=== PATIENT | female | born 1960 | race Caucasian/White ===

== ENCOUNTER 2024-09-18 09:05 | Outpatient (OUT) | payer MEDICARE, SELFPAY ==
[2024-09-18 09:22] LABS: Hemoglobin 13.2 g/dL (12.0-16.0)
[2024-09-18 09:23] LABS: PCO2 VBG 41.9 mmHg (40.0-52.0); pH VBG 7.433 (7.330-7.430)
--- NOTE | 2024-09-18 10:13 | RT_ITS ---
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 Findings were considered accurate and reproducible. No bronchodilator was administered due to normal spirometric values. Spirometry: -FEV1/FVC: Normal @ 81% -FEV1: Normal @ 92% -FVC: Normal @ 87% Lung volumes by plethysmography: -RV: Normal @ 109% -TLC: Normal @ 102% Diffusion capacity: -DLCO: Mild-moderate reduction @ 67% when corrected for Hb 13.2g/dL Prior PFT 04/28/2022: -Weight 159#/BMI 27.3 -FEV1: 99% -FVC: 96% -T% -DLCO: 79% Impressions: -Essentially normal spirometry and lung volumes, with isolated mild-moderate diffusion impairment. When compared to prior testing, there is a mild reduction in spirometric values likely due to a 21# weight gain causing mild physiologic restriction. More significant is a decrease in DLCO from 79% to 67%. This pattern can be seen in, but not restricted to, cardiopulmonary vascular disorders, early interstitial lung disease, and early emphysema. Clinical correlation required. Electronically Signed On 09-24-2024 8:11:29 EST by Juan Levine
== END 2024-09-18 09:06 | disposition home or self-care (01) ==
LOC: CARD 09:06
PROVIDERS: PCP Nurse Practitioner; Visit Provider Internal Medicine
DX: J45.20 Mild intermittent asthma, uncomplicated (principal); M45.6 Ankylosing spondylitis lumbar region
CPT/HCPCS: 36415; 82800; 85018; 94010; 94726; 94729

== ENCOUNTER 2024-10-28 07:45 | Outpatient (OUT) | payer MEDICARE, SELFPAY ==
--- NOTE | 2024-10-28 | PCN_ITS ---
CARDIAC STRESS TEST Requesting Physician: Hugo Gross M.D. Procedure Date: 10/28/2024 PERFORMING PROVIDER: Hugo Gross M.D. INDICATION: Chest pain. STRESS TEST PROTOCOL: Lexiscan myocardial perfusion imaging. Resting heart rate: 67 beats per minute. Maximum heart rate: 89 beats per minute. Peak maximal heart rate: 56% Resting blood pressure: 138/78 Maximum blood pressure: 152/82 CONCLUSION: 1. Resting EKG demonstrates normal sinus rhythm. 2. There were no ST changes meeting the criteria for ischemia post Lexiscan infusion. 3. Please refer to separately interpreted and reported nuclear myocardial perfusion imaging. [facility]
--- OUTSIDE RECORDS SUMMARY | 2024-10-28 07:49 | XMS_ITS | CCD ---
Author Organization [facility] Care Team Providers Care Wrist Closer Name Role Phone CAIT, WILFRED N Attending Unavailable MISC, DR BELLO Primary Care Unavailable CAIT, WILFRED N Admitting Unavailable CAIT, WILFRED N Consulting Unavailable CAIT, WILFRED N Attending Unavailable MISC, DR BELLO Primary Care Unavailable ZIEBER, DR ALEJANDRA Pat Consulting Unavailable CAIT, WILFRED N Admitting Unavailable CAIT, WILFRED N Consulting Unavailable CAIT, WILFRED N Consulting Unavailable CAIT, WILFRED N Attending Unavailable REQUEST, DR CRUZ LISTED Primary Care Unavaila ble CAIT, WILFRED N Admitting Unavailable MISC, DR BELLO Primary Care Unavailable AICHHOLZ, DANCE PROFESSOR CORRINE Consulting Unavailable AICHHOLZ, DANCE PROFESSOR CORRINE Attending Unavailable AICHHOLZ, DANCE PROFESSOR CORRINE Admitting Unavailable MISC, DR BELLO Primary Care Unavailable AICHHOLZ, DANCE PROFESSOR CORRINE Attending Unavailable AICHHOLZ, DANCE PROFESSOR CORRINE Admitting Unavailable MISC, DR BELLO Primary Care Unavailable SAMSA ., STEFFI Admitting Unavailable SAMSA ., STEFFI Consulting Unavailable SAMSA ., STEFFI Attending Unavailable MISC, DR BELLO Primary Care Unavailable SAMSA ., STEFFI Attending Unavailable SAMSA ., STEFFI Admitting Unavailable SAMSA ., STEFFI Consulting Unavailable UNLU, KRZYSZTOF Consulting Unavailable AICHHOLZ, DANCE PROFESSOR CORRINE Consulting Unavailable AICHHOLZ, DANCE PROFESSOR CORRINE Attending Unavailable AICHHOLZ, DANCE PROFESSOR CORRINE Admitting Unavailable ZIEBER, DR ALEJANDRA Pat Consulting Unavailable AICHHOLZ, DANCE PROFESSOR CORRINE Consulting Unavailable AICHHOLZ, DANCE PROFESSOR CORRINE Attending Unavailable AICHHOLZ, DANCE PROFESSOR CORRINE Admitting Unavailable MISC, DR BELLO Primary Care Unavailable GABY KOCH Attending Unavailable GABY KOCH Admitting Unavailable GABY KOCH Consulting Unavailable RASTEGAR, DEREK Consulting Unavailable SATINDER ., DR TSANG Attending Unavailable HOY ., DR TSANG Admitting Unavailable GIORGIO MURRAY Primary Care Unavailable HOY ., DR TSANG Consulting Unavailable ZIEBER, DR ALEJANDRA Pat Consulting Unavailable MARKER ., DR HARDIN Consulting Unavailable SAMSA ., STEFFI Consulting Unavailable OTILIO CARRASQUILLO Consulting Unavailable YONIS ., JAY Consulting Unavailable DARAMOLAZE Consulting Unavailable NEWATIA, DARRELL Consulting Unavailable RASTEGAR, DEREK Consulting Unavailable HOY ., DR TSANG Attending Unavailable HOY ., DR TSANG Admitting Unavailable HOY ., DR TSANG Consulting Unavailable [facility] [place], DR BELLO Primary Care Unavailable PANTERAEBER, DR ALEJANDRA Pat Consulting Unavailable ZE ., APOLLO TIRADO Consulting Unavailpati ALLAN, TRISTAN Consulting Unavailable Aichholz RECORDS TECH, Corrine Unavailable Kiki MILLER, Agustin Primary Care Provider Aichholz RECORDS TECH, Corrine Unavailable Kiki MILLER, Agustin Primary Care Provider [phone] Aichholz RECORDS TECH, Corrine Unavailable Unallocatfermin MILLER, Nereyda Provider Primary Care [facility] AICHHOLZ, CORRINE J Referring Unavailable AICHHOLZ, CORRINE J Primary Care Unavailable AICHHOLZ, CORRINE J Referring Unavailable AICHHOLZ, CORRINE J Primary Care Unavailable SILCOX, ALEXANDRA L Referring Unavailable AICHHOLZ, CORRINE J Primary Care Unavailable SILCOX, ALEXANDRA L Referring Unavailable AICHHOLZ, CORRINE J Primary Care Unavailable SILCOX, ALEXANDRA L Referring Unavailable AICHHOLZ, CORRINE J Primary Care Unavailable AICHHOLZ, CORRINE J Referring Unavailable AICHHOLZ, CORRINE J Primary Care Unavailable SILCOX, ALEXANDRA L Referring Unavailable AICHHOLZ, CORRINE J Referring Unavailable AICHHOLZ, CORRINE J Primary Care Unavailable AICHHOLZ, CORRINE J Referring Unavailable AICHHOLZ, CORRINE J Primary Care Unavailable AICHHOLZ, CORRINE J Referring Unavailable AICHHOLZ, CORRINE J Primary Care Unavailable Kiki MILLER, Agustin Primary Care Provider [phone] AICHHOLZ, CORRINE Attending Unavailable AICHHOLZ, CORRINE Attending Unavailable AICHHOLZ, CORRINE Attending Unavailable AICHHOLZ, CORRINE Attending Unavailable AICHHOLZ, CORRINE Attending Unavailable AICHHOLZ, CORRINE Attending Unavailable NORTHEIM, KOJO Attending Unavailable AICHHOLZ, CORRINE Referring Unavailable AICHHOLZ, CORRINE Attending Unavailable AICHHOLZ, CORRINE Attending Unavailable AICHHOLZ, CORRINE Attending Unavailable MED CAL[place]TO Attending Unavailable Allergies Allergy Classification Reported Allergen(s) Allergy Type Date of Onset Reaction(s) Facility (1 source) carvedilol Drug Allergy 0 [facility] Repository (1 source) exenatide Drug Allergy 0 [facility] (1 source) Insulin Glargine Drug Allergy 0 [facility] (1 source) liraglutide Drug Allergy 0 [facility] (1 source) Losartan Drug Allergy 0 [facility] Rep[facility] (3 sources) metFORMIN; Translations: [METFORMIN] Drug Allergy 2 [facility] (1 source) Thyrotropin-Rel easing Hormone Drug Allergy 0 [facility] Rep[facility] (20 sources) carvedilol; Translations: [CARVEDILOL] Drug Allergy 2 Hives, Unknown [facility] (20 sources) exenatide; Translations: [EXENATIDE] Drug Allergy 4 Anaphylaxis, Unknown, Swelling [facility] (20 sources) glyBURIDE / metFORMIN; Translations: [GLYBURIDE-METF ORMIN] Drug Allergy 2 Hives, Unknown [facility] (20 sources) liraglutide; Translations: [LIRAGLUTIDE] Drug Allergy 4 [facility] (20 sources) Losartan; Translations: [LOSARTAN] Drug Allergy 2 Hives, Unknown [facility] (20 sources) metFORMIN Drug Allergy 2 Hives, Unknown [facility] (20 sources) metFORMIN; Translations: [METFORMIN HCL] Drug Allergy 2 Unknown [facility] (20 sources) Morphine; Translations: [MORPHINE] Drug Allergy 5 [facility] (20 sources) rosiglitazone; Translations: [ROSIGLITAZONE] Drug Allergy 4 Anaphylaxis [facility] (20 sources) Sulfasalazine; Translations: [SULFASALAZINE] Propensity to adverse reactions 7 Other [facility] (20 sources) Corylus Propensity to adverse reactions 2 Unknown [facility] (16 sources) Hazelnut Allergy to substance 0 Anaphylaxis [facility] (1 source) Hazelnut; Translations: [HAZELNUT] Propensity to adverse reactions to food (disorder) 2 [facility] Repository (1 source) Losartan; Translations: [LOSARTAN POTASSIUM] Drug Allergy 2 [facility] Repository Medications Current Medications Medication Drug Class(es) Dates Sig (Normalized) Sig (Original) albuterol 0.83 mg/ml inhalation solution (20 sources) beta2-Adrenergic Agonist Start: 05-08-2024 End: 06-07-2024 albuterol (2.5 MG/3ML) 0.083% nebulizer solution Indications: Asthma, unspecified asthma severity, unspecified whether complicated, unspecified whether persistent (CMS/HCC) Take 3 mL (2.5 mg) by nebulization every 6 (six) hours if needed for wheezing 225 mL 1 05/08/2024 Active Start: 05-08-2024 End: 06-07-2024 take 2 puff(s) by inhalation every six hours for wheezing albuterol HFA 90 mcg/act inhaler Indications: Asthma, unspecified asthma severity, unspecified whether complicated, unspecified whether persistent (CMS/HCC) Inhale 2 puffs every 6 (six) hours if needed for wheezing or shortness of breath 18 g 1 05/08/2024 Active End: 05-08-2024 take 2 puff(s) by inhalation every four hours for wheezing albuterol HFA 90 mcg/act inhaler Inhale 2 puffs every 4 (four) hours if needed for wheezing 05/08/2024 Discontinued amoxicillin 875 mg / clavulanate 125 mg oral tablet (2 sources) Penicillin-class Antibacterial Start: 05-14-2024 End: 05-24-2024 take 1 tablet by mouth in the morning amoxicillin-clavulanate (Augmentin) 875-125 MG tablet Indications: Dental infection , Sebaceous cyst of axilla , Upper respiratory tract infection, unspecified type Take 1 tablet (875 mg) by mouth in the morning and 1 tablet (875 mg) before bedtime. Do all this for 10 days. Take with food. 20 tablet 05/14/2024 05/24/2024 Active aspirin 81 mg delayed release oral tablet (3 sources) Platelet Aggregation Inhibitor, Nonsteroidal Anti-inflammatory Drug take 1 tablet by mouth once daily aspirin 81 MG EC tablet Take 81 mg by mouth Daily Active atorvastatin 80 mg oral tablet (20 sources) HMG-CoA Reductase Inhibitor Start: 01-24-2024 End: 11-11-2024 take 1 tablet by mouth at bedtime atorvastatin (Lipitor) 80 MG tablet Indications: Mixed hyperlipidemia (CMS/HCC) Take 1 tablet (80 mg) by mouth at bedtime 90 tablet 1 08/13/2024 11/11/2024 Active take 1 tablet by mouth in the mo rning atorvastatin (Lipitor) 80 MG tablet Take 80 mg by mouth in the morning. 0 Active 60 actuat budesonide 0.16 mg/actuat / formoterol fumarate 0.0045 mg/actuat metered dose inhaler (20 sources) Corticosteroid, beta2-Adrenergic Agonist take 2 puff(s) by inhalation in the morning budesonide-formoterol (Symbicort) 160-4.5 MCG/ACT inhaler Inhale 2 puffs in the morning and 2 puffs before bedtime. Rinse mouth with water after use to reduce aftertaste and incidence of candidiasis. Do not swallow.. Active busPIRone hydrochloride 7.5 mg oral tablet (4 sources) take 1 tablet by mouth in the morning busPIRone (Buspar) 7.5 MG tablet Take 7.5 mg by mouth in the morning and 7.5 mg before bedtime. 0 Active Continuous Glucose Spragger (Dexcom G7 Spragger) device (16 sources) Start : 01-23 End: 01-23 Continuous Glucose Spragger (Dexcom G7 Spragger) device Indications: Type 2 diabetes mellitus with hyperglycemia, with long-term current use of insulin (CMS/HCC) 1 each Daily 1 each 01/24/2024 01/23/2025 Active Continuous Glucose Sensor (Dexcom G7 Sensor) misc (8 sources) Start : 08-09 Continuous Glucose Sensor (Dexcom G7 Sensor) misc CHANGE EVERY 10 DAYS 08/09/2024 Active Start: 06-25-2024 End: 07-25-2024 Continuous Glucose Sensor (D excom G7 Sensor) misc Indications: Type 2 diabetes mellitus with hyperglycemia, with long-term current use of insulin (CMS/HCC) 1 each Daily 3 each 06/25/2024 07/25/2024 Active End: 06-25-2024 Continuous Glucose Sensor (D excom G7 Sensor) misc 1 each Daily 06/25/2024 Discontinued (Reorder) dulaglutide (Trulicity) 3 MG/0.5ML solution pen-injector (4 sources) inject 3 mg by subcutaneous injection every week dulaglutide (Trulicity) 3 MG/0.5ML solution pen-injector Inject 3 mg under the skin 1 (one) time per week 0 Active DULoxetine 60 mg delayed release oral capsule (20 sources) Serotonin and Norepinephrine Reuptake Inhibitor Start: End: 025 take 1 capsule by mouth once daily DULoxetine (Cymbalta) [address] capsule Indications: Anxiety and depression (CMS/HCC) Take 1 capsule (60 mg) by mouth Daily 90 capsule 1 08/13/2024 11/11/2024 Active take 1 capsule by mouth in the m orning DULoxetine (Cymbalta) [address] capsule Take 60 mg by mouth in the morning and 60 mg before bedtime. Do not crush or chew.. 0 Active fluconazole 150 mg oral tablet (3 sources) Azole Antifungal Start: 10-05-2023 fluconazole (Diflucan) 150 MG tablet Indications: Yeast infection involving the vagina and surrounding area Take 1 pill every 72 hours for 3 doses 1 tablet 0 10/05/2023 Active fluticasone propionate 0.05 mg/actuat metered dose nasal spray (20 sources) Corticosteroid Start: 10-26-2023 End: 09-12-2024 take 2 spray(s) nasal route in the morning fluticasone (Flonase) 50 MCG/ACT nasal spray Indications: Asthma, unspecified asthma severity, unspecified whether complicated, unspecified whether persistent (CMS/HCC) Administer 2 sprays into each nostril in the morning and 2 sprays before bedtime. Shake gently. Before first use, prime pump. After use, clean tip and replace cap.. 16 g 2 08/13/2024 Active take 2 spray(s) nasa l route in the morning fluticasone (Flonase) 50 MCG/ACT nasal spray Administer 2 sprays into each nostril in the morning and 2 sprays before bedtime. Shake gently. Before first use, prime pump. After use, clean tip and replace cap.. 0 Active furosemide 40 mg oral tablet (20 sources) Loop Diuretic Start: 01-24-2024 End: 11-11-2024 take 1 tablet by mouth once daily furosemide (Lasix) 40 MG tablet Indications: Benign essential hypertension (CMS/HCC) Take 1 tablet (40 mg) by mouth Daily 90 tablet 1 08/13/2024 11/11/2024 Active take 1 tablet by mouth in the mo rning furosemide (Lasix) 40 MG tablet Take 40 mg by mouth in the morning. 0 Active gabapentin 300 mg oral capsule (20 sources) Anti-epileptic Agent Start: 02-22-2024 End: 11-11-2024 take 1 capsule by mouth every six hours gabapentin (Neurontin) 300 MG capsule Indications: Diabetic polyneuropathy associated with type 2 diabetes mellitus (CMS/HCC) Take 1 capsule (300 mg) by mouth every 6 (six) hours 360 capsule 08/13/2024 11/11/2024 Active take 1 capsule by mouth every si x hours gabapentin (Neurontin) 300 MG capsule Take 300 mg by mouth every 6 (six) hours 0 Active glipiZIDE 5 mg oral tablet (4 sources) Sulfonylurea take 1 tablet by mouth in the morning glipiZIDE (Glucotrol) 5 MG tablet Take 5 mg by mouth in the morning and 5 mg in the evening. Take before meals. 0 Active insulin detemir 100 unt/ml injectable solution (4 sources) Insulin Analog inject 46 [IU] by subcutaneous injection at bedtime insulin detemir (Levemir) 100 UNIT/ML injection Inject 46 Units under the skin at bedtime 0 Active 3 ml insulin glargine 100 unt/ml pen injector (16 sources) Insulin Analog Start: 4 End: 4 inject 40 [IU] by subcutaneous injection in the morning insulin glargine (Lantus SoloStar) 100 UNIT/ML pen Indications: Type 2 diabetes mellitus with hyperglycemia, with long-term current use of insulin (CMS/HCC) Inject 40 Units under the skin in the morning and 40 Units before bedtime. 72 mL 1 05/08/2024 Active Start: 01-24-2024 inject 44 [IU] by cruz bcutaneous injection in the morning insulin glargine (Lantus SoloStar) 100 UNIT/ML pen Indications: Type 2 diabetes mellitus with hyperglycemia, with long-term current use of insulin (CMS/HCC) Inject 44 Units under the skin in the morning and 44 Units before bedtime. 9 each 3 01/24/2024 Active 3 ml insulin lispro 100 unt/ml pen injector (20 sources) Insulin Analog Start: 01-03-2024 End: 06-21-2024 insulin lispro (HumaLOG KWIKPEN) 100 UNIT/ML injection Indications: Type 2 diabetes mellitus with hyperglycemia, with long-term current use of insulin (CMS/HCC) Sliding scale insulin up to 5 times daily, max 150 units daily 45 mL 3 06/21/2024 Active insulin lispro ( HumaLOG José Miguel KwikPen) 100 UNIT/ML injection Inject under the skin 3 (three) times a day with meals sliding scale before meals less than 110 none, 151 to 200 3 units plus 10,201-250 5 units plus 10 251-300 7 units plus 10 301- 9 units plus 10 351-400 11units plus 10 >13 units plus 10 and call doctor 0 Active 3 ml insulin lispro 50 unt/ml / insulin lispro protamine, human 50 unt/ml pen injector (4 sources) Insulin Analog insulin lispro protamine-insulin lispro (HumaLOG MIX 50/50 KWIKPEN) (50-50) 100 UNIT/ML injection Inject under the skin 2 (two) times a day with meals (one) subcutaneous per sliding scale up to 5 times daily, (8 units plus sliding scale) 0 Active lisinopril 40 mg oral tablet (20 sources) Angiotensin Converting Enzyme Inhibitor Start: 12-31-19 24 End: 11-12-19 25 take 1 tablet by mouth once daily lisinopril 40 MG tablet Indications: Benign essential hypertension (CMS/HCC) Take 1 tablet (40 mg) by mouth Daily 90 tablet 1 08/13/2024 11/11/2024 Active take 1 tablet by mouth in the mo rning lisinopril 40 MG tablet Take 40 mg by mouth in the morning. 0 Active meloxicam 15 mg oral tablet (19 sources) Nonsteroidal Anti-inflammatory Drug Start: 05-08-2024 End: 11-11-2024 take 1 tablet by mouth once daily meloxicam (Mobic) 15 MG tablet Indications: Ankylosing spondylitis of lumbar region (CMS/HCC) Take 1 tablet (15 mg) by mouth Daily 90 tablet 1 08/13/2024 11/11/2024 Active take 1 tablet by mouth in the mo rning meloxicam (Mobic) 15 MG tablet Take 15 mg by mouth in the morning. 0 Active 24 hr metoprolol succinate 50 mg extended release oral tablet (20 sources) beta-Adrenergic Lara Start: 05-08-2024 End: 11-11-2024 take 1 tablet by mouth once daily metoprolol succinate XL (Toprol-XL) 50 MG 24 hr tablet Indications: Benign essential hypertension (CMS/HCC) Take 1 tablet (50 mg) by mouth Daily 90 tablet 1 08/13/2024 11/11/2024 Active Start: 02-29-2024 take 1.5 tablets by mouth once daily metoprolol succinate XL (Toprol-XL) 50 MG 24 hr tablet Indications: Benign essential hypertension (CMS/HCC) Take 1.5 tablets (75 mg) by mouth Daily Do not crush or chew. 45 tablet 1 02/29/2024 Active take 1 tablet by carlee th every twenty-four hours in the morning metoprolol succinate XL (Toprol-XL) 100 MG 24 hr tablet Take 100 mg by mouth in the morning. Do not crush or chew.. 0 Active montelukast 10 mg oral tablet (20 sources) Leukotriene Receptor Antagonist Start: 12-31-2023 End: 11-11-2024 take 1 tablet by mouth at bedtime montelukast (Singulair) 10 MG tablet Indications: Asthma, unspecified asthma severity, unspecified whether complicated, unspecified whether persistent (CMS/HCC) Take 1 tablet (10 mg) by mouth at bedtime 90 tablet 1 08/13/2024 11/11/2024 Active take 1 tablet by mouth once lata y montelukast (Singulair) 10 MG tablet Take 10 mg by mouth 1 (one) time each day 0 Active omeprazole 40 mg delayed release oral capsule (20 sources) Proton Pump Inhibitor Start: 03-26-2024 End: 11-21-2024 take 1 capsule by mouth before mealtime omeprazole (PriLOSEC) [address] capsule Indications: Gastroesophageal reflux disease without esophagitis Take 1 capsule (40 mg) by mouth in the morning. Take before meals. Do not crush or chew.. 90 capsule 1 08/13/2024 11/21/2024 Active take 1 capsule by mouth before m ealtime omeprazole (PriLOSEC) [address] capsule Take 40 mg by mouth in the morning. Take before meals. Do not crush or chew.. 0 Active semaglutide (Ozempic, 1 MG/DOSE,) 4 MG/3ML solution pen-injector (15 sources) Start: 08-13-2024 End: 11-05-2024 inject 1 mg by subcutaneous injection every week semaglutide (Ozempic, 1 MG/DOSE,) 4 MG/3ML solution pen-injector Indications: Type 2 diabetes mellitus with hyperglycemia, with long-term current use of insulin (CMS/HCC) Inject 1 mg under the skin 1 (one) time per week 9 mL 1 08/13/2024 11/05/2024 Active Start: 05-08-2024 End: 08-13-2024 inject 1 mg by subcutaneous injection every week semaglutide (Ozempic, 1 MG/DOSE,) 4 MG/3ML solution pen-injector Indications: Type 2 diabetes mellitus with hyperglycemia, with long-term current use of insulin (CMS/HCC) Inject 1 mg under the skin 1 (one) time per week 9 mL 1 05/08/2024 08/13/2024 Discontinued (Reorder) Start: 05-08-2024 End: 07-31-2024 inject 1 mg by subcutaneous injection every week semaglutide (Ozempic, 1 MG/DOSE,) 4 MG/3ML solution pen-injector Indications: Type 2 diabetes mellitus with hyperglycemia, with long-term current use of insulin (CMS/HCC) Inject 1 mg under the skin 1 (one) time per week 9 mL 1 05/08/2024 07/31/2024 Active 28 actuat tiotropium 0.40963 mg/actuat inhalation spray (20 sources) Anticholinergic take 1 capsule by inhalation in the morning tiotropium (Spiriva Respimat) 1.25 MCG/ACT inhaler Inhale 1 capsule in the morning. Active Completed/Discontinued Medications Medication Drug Class(es) Dates Sig (Normalized) Sig (Original) Semaglutide,0.25 or 0.5MG/DOS, (Ozempic, 0.25 or 0.5 MG/DOSE,) 2 MG/3ML solution pen-injector (11 sources) Start: 03-26-2024 End: 06-25-2024 Semaglutide,0.25 or 0.5MG/DOS, (Ozempic, 0.25 or 0.5 MG/DOSE,) 2 MG/3ML solution pen-injector Indications: Type 2 Diabetes Mellitus Inject 0.25 mg under the skin every 7 (seven) days for 28 days 3 mL 1 03/26/2024 06/25/2024 Discontinued (Therapy completed) Start: 03-26-2024 Semaglutide,0. 25 or 0.5MG/DOS, (Ozempic, 0.25 or 0.5 MG/DOSE,) 2 MG/3ML solution pen-injector Indications: Type 2 Diabetes Mellitus Inject 0.25 mg under the skin every 7 (seven) days for 28 days 3 mL 1 03/26/2024 Active Problems Active Problems Problem Classification Problem Date Documented Date Episodic/Chronic Abdominal pain (9 sources) Right lower quadrant pain; Translations: [Right lower quadrant pain] Onset: 06-25-2024 06-25-2024 Episodic Anxiety disorders (20 sources) Mixed anxiety and depressive disorder; Translations: [Anxiety disorder, unspecified] Onset: 10-05-2023 10-05-2023 Chronic Asthma (20 sources) Asthma; Translations: [Unspecified asthma, uncomplicated] Onset: 10-05-2023 10-05-2023 Chronic Chronic obstructive pulmonary disease and bronchiectasis (20 sources) Chronic obstructive pulmonary disease, unspecified; Translations: [Chronic obstructive lung disease] Onset: 03-01-2022 10-05-2023 Chronic Congestive heart failure; nonhypertensive (1 source) Heart failure, unspecified; Translations: [HEART FAILURE UNSPECIFIED] Onset: 12-13-2022 Chronic Diabetes mellitus with complications (20 sources) Type 2 diabetes mellitus with hyperglycemia; Translations: [Type 2 diabetes mellitus] Onset: 03-01-2022 Resolved: 07-25-2024 08-16-2023 Chronic Diabetes mellitus without complication (3 sources) Type 2 diabetes mellitus without complications; Translations: [Diabetes mellitus without complication] Onset: 04-26-2022 08-16-2023 Chronic Disorders of lipid metabolism (20 sources) Pure hypercholesterolemia, unspecified; Translations: [Hyperlipidemia] Onset: 04-26-2022 08-16-2023 Chronic Esophageal disorders (20 sources) Gastroesophageal reflux disease without esophagitis; Translations: [Gastro-esophageal reflux disease without esophagitis] Onset: 10-05-2023 10-05-2023 Chronic Essential hypertension (20 sources) Essential (primary) hypertension; Translations: [Benign essential hypertension] Onset: 06-30-2006 08-16-2023 Chronic Heart valve disorders (20 sources) Aortic valve disorder; Translations: [Nonrheumatic aortic valve disorder, unspecified] Onset: 03-21-2014 08-16-2023 Chronic Malaise and fatigue (20 sources) Fatigue; Translations: [Chronic fatigue, unspecified] Onset: 06-21-2016 08-16-2023 Chronic Melanomas of skin (16 sources) Malignant melanoma; Translations: [Malignant melanoma of skin, unspecified] Onset: 11-16-2023 11-16-2023 Chronic Nonspecific chest pain (20 sources) Chest pain, unspecified; Translations: [Chest pain] Onset: 09-05-2017 Episodic Other aftercare (1 source) Other long term care administrator (current) drug therapy; Translations: [OTH SENIOR CARE CURRENT DRUG THERAPY] Onset: 12-13-2022 Episodic Other aftercare (1 source) terminal manager (current) use of aspirin; Translations: [SENIOR CARE CURRENT USE OF ASPIRIN] Onset: 12-13-2022 Episodic Other aftercare (2 sources) Long-term current use of insulin; Translations: [terminal manager (current) use of insulin] 10-05-2023 Episodic Other eye disorders (5 sources) Pain of bilateral eyes; Translations: [Ocular pain, bilateral] Onset: 08-13-2024 08-13-2024 Episodic Other lower respiratory disease (4 sources) Chronic cough; Translations: [CHRONIC COUGH] Onset: 01-03-2023 Episodic Other lower respiratory disease (6 sources) Shortness of breath; Translations: [SHORTNESS OF BREATH] Onset: 04-06-2022 Episodic Other nervous system disorders (1 source) Other chronic pain; Translations: [Other chronic pain] Onset: 11-15-2023 Chronic Other non-traumatic joint disorders (20 sources) Polyarthropathy; Translations: [Polyarthritis, unspecified] Onset: 10-04-2016 08-16-2023 Chronic Rheumatoid arthritis and related disease (20 sources) Ankylosing spondylitis; Translations: [Ankylosing spondylitis lumbar region] Onset: 10-05-2023 10-05-2023 Chronic Syncope (6 sources) Syncope and collapse; Translations: [SYNCOPE AND COLLAPSE] Onset: 02-04-2022 Episodic Unclassified (2 sources) COUGH, UNSPECIFIED; Translations: [COUGH, UNSPECIFIED] Onset: 12-13-2022 Unclassified (4 sources) CONTACT W/AND (SUSP) EXPOS COVID-19; Translations: [CONTACT W/AND (SUSP) EXPOS COVID-19] Onset: 09-29-2022 Unclassified (1 source) PERSONAL HISTORY OF COVID-19; Translations: [PERSONAL HISTORY OF COVID-19] Onset: 04-13-2022 Past or Other Problems Problem Classification Problem Date Documented Date Episodic/Chronic Acute and unspecified renal failure (1 source) Acute kidney failure, unspecified; Translations: [ACUTE KIDNEY FAILURE UNSPECIFIED] Onset: 03-01-2022 Episodic Allergic reactions (20 sources) Allergic condition; Translations: [Allergy, unspecified, initial encounter] Onset: 10-05-2023 10-05-2023 Episodic Cardiac dysrhythmias (20 sources) Palpitations; Translations: [Palpitations] Onset: 09-05-2017 08-16-2023 Episodic Disorders of teeth and jaw (13 sources) Infection of tooth; Translations: [Periapical abscess without sinus] Onset: 05-14-2024 Resolved: 08-13-2024 05-14-2024 Episodic Fluid and electrolyte disorders (1 source) Hypo-osmolality and hyponatremia; Translations: [HYPO-OSMOLALITY AND HYPONATREMIA] Onset: 03-01-2022 Episodic Heart valve disorders (1 source) Cardiac murmur, unspecified; Translations: [CARDIAC MURMUR UNSPECIFIED] Onset: 02-10-2022 Episodic Melanomas of skin (3 sources) Personal history of malignant melanoma of skin; Translations: [History of malignant melanoma of the skin] Onset: 12-13-2022 05-07-2024 Episodic Mood disorders (16 sources) Mood disorders Onset: 02-29-2024 02-29-2024 Mycoses (20 sources) Candidal vulvovaginitis; Translations: [Yeast infection involving the vagina and surrounding area] Onset: 10-05-2023 10-05-2023 Episodic Noninfectious gastroenteritis (20 sources) Colitis; Translations: [Noninfective gastroenteritis and colitis, unspecified] Onset: 03-14-2017 08-16-2023 Episodic Other aftercare (2 sources) snf (current) use of insulin; Translations: [SENIOR CARE CURRENT USE OF INSULIN] Onset: 12-13-2022 Episodic Other and unspecified benign neoplasm (2 sources) Melanocytic nevus of right lower limb; Translations: [Melanocytic nevi of right lower limb, including hip] 05-07-2024 Episodic Other and unspecified benign neoplasm (2 sources) Melanocytic nevus of shoulder; Translations: [Melanocytic nevi of right upper limb, including shoulder] 05-07-2024 Episodic Other circulatory disease (16 sources) Orthostatic hypotension; Translations: [Orthostatic hypotension] Onset: 02-29-2024 02-29-2024 Episodic Other lower respiratory disease (4 sources) Other forms of dyspnea; Translations: [OTHER FORMS OF DYSPNEA] Onset: 04-28-2022 Episodic Other lower respiratory disease (20 sources) Dyspnea; Translations: [Dyspnea, unspecified] Onset: 04-26-2022 08-16-2023 Episodic Other non-traumatic joint disorders (20 sources) Hip pain; Translations: [Pain in left hip] Onset: 10-04-2016 08-16-2023 Episodic Other non-traumatic joint disorders (16 sources) Chronic ankle pain; Translations: [Pain in right ankle and joints of right foot] Onset: 10-26-2023 10-26-2023 Episodic Other non-traumatic joint disorders (1 source) Pain in right ankle and joints of right foot; Translations: [Pain in right ankle and joints of right foot] Onset: 11-15-2023 Episodic Other nutritional; endocrine; and metabolic disorders (20 sources) Body mass index 25-29 - overweight; Translations: [Overweight] Onset: 03-26-2024 03-26-2024 Episodic Other screening for suspected conditions (not mental disorders or infectious disease) (14 sources) Patient encounter status; Translations: [Encounter for screening mammogram for malignant neoplasm of breast] Onset: 05-08-2024 05-08-2024 Episodic Other skin disorders (13 sources) Sebaceous cyst of skin; Translations: [Sebaceous cyst] Onset: 05-14-2024 05-14-2024 Episodic Other skin disorders (2 sources) Epidermoid cyst; Translations: [Epidermal cyst] 05-07-2024 Episodic Other skin disorders (2 sources) Skin tag; Translations: [Other hypertrophic disorders of the skin] 05-07-2024 Episodic Other skin disorders (2 sources) Asteatosis cutis; Translations: [Xerosis cutis] 05-07-2024 Episodic Other upper respiratory infections (14 sources) Acute upper respiratory infection, unspecified; Translations: [Upper respiratory infection] Onset: 12-13-2022 Resolved: 08-13-2024 05-14-2024 Episodic Residual codes; unclassified (1 source) Acquired absence of uterus with remaining cervical stump; Translations: [ACQ ABSENCE UTRUS REM CERV STUMP] Onset: 03-01-2022 Episodic Residual codes; unclassified (20 sources) 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; Translations: [Genetic susceptibility to other disease] Onset: 10-04-2016 08-16-2023 Episodic Residual codes; unclassified (20 sources) Edema; Translations: [Edema, unspecified] Onset: 10-05-2023 10-05-2023 Episodic Residual codes; unclassified (1 source) Pain, unspecified; Translations: [Pain, unspecified] Onset: 11-15-2023 Episodic Residual codes; unclassified (2 sources) Pain; Translations: [Pain, unspecified] 05-07-2024 Episodic Unclassified (1 source) COUGH, UNSPECIFIED; Translations: [COUGH, UNSPECIFIED] Onset: 12-12-2022 Unclassified (1 source) CONTACT W/AND (SUSP) EXPOS COVID-19; Translations: [CONTACT W/AND (SUSP) EXPOS COVID-19] Onset: 09-27-2022 Viral infection (20 sources) Verruca plantaris; Translations: [Plantar wart] Onset: 08-16-2023 08-16-2023 Episodic Results Test Name Value Interpretation Reference Range Facility ALL BLOOD GAS (VENOUS)on Interpretation and review of laboratory results Abnormal [facility] PCO2 VBG 41.9 [facility] PH VBG 7.433 High 7.330 - 7.430 [facility] ALL HEMOGLOBINon 09-18-2024 Hemoglobin (Bld) [Mass/Vol] 13.2 g/dL 12.0 - 16.0 g/dL [facility] No Panel Informationon 09-18 [facility] MAMM SCREENING BILATERAL W C mammography technologist 07-04-2024 MAMM SCREENING BILATERAL W CAD MAMM SCREENING BILATERAL W CAD GIORGIO CARSON 1960 [id number] EXAM: MAMM SCREENING BILATERAL W CAD, 07/03/2024 2:21 PM CLINICAL INDICATIONS: Screening, Encounter for screening mammogram for malignant neoplasm of breast COMPARISON: 05/24/2023 TECHNIQUE: Bilateral digital tomosynthesis MLO and CC views of the breasts were obtained, with creation of synthetic 2D views. Computer aided detection was utilized. FINDINGS: There are scattered areas of fibroglandular density. There are no suspicious masses, calcifications, or areas of architectural distortion. IMPRESSION: No mammographic evidence of malignancy. BI-RADS: BI-RADS 1 - Negative RECOMMENDATION: Routine screening mammogram in 1 year. RISK ASSESSMENT: TC Lifetime risk: 5.68%. The patient's reported personal and family medical history was used calculate their Tyrer-Cuzick lifetime risk of malignancy. Scores less than 20% are not considered high risk per ACR guidelines and patient should continue with the above recommendation. Finalized by Enzo López MD on 07/04/2024 11:18 AM 1 b MAMM 1 YR Normal [facility] BASIC METABOLIC PANLon 06-27 Anion gap [Moles/Vol] 6 mmol/L Normal 5-15 [facility] Comment on above: Performed By: #### M OTONIEL #### [facility] ([id number]) [address], [address] [place] [address] Calcium [Mass/Vol] 9.2 mg/dL Normal 8.5-10.5 [facility] Comment on above: Performed By: #### M ALBU #### [facility] ([id number]) [address], [address] [place] [address] Chloride [Moles/Vol] 101 mmol/L Normal 98-109 [facility] Comment on above: Performed By: #### M ALBU #### [facility] ([id number]) [address], [address] [place] [address] CO2 [Moles/Vol] 29 mmol/L Normal 22-32 [facility] Comment on above: Performed By: #### M ALBU #### [facility] ([id number]) [address], [address] [place] [address] Creatinine [Mass/Vol] 0.77 mg/dL Normal 0.40-1.00 [facility] Comment on above: Result Comment: METH OD TRACEABLE TO IDMS STANDARD Performed By: #### M ALBU #### [facility] ([id number]) [address], [address] [place] [address] GFR/1.73 sq M.predicted among non-blacks MDRD (S/P/Bld) [Vol rate/Area] 87 mL/min/{1.73_m2} Normal >59 [facility] Comment on above: Result Comment: Reported eGFR is based on the CKD-EPI 2020 equation that does not use a race coefficient. Performed By: #### M ALBU #### [facility] ([id number]) [address], [address] [place] [address] Glucose [Mass/Vol] 257 mg/dL High 65-99 [facility] Comment on above: Performed By: #### M ALBU #### [facility] ([id number]) [address], [address] [place] [address] Potassium [Moles/Vol] 4.2 mmol/L Normal 3.5-5.0 [facility] Comment on above: Performed By: #### M ALBU #### [facility] ([id number]) [address], [address] [place] [address] Sodium [Moles/Vol] 136 mmol/L Normal 134-146 [facility] Comment on above: Performed By: #### M ALBU #### [facility] ([id number]) [address], [address] [place] [address] Urea nitrogen [Mass/Vol] 15 mg/dL Normal 5-27 [facility] Comment on above: Performed By: #### M ALBU #### [facility] ([id number]) [address], [address] [place] [address] CBC AND AUTO DIFFon 10-24-20 24 ABSOLUTE BASOPHIL 0.1 X10E9/L Normal 0.0-0.2 [facility] Comment on above: Performed By: #### M ALBU #### [facility] ([id number]) [address], [address] [place] [address] ABSOLUTE NEUTROPHIL 7.0 X10E9/L High 1.5-6.6 [facility] Comment on above: Performed By: #### M ALBU #### [facility] ([id number]) [address], [address] [place] [address] Basophils/100 WBC (Bld) 0.7 % Normal [facility] Comment on above: Performed By: #### M ALBU #### [facility] ([id number]) [address], [address] [place] [address] Eosinophils (Bld) [#/Vol] 0.2 10*3/uL Normal 0.0-0.4 [facility] Comment on above: Performed By: #### M ALBU #### [facility] ([id number]) [address], [address] [place] [address] Eosinophils/100 WBC (Bld) 1.7 % Normal [facility] Comment on above: Performed By: #### M ALBU #### [facility] ([id number]) [address], [address] [place] [address] Erythrocyte distribution width (RBC) [Ratio] 13.3 % Normal 11.5-15.0 [facility] Comment on above: Performed By: #### M ALBU #### [facility] ([id number]) [address], [address] [place] [address] Hematocrit (Bld) [Volume fraction] 41.9 % Normal 35-47 [facility] Comment on above: Performed By: #### M ALBU #### [facility] ([id number]) [address], [address] [place] [address] Hemoglobin (Bld) [Mass/Vol] 14.6 g/dL Normal 11.7-15.5 [facility] Comment on above: Performed By: #### M ALBU #### [facility] ([id number]) [address], [address] [place] [address] Lymphocytes (Bld) [#/Vol] 3.0 10*3/uL Normal 1.0-3.5 [facility] Comment on above: Performed By: #### M ALBU #### [facility] ([id number]) [address], [address] [place] [address] Lymphocytes/100 WBC (Bld) 28.0 % Normal [facility] Comment on above: Performed By: #### M ALBU #### [facility] ([id number]) [address] [address] [place] [address] MCH (RBC) [Entitic mass] 30.9 pg Normal 27-34 [facility] Comment on above: Performed By: #### M ALBU #### [facility] ([id number]) [address], [address] [place] [address] MCHC (RBC) [Mass/Vol] 34.9 g/dL Normal 32-36 [facility] Comment on above: Performed By: #### M ALBU #### [facility] ([id number]) [address], [address] [place] [address] MCV (RBC) [Entitic vol] 89 fL Normal 80-100 [facility] Comment on above: Performed By: #### M ALBU #### [facility] ([id number]) [address], [address] [place] [address] Monocytes (Bld) [#/Vol] 0.5 10*3/uL Normal 0-0.9 [facility] Comment on above: Performed By: #### M ALBU #### [facility] ([id number]) [address], [address] [place] [address] Monocytes/100 WBC (Bld) 4.9 % Normal [facility] Comment on above: Performed By: #### M ALBU #### [facility] ([id number]) [address], [address] [place] [address] Neutrophils/100 WBC (Bld) 64.7 % Normal [facility] Comment on above: Performed By: #### M ALBU #### [facility] ([id number]) [address], [address] [place] [address] Platelet mean volume (Bld) [Entitic vol] 9.3 fL Normal 7-12 [facility] Comment on above: Performed By: #### M ALBU #### [facility] ([id number]) [address], [address] [place] [address] Platelets (Bld) [#/Vol] 280 10*3/uL Normal 150-450 [facility] Comment on above: Performed By: #### M ALBU #### [facility] ([id number]) [address] [address] [place] [address] RBC COUNT 4.73 X10E12/L Normal 3.80-5.20 [facility] Comment on above: Performed By: #### M ALBU #### [facility] ([id number]) [address] [address] WBC (Bld) [#/Vol] 10.9 10*3/uL Normal 4.0-11.0 [facility] Comment on above: Performed By: #### M ALBU #### [facility] ([id number]) [address] [place] [address] HGB A1C (GLYCO-HGB)on 2023 Glucose [Mass/Vol] 189 mg/dL Normal [facility] Comment on above: Performed By: #### M ALBU #### [facility] ([id number]) [address] [place] [address] HbA1c (Bld) [Mass fraction] 8.2 % High 4.4-5.6 [facility] Comment on above: Result Comment: NOTE ADA Guidelines Result HgbA1c Normal : less than 5.7 % Prediabetes : 5.7 % to 6.4 % Diabetes : > 6.4 % Use with caution in patients with abnormal hemoglobin variants as the half-life of red blood cells and in vivo glycation rates are affected. Performed By: #### M ALBU #### [facility] ([id number]) [address] [place] [id number] URINE CULTUREon 06-27-2024 Bacteria identified Cx Nom (U) SPECIMEN NOTES URINE RECEIVED WITHOUT PRESERVATIVE CULTURE RESULTS 50-100,000 ORGANISMS/ML NORMAL UROGENITAL MARCUS URINE RECEIVED WITHOUT PRESERVATIVE-DELAYS IN TRANSPORT MAY AFFECT RESULTS.INTERPRET WITH CAUTION AND CLINICAL CORRELATION IS RECOMMENDED. Normal [facility] Comment on above: Performed By: #### M ALBU #### [facility] ([id number]) [address], [address] [place] [address] BASIC METABOLIC PANLon 02-28 Anion gap [Moles/Vol] 9 mmol/L Normal 5-15 [facility] Comment on above: Performed By: #### M ALBU #### [facility] ([id number]) [address] [place] [address] Calcium [Mass/Vol] 9.2 mg/dL Normal 8.5-10.5 [facility] Comment on above: Performed By: #### M ALBU #### [facility] ([id number]) [address], [address] [place] [address] Chloride [Moles/Vol] 102 mmol/L Normal 98-109 [facility] Comment on above: Performed By: #### M ALBU #### [facility] ([id number]) [address] [place] [address] CO2 [Moles/Vol] 29 mmol/L Normal 22-32 [facility] Comment on above: Performed By: #### M ALBU #### [facility] ([id number]) [address] [place] [address] Creatinine [Mass/Vol] 0.70 mg/dL Normal 0.40-1.00 [facility] Comment on above: Result Comment: METH OD TRACEABLE TO IDMS STANDARD Performed By: #### M ALBU #### [facility] ([id number]) [address] [place] [address] eGFR (CKD-EPI) NON-RACE DEPENDENT >90 Normal >59 [facility] Comment on above: Result Comment: Reported eGFR is based on the CKD-EPI 2020 equation that does not use a race coefficient. Performed By: #### M ALBU #### [facility] ([id number]) [address] [place] [address] Glucose [Mass/Vol] 240 mg/dL High 65-99 [facility] Comment on above: Performed By: #### M ALBU #### [facility] ([id number]) [address] [place] [address] Potassium [Moles/Vol] 3.8 mmol/L Normal 3.5-5.0 [facility] Comment on above: Performed By: #### M ALBU #### [facility] ([id number]) [address] [place] [address] Sodium [Moles/Vol] 140 mmol/L Normal 134-146 [facility] Comment on above: Performed By: #### M ALBU #### [facility] ([id number]) [address] [place] [address] Urea nitrogen [Mass/Vol] 10 mg/dL Normal -27 [facility] Comment on above: Performed By: #### M ALBU #### [facility] ([id number]) [address] [place] [address] HGB A1C (GLYCO-HGB)on 2023 Glucose [Mass/Vol] 329 mg/dL Normal [facility] Comment on above: Performed By: #### M ALBU #### [facility] ([id number]) [address] [place] [address] HbA1c (Bld) [Mass fraction] 13.1 % High 4.4-5.6 [facility] Comment on above: Result Comment: NOTE ADA Guidelines Result HgbA1c Normal : less than 5.7 % Prediabetes : 5.7 % to 6.4 % Diabetes : > 6.4 % Use with caution in patients with abnormal hemoglobin variants as the half-life of red blood cells and in vivo glycation rates are affected. Performed By: #### M OTONIEL #### [facility] ([id number]) [address] [facility] [place] [address] XR PELVIS 1 OR 2 VWSon 11-15 XR PELVIS 1 OR 2 VWS XR PELVIS 1 OR 2 VWS XR PELVIS 1 OR 2 VWS HISTORY: Hip pain COMPARISON: None TECHNIQUE: AP radiograph of the pelvis FINDINGS: No fracture or dislocation. There is no destructive osseous lesion. Joint space narrowing, sclerosis, and subchondral cyst formation of the bilateral hips. Osseous overgrowth of the right acetabular roof. Age-appropriate degenerative changes of the bilateral SI joints. The osseous structures are well mineralized. IMPRESSION: Degenerative changes of the bilateral hips, right greater than left. Approved by Resident Aramis Zelaya MD on 11/16/2023 2:39 PM I, Jeovany Edmonds MD have personally reviewed the image(s) and agree with and/or edited the report Finalized by Jeovany Edmonds MD on 11/16/2023 3:11 PM Normal [facility] XR SPINE CERVICAL 3 VWS OR L ESSon 11-16-2023 XR SPINE CERVICAL 3 VWS OR LESS XR SPINE CERVICAL 3 VWS OR LESS HISTORY: Neck pain TECHNIQUE: Frontal lateral and odontoid views of the cervical spine were obtained. . COMPARISON: None. FINDINGS: There is disc space narrowing and endplate osteophyte at C6-7 and to a lesser severity at C5-6. The vertebral body heights are well-maintained. The odontoid is intact. There is no evidence for an acute osseous abnormality. IMPRESSION: Disc space narrowing at C6-7 and to a lesser severity at C5-6 Finalized by Mark Alexis MD on 11/16/2023 6:47 AM Normal [facility] XR SPINE LUMBAR 2 OR 3 VWSon 11-16-2023 XR SPINE LUMBAR 2 OR 3 VWS XR SPINE LUMBAR 2 OR 3 VWS CLINICAL INFORMATION: Low back Pain TECHNIQUE/PROCEDURE: 3 views lumbar spine COMPARISON: No relevant prior studies available. FINDINGS: The vertebral body heights are maintained. Multilevel loss of intervertebral disc space height is mild to moderate most advanced at L4-5 and L5-S1. Facet arthrosis is seen throughout most advanced at L3-4, L4-5 and L5-S1. End plate spurring is noted. Degenerative changes in sacroiliac joints without sacroiliac widening. Calcifications projecting over the right upper quadrant suggest cholelithiasis. IMPRESSION: * Moderate degenerative changes as detailed above. Finalized by Tien Bocanegra MD on 11/16/2023 5:33 AM Normal [facility] CBC AND AUTO DIFFon 11-15-19 24 ABSOLUTE BASOPHIL 0.1 X10E9/L Normal 0.0-0.2 [facility] Comment on above: Performed By: #### C BCA, HA1C, CMP, 92024-0, TSHR #### [facility] ([id number]) [address], [address] [place] [address] ABSOLUTE NEUTROPHIL 4.9 X10E9/L Normal 1.5-6.6 [facility] Comment on above: Performed By: #### C BCA, HA1C, CMP, 96035-6, TSHR #### [facility] ([id number]) [address] [place] [address] Basophils/100 WBC (Bld) 0.7 % Normal [facility] Comment on above: Performed By: #### C BCA, HA1C, CMP, 97474-5, TSHR #### [facility] ([id number]) [address], [address] [place] [address] Eosinophils (Bld) [#/Vol] 0.1 10*3/uL Normal 0.0-0.4 [facility] Comment on above: Performed By: #### C BCA, HA1C, CMP, 31956-3, TSHR #### [facility] ([id number]) [address], [address] [place] [address] Eosinophils/100 WBC (Bld) 1.3 % Normal [facility] Comment on above: Performed By: #### C BCA, HA1C, CMP, 16154-3, TSHR #### [facility] ([id number]) [address] [address] [place] [address] Erythrocyte distribution width (RBC) [Ratio] 14.0 % Normal 11.5-15.0 [facility] Comment on above: Performed By: #### C BCA, HA1C, CMP, 74024-5, TSHR #### [facility] ([id number]) [address] [address] [place] [address] Hematocrit (Bld) [Volume fraction] 39.6 % Normal 35-47 [facility] Comment on above: Performed By: #### C BCA, HA1C, CMP, 66160-0, TSHR #### [facility] ([id number]) [address] [address] [place] [address] Hemoglobin (Bld) [Mass/Vol] 13.6 g/dL Normal 11.7-15.5 [facility] Comment on above: Performed By: #### C BCA, HA1C, CMP, 04962-5, TSHR #### [facility] ([id number]) [address] [address] [place] [address] Lymphocytes (Bld) [#/Vol] 3.3 10*3/uL Normal 1.0-3.5 [facility] Comment on above: Performed By: #### C BCA, HA1C, CMP, 42099-4, TSHR #### [facility] ([id number]) [address] [address] [place] [address] Lymphocytes/100 WBC (Bld) 37.4 % Normal [facility] Comment on above: Performed By: #### C BCA, HA1C, CMP, 90372-8, TSHR #### [facility] ([id number]) [address] [place] [address] MCH (RBC) [Entitic mass] 30.0 pg Normal 27-34 [facility] Comment on above: Performed By: #### C BCA, HA1C, CMP, 68822-9, TSHR #### [facility] ([id number]) [address] [place] [address] MCHC (RBC) [Mass/Vol] 34.4 g/dL Normal 32-36 [facility] Comment on above: Performed By: #### C BCA, HA1C, CMP, 55606-0, TSHR #### [facility] ([id number]) [address] [place] [address] MCV (RBC) [Entitic vol] 88 fL Normal 80-100 [facility] Comment on above: Performed By: #### C BCA, HA1C, CMP, 68216-0, TSHR #### [facility] ([id number]) [address] [place] [address] Monocytes (Bld) [#/Vol] 0.4 10*3/uL Normal 0-0.9 [facility] Comment on above: Performed By: #### C BCA, HA1C, CMP, 94731-9, TSHR #### [facility] ([id number]) [address] [place] [address] Monocytes/100 WBC (Bld) 4.7 % Normal [facility] Comment on above: Performed By: #### C BCA, HA1C, CMP, 78713-0, TSHR #### [facility] ([id number]) [address] [place] [address] Neutrophils/100 WBC (Bld) 55.9 % Normal [facility] Comment on above: Performed By: #### C BCA, HA1C, CMP, 47999-2, TSHR #### [facility] ([id number]) [address] [place] [address] Platelet mean volume (Bld) [Entitic vol] 9.1 fL Normal 7-12 [facility] Comment on above: Performed By: #### C BCA, HA1C, CMP, 70008-9, TSHR #### [facility] ([id number]) [address] [address] [place] [address] Platelets (Bld) [#/Vol] 266 10*3/uL Normal 150-450 [facility] Comment on above: Performed By: #### C BCA, HA1C, CMP, 45564-5, TSHR #### [facility] ([id number]) [address], [address] [place] [address] RBC COUNT 4.53 X10E12/L Normal 3.80-5.20 [facility] Comment on above: Performed By: #### C BCA, HA1C, CMP, 97971-8, TSHR #### [facility] ([id number]) [address], [address] [place] [address] WBC (Bld) [#/Vol] 8.7 10*3/uL Normal 4.0-11.0 [facility] Comment on above: Performed By: #### C BCA, HA1C, CMP, 86508-7, TSHR #### [facility] ([id number]) [address], [address] [place] [address] COMPREHENSIVE METABOLIC PANE Jeff 11-15-2023 Albumin [Mass/Vol] 4.1 g/dL Normal 3.2-5.3 [facility] Comment on above: Performed By: #### C BCA, HA1C, CMP, 39614-9, TSHR #### [facility] ([id number]) [address] [address] [place] [address] ALP [Catalytic activity/Vol] 81 U/L Normal 39-130 [facility] Comment on above: Performed By: #### C BCA, HA1C, CMP, 74480-4, TSHR #### [facility] ([id number]) [address], [address] [place] [address] ALT [Catalytic activity/Vol] 49 U/L High 0-31 [facility] Comment on above: Performed By: #### C BCA, HA1C, CMP, 05598-2, TSHR #### [facility] ([id number]) [address], [address] [place] [address] Anion gap [Moles/Vol] 6 mmol/L Normal 5-15 [facility] Comment on above: Performed By: #### C BCA, HA1C, CMP, 13393-3, TSHR #### [facility] ([id number]) [address], [address] [place] [address] AST [Catalytic activity/Vol] 29 U/L Normal 0-41 [facility] Comment on above: Performed By: #### C BCA, HA1C, CMP, 43450-9, TSHR #### [facility] ([id number]) [address], [address] [place] [address] Bilirubin [Mass/Vol] 0.5 mg/dL Normal 0.3-1.2 [facility] Comment on above: Performed By: #### C BCA, HA1C, CMP, 09597-1, TSHR #### [facility] ([id number]) [address], [address] [place] [address] Calcium [Mass/Vol] 9.4 mg/dL Normal 8.5-10.5 [facility] Comment on above: Performed By: #### C BCA, HA1C, CMP, 76643-4, TSHR #### [facility] ([id number]) [address], [address] [place] [address] Chloride [Moles/Vol] 104 mmol/L Normal 98-109 [facility] Comment on above: Performed By: #### C BCA, HA1C, CMP, 95526-7, TSHR #### [facility] ([id number]) [address] [address] [place] [address] CO2 [Moles/Vol] 33 mmol/L High 22-32 [facility] Comment on above: Performed By: #### C BCA, HA1C, CMP, 67110-4, TSHR #### [facility] ([id number]) [address], [facility] [address] [place] [address] Creatinine [Mass/Vol] 0.68 mg/dL Normal 0.40-1.00 [facility] Comment on above: Result Comment: METH OD TRACEABLE TO IDMS STANDARD Performed By: #### C BCA, HA1C, CMP, 25109-7, TSHR #### [facility] ([id number]) [address], [facility] [address] [place] [address] eGFR (CKD-EPI) NON-RACE DEPENDENT >90 Normal >59 [facility] Comment on above: Result Comment: Reported eGFR is based on the CKD-EPI 2020 equation that does not use a race coefficient. Performed By: #### C BCA, HA1C, CMP, 44231-3, TSHR #### [facility] ([id number]) [address] [address] [place] [address] Glucose [Mass/Vol] 183 mg/dL High 65-99 [facility] Comment on above: Performed By: #### C BCA, HA1C, CMP, 27745-6, TSHR #### [facility] ([id number]) [address], [address] [place] [address] Potassium [Moles/Vol] 4.1 mmol/L Normal 3.5-5.0 [facility] Comment on above: Performed By: #### C BCA, HA1C, CMP, 18748-0, TSHR #### [facility] ([id number]) [address] [address] [place] [address] Protein [Mass/Vol] 6.7 g/dL Normal 6.0-8.0 [facility] Comment on above: Performed By: #### C BCA, HA1C, CMP, 46440-5, TSHR #### [facility] ([id number]) [address], [address] [place] [address] Sodium [Moles/Vol] 143 mmol/L Normal 134-146 [facility] Comment on above: Performed By: #### C BCA, HA1C, CMP, 55982-4, TSHR #### [facility] ([id number]) [address], [address] [place] [address] Urea nitrogen [Mass/Vol] 13 mg/dL Normal 5-27 [facility] Comment on above: Performed By: #### C BCA, HA1C, CMP, 13293-4, TSHR #### [facility] ([id number]) [address], [facility] [address] [place] [address] HGB A1C (GLYCO-HGB)on 2023 Glucose [Mass/Vol] 280 mg/dL Normal [facility] Comment on above: Performed By: #### C BCA, HA1C, CMP, 88120-7, TSHR #### [facility] ([id number]) [address], [facility] [address] [place] [address] HbA1c (Bld) [Mass fraction] 11.4 % High 4.4-5.6 [facility] Comment on above: Result Comment: NOTE ADA Guidelines Result HgbA1c Normal : less than 5.7 % Prediabetes : 5.7 % to 6.4 % Diabetes : > 6.4 % Use with caution in patients with abnormal hemoglobin variants as the half-life of red blood cells and in vivo glycation rates are affected. Performed By: #### C BCA, HA1C, CMP, 90972-2, TSHR #### [facility] ([id number]) [address], [address] [place] [address] Lipid 1996 panelon 4 Cholesterol [Mass/Vol] 160 mg/dL Normal 150-200 [facility] Comment on above: Performed By: #### Joshua PAREDES, HAAndrew, CMP, 69304-2, TSHR #### [facility] ([id number]) [address], [address] [place] [address] Cholesterol in HDL [Mass/Vol] 52 mg/dL Normal >39 [facility] Comment on above: Result Comment: HDL <40 mg/dL - High Risk HDL > or = 40mg/dL- Desirable HDL >60 mg/dL - Negative Risk Performed By: #### C LENA, HA1C, CMP, 95356-0, TSHR #### [facility] ([id number]) [address], [address] [place] [address] Cholesterol in LDL [Mass/Vol] 80 mg/dL Normal <130 [facility] Comment on above: Result Comment: LDL <100 mg/dL - Desirable LDL >160 mg/dL - High Risk Performed By: #### C LENA, HA1C, CMP, 15856-3, TSHR #### [facility] ([id number]) [address], [address] [place] [address] Cholesterol in VLDL [Mass/Vol] 28 mg/dL Normal 0-30 [facility] Comment on above: Performed By: ###Ankita Lewis BCA, HA1C, CMP, 39379-4, TSHR #### [facility] ([id number]) [address], [address] [place] [address] CHOLESTEROL:HDL 3.1 Normal 1.0-5.0 [facility] Comment on above: Performed By: #### C BCA, HA1C, CMP, 55535-5, TSHR #### [facility] ([id number]) [address], [address] [address] Triglyceride [Mass/Vol] 141 mg/dL Normal 27-150 [facility] Comment on above: Performed By: #### C BCA, HA1C, CMP, 03779-7, TSHR #### [facility] ([id number]) [address], [address] [address] MICROALBUMIN - ALBUMIN:CREAT ININE URINE RATIOon 11-15-2023 ALB/CREAT RATIO 32.6 mg/g creat High 0.0-30.0 [facility] Comment on above: Performed By: #### M ALBU #### [facility] ([id number]) [address] [address] Albumin DL <= 20 mg/L (U) [Mass/Vol] 1.8 mg/dL Normal 0.0-1.9 [facility] Comment on above: Performed By: #### M ALBU #### [facility] ([id number]) [address] [facility], [address] [place] [address] URINE CREAT 55.19 mg/dL Normal [facility] Comment on above: Performed By: #### M ALBU #### [facility] ([id number]) [address] [facility], [address] [place] [address] TSH WITH REFLEXon 11-15-2023 TSH 1.90 uIU/mL Normal 0.49-4.67 [facility] Comment on above: Performed By: #### C BCA, HA1C, CMP, 83005-8, TSHR #### [facility] ([id number]) [address] [facility], [address] [place] [address] URINALYSISon 11-15-2023 Bilirubin Ql (U) Negative Normal NEG [facility] Comment on above: Performed By: #### M ALBU #### [facility] ([id number]) [address], [address] [place] [address] BLOOD/HGB Negative Normal NEG [facility] Comment on above: Performed By: #### M ALBU #### [facility] ([id number]) [address], [address] [place] [address] Color (U) YELLOW Normal YELLOW [facility] Comment on above: Performed By: #### M ALBU #### [facility] ([id number]) [address], [address] [place] [address] Glucose Ql (U) Negative Normal NEG [facility] Comment on above: Performed By: #### M ALBU #### [facility] ([id number]) [address], [address] [place] [address] Ketones Ql (U) Negative Normal NEG [facility] Comment on above: Performed By: #### M ALBU #### [facility] ([id number]) [address], [address] [place] [address] Leukocyte esterase Test strip Ql (U) Negative Normal NEG [facility] Comment on above: Performed By: #### M ALBU #### [facility] ([id number]) [address], [address] [place] [address] Nitrite Ql (U) Negative Normal NEG [facility] Comment on above: Performed By: #### M ALBU #### [facility] ([id number]) [address], [address] [place] [address] pH (U) 6.0 [pH] Normal 5.0-8.5 [facility] Comment on above: Performed By: #### M ALBU #### [facility] ([id number]) [address], [address] [place] [address] Protein Ql (U) Negative Normal NEG [facility] Comment on above: Performed By: #### M ALBU #### [facility] ([id number]) [address], [address] [place] [address] Specific gravity (U) [Rel density] 1.015 Normal 1.003-1.035 [facility] Comment on above: Performed By: #### M ALBU #### [facility] ([id number]) [address], [address] [place] [address] TURBIDITY CLEAR Normal CLEAR [facility] Comment on above: Performed By: #### M ALBU #### [facility] ([id number]) [address], [address] [place] [address] Urobilinogen (U) [Mass/Vol] mg/dL Normal <1.1 [facility] Comment on above: Performed By: #### M ALBU #### [facility] ([id number]) [address], [address] [place] [address] XR ANKLE RT MIN 3 VWSon 11-02 XR ANKLE RT MIN 3 VWS XR ANKLE RT MIN 3 VWS XR ANKLE RT MIN 3 VWS 11/15/2023 12:16 PM INDICATION: Chronic pain of right ankle COMPARISON: None. TECHNIQUE: AP, lateral, oblique views obtained. FINDINGS: Bones: No acute fracture. Small plantar calcaneal enthesophyte. Joints: No malalignment or dislocation. Ankle degenerative changes. Soft tissues: No soft tissue swelling or mass. IMPRESSION: * No acute fracture. Approved by Resident: Ender Kern MD on 11/15/2023 1:13 PM Frank Malloy MD have personally reviewed the image(s) and agree with and/or edited the report Finalized by Frank Myers MD on 11/15/2023 1:51 PM Normal [facility] XR FOOT RT MIN 3 VWSon 11-14 XR FOOT RT MIN 3 VWS XR FOOT RT MIN 3 VWS HISTORY: Chronic pain of right ankle COMPARISON: None. TECHNIQUE: AP, oblique and lateral views of the right foot were obtained. FINDINGS: No evidence of acute fracture or traumatic malalignment. Degenerative changes first metatarsophalangeal and interphalangeal joints. Plantar calcaneal enthesophytes. 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 Approved by Resident Josias Osborn MD on 11/15/2023 1:41 PM I, Jeovany Edmonds MD have personally reviewed the image(s) and agree with and/or edited the report Finalized by Jeovany Edmonds MD on 11/15/2023 3:25 PM Normal [facility] XR SPINE THORACIC 3 VWSon XR SPINE THORACIC 3 VWS XR SPINE THORACIC 3 VWS XR SPINE THORACIC 3 VWS History: Pain Impression: * No acute findings. * No fracture or destructive lesion. * Diffuse disc disease and facet arthritis. . * Consider MRI if you suspect occult process Finalized by Rufino Ordaz MD on 11/15/2023 4:46 PM Normal [facility] B. PERTUSSIS AB IGA/IGG/IGMo n 01-17-2023 B pertussis IgA Ab 1.7 index Invalid Interpretation Code 0.0-0.9 [facility] Comment on above: Result Comment: Nicol austin Requested Flag Negative <1.0 Borderline 1.0 - 1.1 Positive >1.1 Performed By: #### C MREP #### [facility] [address] [place] [address] Dr. Stephany Nails pertussis IgG Ab 1.33 index Invalid Interpretation Code 0.00-0.94 [facility] Comment on above: Result Comment: Nicol austin Requested Flag Negative <0.95 Equivocal 0.95 - 1.04 Positive >1.04 Performed By: #### C MREP #### [facility] [address] [place] [address] Dr. Stephany Nails pertussis IgM Ab <1.0 Normal 0.0-0.9 [facility] Comment on above: Result Comment: Nega tive <1.0 Borderline 1.0 - 1.1 Positive >1.1 Performed By: #### C MREP #### [facility] [address] [address] [address] Stephany Williamson LEGIONELLA UR AGon 3 L. pnueimophila Serogp 1 Ur Ag Negative Normal Negative [facility] Comment on above: Result Comment: Pres umptive negative for L. pneumophila serogroup 1 antigen in urine, suggesting no recent or current infection. Legionnaires' disease cannot be ruled out since other serogroups and species may also cause disease. Performed By: #### C MREP #### [facility] [address] [place] [address] Dr. Stephany Williamson CBC AUTO DIFFon 01-13-2023 BASO # 0.0 103/ul Normal 0.0-0.1 [facility] Comment on above: Performed By: #### C MREP #### [facility] [address] [place] [address] Dr. Stephany Williamson Basophils/100 WBC (Bld) 0.1 % Critically low 0.2-2.0 [facility] Comment on above: Performed By: #### C MREP #### [facility] [address] [place] [address] Dr. Stephany Williamson EO # 0.0 103/ul Normal 0.0-0.7 [facility] Comment on above: Performed By: #### C MREP #### [facility] [address] [place] [address] Dr. Stephany Williamson Eosinophils/100 WBC (Bld) 0.0 % Critically low 0.9-7.0 [facility] Comment on above: Performed By: #### C MREP #### [facility] [address] [place] [address] Dr. Stephany Williamson Erythrocyte distribution width (RBC) [Ratio] 13.4 % Normal 11.0-15.0 [facility] Comment on above: Performed By: #### C MREP #### [facility] [address] [place] [address] Dr. Stephany Williamson Hematocrit (Bld) [Volume fraction] 39.8 % Normal 36.0-48.0 [facility] Comment on above: Performed By: #### C MREP #### [facility] [address] [place] [address] Dr. Stephany Williamson Hemoglobin (Bld) [Mass/Vol] 13.4 g/dL Normal 12.0-16.0 [facility] Comment on above: Performed By: #### C MREP #### [facility] [address] [place] [address] Dr. Stephany Williamson IG # 0.33 10e3/ul Critically high 0.00-0.03 [facility] Comment on above: Performed By: #### C MREP #### [facility] [address] [place] [address] Dr. Stephany Williamson IG % 2.6 % Critically high 0.0-0.5 [facility] Comment on above: Performed By: #### C MREP #### [facility] [address] [place] [address] Dr. Stephany Williamson LYMPH # 1.3 103/ul Normal 1.2-3.8 [facility] Comment on above: Performed By: #### C MREP #### [facility] [address] [place] [address] Dr. Stephany Williamson Lymphocytes/100 WBC (Bld) 10.2 % Critically low 20.5-60.0 [facility] Comment on above: Performed By: #### C MREP #### [facility] [address] [place] [address] Dr. Stephany Williamson MANUAL DIFF REQ NO Normal [facility] Comment on above: Performed By: #### C MREP #### [facility] [address] [place] [address] Dr. Stephany Williamson MCH (RBC) [Entitic mass] 29.8 pg Normal 26.7-34.0 [facility] Comment on above: Performed By: #### C MREP #### [facility] [address] [place] [address] Dr. Stephany Williamson MCHC (RBC) [Mass/Vol] 33.7 g/dL Normal 29.9-35.2 [facility] Comment on above: Performed By: #### C MREP #### [facility] [address] [address] [address] Stephany Williamson MCV (RBC) [Entitic vol] 88.6 fL Normal 81.0-99.0 [facility] Comment on above: Performed By: #### C MREP #### [facility] [address] [address] [address] Stephany Williamson MONO # 0.1 103/ul Critically low 0.3-0.8 [facility] Comment on above: Performed By: #### C MREP #### [facility] [address] [place] [address] Dr. Stephany Williamson Monocytes/100 WBC (Bld) 1.1 % Critically low 1.7-12.0 [facility] Comment on above: Performed By: #### C MREP #### [facility] [address] [place] [address] Dr. Stephany Williamson NEUT # 11.0 103/ul Critically high 1.4-6.5 [facility] Comment on above: Performed By: #### C MREP #### [facility] [address] [place] [address] Dr. Stephany Williamson Neutrophils/100 WBC (Bld) 86.0 % Critically high 43.0-75.0 [facility] Comment on above: Performed By: #### C MREP #### [facility] [address] [place] [address] Dr. Stephany Williamson Platelet mean volume (Bld) [Entitic vol] 11.2 fL Normal 9.5-13.5 [facility] Comment on above: Performed By: #### C MREP #### [facility] [address] [place] [address] Dr. Stephany Williamson PLT 268 103/ul Normal 150-450 [facility] Comment on above: Performed By: #### C MREP #### [facility] [address] [place] [address] Dr. Stephany Williamson RBC 4.49 106/ul Normal 4.20-5.40 [facility] Comment on above: Performed By: #### C MREP #### [facility] [address] [place], [place] [address] Dr. Stephany Williamson WBC 12.8 103/ul Critically high 4.0-11.0 [facility] Comment on above: Performed By: #### C MREP #### [facility] [address] [place], [place] [address] Dr. Stephany Williamson ECHOCARDIO M/2D COMPLETEon 0 01-13-2023 ECHOCARDIO M/2D COMPLETE Patient: GIORGIO CARSON Exam Date: 01/13/2023 : 1960 Gender:F Ordering : ZE MOLINA Admission #: [id number] Family : DR SHARAN RAJAN . Order #: [id number] CLICK HERE TO VIEW EXAM ECHOCARDIOGRAM REPORT PROCEDURE: CARDIO PULMONARY ECHOCARDIO M/2D COMP INDICATIONS: Shortness of breath, paalpitations COMPARISON: None. DESCRIPTION: COMPLETE ECHOCARDIOGRAM Real-time transthoracic echocardiography with 2D, M-mode, spectral and color flow Doppler performed. QUALITY: Technical quality was good. LEFT VENTRICLE: Normal chamber size. Proximal septal hypertrophy (sigmoid septum). Normal systolic function. LV EF: Normal left ventricular ejection fraction, (>55%). DIASTOLIC: Normal diastolic function. ATRIAL SEPTUM: LEFT ATRIUM: Normal chamber size. RIGHT ATRIUM: Normal chamber size. RIGHT VENTRICLE: Normal chamber size. Normal right ventricular systolic function. TRICUSPID VALVE: Normal mobility and thickness. No stenosis with trivial regurgitation. No evidence of pulmonary hypertension. RVSP 27 mmHg MITRAL VALVE: Normal mobility and thickness. No evidence of mitral valve stenosis. There is no mitral annular calcification. Trivial mitral regurgitation. AORTIC VALVE: Normal trileaflet appearance. No visible sclerosis. Normal leaflet mobility. No evidence of aortic valve stenosis. Mild aortic regurgitation. AORTIC ROOT: Normal diameter and appearance. PULMONIC VALVE: Normal thickness and mobility. No stenosis. Trivial regurgitation. PERICARDIUM: No evidence of pericardial effusion. IVC: Collapses with inspirations. PLEURA: CONCLUSION: 1. Normal ventricular systolic function. LVEF is 55 to 60%. 2. Normal diastolic function. 3. Mild aortic regurgitation. 4. Normal right-sided pressures. 5. No pericardial effusion. Adult Echocardiography Procedure Report Left Ventricle LVEDD (3.7 - 5.6 cm): 4.29 cm LVESD (2.2 - 4.0 cm): 3.04 cm LVIVS thickness (0.6 - 1.2 cm): 1.15 cm LVPW thickness (0.5 - 1.0 cm): 0.85 cm e': 0.10 m/s E - e': 8.41 LVOT Max Gradient: 5.14 mm[Hg] Peak Velocity (LVOT): 1.13 m/s LVOT Diameter 2.08 cm Left Ventricular Ejection Fraction: 55-60 % Left Atrium LA Volume Index (2D A2C): 51.02 ml, 51.02 ml Left Atrium Systolic Dimension: 3.35 cm Mitral Valve MV E to A Ratio: 0.71 Mitral Valve A-Wave Peak Velocity: 1.14 m/s Mitral Valve E-Wave Peak Velocity: 0.82 m/s Right Ventricle Aorta AO Root Diam: 3.36 cm Ascending Ao Diam: 2.55 cm Aortic Valve AoV Area (Peak Alexx): 2.87 cm2, 2.87 cm2 Peak Velocity(Antegrade Flow): 1.34 m/s Peak Gradient(Antegrade Flow): 7.17 mm[Hg] Mean Velocity(Antegrade Flow): 0.89 m/s Mean Gradient(Antegrade Flow): 3.69 mm[Hg] Velocity Time Integral: 24.88 cm Tricuspid Valve Peak Velocity (Regurgitant Flow): 2.44 m/s Peak Velocity: 0.53 m/s Pulmonic Valve Mean Gradient: 3.09 mm[Hg], 3.01 mm[Hg], 3.33 mm[Hg], 2.19 mm[Hg] Mean Velocity: 0.82 m/s, 0.81 m/s, 0.84 m/s, 0.69 m/s Peak Velocity: 1.21 m/s, 1.16 m/s, 1.33 m/s, 0.98 m/s, 1.21 m/s Peak Gradient: 5.85 mm[Hg], 5.42 mm[Hg], 7.03 mm[Hg], 3.81 mm[Hg], 5.85 mm[Hg] Right Atrium Dictated by: Sharath Beck M.D. on 01/13/2023 at 19:09 Approved by: Sharath Beck M.D. on 01/13/2023 at 19:12 Normal [facility] GLYCOHEMOGLOBIN A1Con 2022 ADA RECOMMENDATION SEE BELOW Normal [facility] Comment on above: Result Comment: ADA RECOMMENDED LIMIT 4.0 - 6.0 ADA THERAPEUTIC TARGET < 7.0 ACTION SUGGESTED > 7.0 Performed By: #### A 1C #### [facility] [address] [address] [address] Stephany Williamson Glucose [Mass/Vol] 289 mg/dL Normal [facility] Comment on above: Performed By: #### A 1C #### [facility] [address] [address] [address] Stephany Williamson HbA1c (Bld) [Mass fraction] 11.7 % Critically high 4.5-6.2 [facility] Comment on above: Performed By: #### A 1C #### [facility] [address] [place] [address] Dr. Stephany Williamson LACTATE/LACTIC ACIDon 2022 Lactate [Moles/Vol] 0.8 mmol/L Normal 0.4-2.0 [facility] Comment on above: Performed By: #### C MREP #### [facility] [address] [address] [address] Stephany Williamson POINT OF CARE GLUCOSEon 01-02 Glucose [Mass/Vol] 342 mg/dL Critically high -106 [facility] Comment on above: Performed By: #### C MP, HSTROPN, BNP #### [facility] [address] [address] [address] Stephany Williamson Glucose [Mass/Vol] 375 mg/dL Critically high 74-106 [facility] Comment on above: Performed By: #### P OCGLUC #### [facility] [address] [place] [address] Dr. Stephany Williamson Glucose [Mass/Vol] 407 mg/dL Critically high -106 [facility] Comment on above: Performed By: #### C BC #### [facility] [address] [address] [address] Stephany Williamson Glucose [Mass/Vol] 463 mg/dL Critically high 74-106 [facility] Comment on above: Performed By: #### C MP, HSTROPN, BNP #### [facility] [address] [place] [address] Dr. Stephany Williamson PROF CHEM 8 (BAS METB)on Anion gap [Moles/Vol] 17.9 mmol/L Normal [facility] Comment on above: Performed By: #### C MREP #### [facility] [address] [place] [address] Dr. Stephany Williamson Calcium [Mass/Vol] 8.0 mg/dL Critically low 8.5-10.1 [facility] Comment on above: Performed By: #### C MREP #### [facility] [address] [place] [address] Dr. Stephany Williamson Chloride [Moles/Vol] 101 mmol/L Normal 98-107 [facility] Comment on above: Performed By: #### C MREP #### [facility] [address] [place] [address] Dr. Stephany Williamson CO2 [Moles/Vol] 19.1 mmol/L Critically low 21.0-32.0 [facility] Comment on above: Performed By: #### C MREP #### [facility] [address] [place] [address] Dr. Stephany Williamson Creatinine [Mass/Vol] 1.12 mg/dL Critically high 0.55-1.02 [facility] Comment on above: Performed By: #### C MREP #### [facility] [address] [place] [address] Dr. Stephany Williamson EGFR-AF PORTUGUESE 60 mL/min/1.73m2 Normal >=60 [facility] Comment on above: Performed By: #### C MREP #### [facility] [address] [place] [address] Dr. Stephany Williamson EGFR-NON AF PORTUGUESE 50 mL/min/1.73m2 Critically low >=60 [facility] Comment on above: Performed By: #### C MREP #### [facility] [address] [address] [address] Stephany Williamson Glucose [Mass/Vol] 484 mg/dL Critically high 74-106 [facility] Comment on above: Performed By: #### C MREP #### [facility] [address] [address] [address] Stephany Williamson Potassium [Moles/Vol] 4.0 mmol/L Normal 3.5-5.1 [facility] Comment on above: Performed By: #### C MREP #### [facility] [address] [place] [address] Dr. Stephany Williamson Sodium [Moles/Vol] 134 mmol/L Critically low 136-145 Th [facility] Comment on above: Performed By: #### C MREP #### [facility] [address] [place] [address] Dr. Stephany Williamson Urea nitrogen [Mass/Vol] 21.0 mg/dL Critically high 7.0-18.0 [facility] Comment on above: Performed By: #### C MREP #### [facility] [address] [place] [address] Dr. Stephany Williamson Urea nitrogen/Creatinine [Mass ratio] 18.8 mg/mg Normal [facility] Comment on above: Performed By: #### C MREP #### [facility] [address] [place] [address] Dr. Stephany Williamson TROPONIN, HIGH SENSITIVITYon 01-13-2023 HSTROP 14.7 pg/mL Normal 4.0-51.3 [facility] Comment on above: Result Comment: CUT- OFF POINTS HAVE BEEN ESTABLISHED BASED ON THE FOURTH UNIVERSAL DEFINITIONS OF MYOCARDIAL INFARCTION. THE UPPER REFERENCE LIMIT (URL) OF TROPONIN, DEFINED THE 99TH PERCENTILE OF cTnI DISTRIBUTION IN A REFERENCE POPULATION, HAS BEEN CONFIRMED THE DECISION THRESHOLD FOR [place] DIAGNOSIS. Performed By: #### P OCGLUC #### [facility] [address] [place] [address] Dr. Stephany Williamson AMYLASEon 01-12-2023 Amylase [Catalytic activity/Vol] 24 U/L Critically low 25-115 [facility] Comment on above: Performed By: #### L IPA, SRAVAN #### [facility] [address] [place] [address] Dr. Stephany Williamson BNPon 01-12-2023 Natriuretic peptide B (Bld) [Mass/Vol] 148.0 pg/mL Normal <=900.0 [facility] Comment on above: Performed By: #### I MMUNGF #### [facility] [address] [place] [address] Dr. Stephany Williamson CARDIAC ANDREY ADMITon 023 CK [Catalytic activity/Vol] 50 U/L Normal 26-192 [facility] Comment on above: Performed By: #### I MMUNGF #### [facility] [address] [place] [address] Dr. Stephany Williamson CK.MB [Mass/Vol] 1.60 ng/mL Normal <=3.60 [facility] Comment on above: Performed By: #### I MMUNGF #### [facility] [address] [place] [address] Dr. Stephany Williamson HSTROP 16.8 pg/mL Normal 4.0-51.3 [facility] Comment on above: Result Comment: CUT- OFF POINTS HAVE BEEN ESTABLISHED BASED ON THE FOURTH UNIVERSAL DEFINITIONS OF MYOCARDIAL INFARCTION. THE UPPER REFERENCE LIMIT (URL) OF TROPONIN, DEFINED THE 99TH PERCENTILE OF cTnI DISTRIBUTION IN A REFERENCE POPULATION, HAS BEEN CONFIRMED THE DECISION THRESHOLD FOR [place] DIAGNOSIS. Performed By: #### I MMUNGF #### [facility] [address] [place] [address] Dr. Stephany Williamson KIANNA 43 ng/mL Normal 9-82 [facility] Comment on above: Performed By: #### I MMUNGF #### [facility] [address] [place] [address] Dr. Stephany Williamson CBC AUTO DIFFon 01-12-2023 BASO # 0.1 103/ul Normal 0.0-0.1 [facility] Comment on above: Performed By: #### C BC #### [facility] [address] [place] [address] Dr. Stephany Williamson Basophils/100 WBC (Bld) 0.5 % Normal 0.2-2.0 [facility] Comment on above: Performed By: #### C BC #### [facility] [address] [address] [address] Stephany Williamson EO # 0.0 103/ul Normal 0.0-0.7 [facility] Comment on above: Performed By: #### C BC #### [facility] [address] [address] [address] Stephany Williamson Eosinophils/100 WBC (Bld) 0.3 % Critically low 0.9-7.0 [facility] Comment on above: Performed By: #### C BC #### [facility] [address] [place] [address] Dr. Stephany Williamson Erythrocyte distribution width (RBC) [Ratio] 13.3 % Normal 11.0-15.0 [facility] Comment on above: Performed By: #### C BC #### [facility] [address] [place] [address] Dr. Stephany Williamson Hematocrit (Bld) [Volume fraction] 47.9 % Normal 36.0-48.0 [facility] Comment on above: Performed By: #### C BC #### [facility] [address] [place] [address] Dr. Stephany Williamson Hemoglobin (Bld) [Mass/Vol] 16.4 g/dL Critically high 12.0-16.0 [facility] Comment on above: Performed By: #### C BC #### [facility] [address] [place] [address] Dr. Stephany Williamson IG # 0.07 10e3/ul Critically high 0.00-0.03 [facility] Comment on above: Performed By: #### C BC #### [facility] [address] [address] [address] Stephany Williamson IG % 0.5 % Normal 0.0-0.5 [facility] Comment on above: Performed By: #### C BC #### [facility] [address] [place] [address] Dr. Stephany Williamson LYMPH # 4.7 103/ul Critically high 1.2-3.8 [facility] Comment on above: Performed By: #### C BC #### [facility] [address] [place] [address] Dr. Stephany Williamson Lymphocytes/100 WBC (Bld) 31.0 % Normal 20.5-60.0 [facility] Comment on above: Performed By: #### C BC #### [facility] [address] [place] [address] Dr. Stephany Williamson MANUAL DIFF REQ NO Normal [facility] Comment on above: Performed By: #### C BC #### [facility] [address] [place] [address] Dr. Stephany Williamson MCH (RBC) [Entitic mass] 29.4 pg Normal 26.7-34.0 [facility] Comment on above: Performed By: #### C BC #### [facility] [address] [place] [address] Dr. Stephany Williamson MCHC (RBC) [Mass/Vol] 34.2 g/dL Normal 29.9-35.2 [facility] Comment on above: Performed By: #### C BC #### [facility] [address] [place] [address] Dr. Stephany Williamson MCV (RBC) [Entitic vol] 86.0 fL Normal 81.0-99.0 [facility] Comment on above: Performed By: #### C BC #### [facility] [address] [place] [address] Dr. Stephany Williamson MONO # 0.7 103/ul Normal 0.3-0.8 [facility] Comment on above: Performed By: #### C BC #### [facility] [address] [place] [address] Dr. Stephany Williamson Monocytes/100 WBC (Bld) 4.6 % Normal 1.7-12.0 [facility] Comment on above: Performed By: #### C BC #### [facility] [address] [place] [address] Dr. Stephany Williamson NEUT # 9.6 103/ul Critically high 1.4-6.5 [facility] Comment on above: Performed By: #### C BC #### [facility] [address] [address] [address] Stephany Williamson Neutrophils/100 WBC (Bld) 63.1 % Normal 43.0-75.0 [facility] Comment on above: Performed By: #### C BC #### [facility] [address] [address] [address] Stephany Williamson Platelet mean volume (Bld) [Entitic vol] 11.0 fL Normal 9.5-13.5 [facility] Comment on above: Performed By: #### C BC #### [facility] [address] [place] [address] Dr. Stephany Williamson PLT 404 103/ul Normal 150-450 [facility] Comment on above: Performed By: #### C BC #### [facility] [address] [place] [address] Dr. Stephany Williamson RBC 5.57 106/ul Critically high 4.20-5.40 [facility] Comment on above: Performed By: #### C BC #### [facility] [address] [place] [address] Dr. Stephany Williamson WBC 15.2 103/ul Critically high 4.0-11.0 [facility] Comment on above: Performed By: #### C BC #### [facility] [address] [place] [address] ABD/PELVIS WO CONon 01-12 CT ABD/PELVIS WO CON EXAMINATION: CT ABD/PELVIS WO CON, 01/12/2023 6:35 PM EDT HISTORY: SHORTNESS OF BREATH COMPARISON: None. TECHNIQUE: CT scan of the abdomen and pelvis was performed without IV contrast. CT dose reduction technique was used, including Automated Exposure Control. FINDINGS: LOWER CHEST: The visualized lungs are clear. There is a small hiatal hernia. LIVER: Unremarkable. GALLBLADDER AND BILIARY SYSTEM: There is a large partially calcified gallstone within the gallbladder measuring 3.2 x 1.9 cm. No gallbladder wall thickening. No intra or extrahepatic biliary ductal dilatation. SPLEEN: Unremarkable. PANCREAS: Mild diffuse atrophy of the pancreas. No pancreatic ductal dilatation. ADRENAL GLANDS: Unremarkable. KIDNEYS AND URETERS: Contrast is noted in the renal collecting systems which limits evaluation for renal calculi. There is no hydronephrosis. No perinephric stranding. BLADDER: Unremarkable. GASTROINTESTINAL TRACT: No evidence of bowel obstruction or colitis. Moderate amount of stool in the colon. There is sigmoid diverticulosis without evidence of diverticulitis. The appendix is not clearly identified. VASCULATURE: The abdominal aorta is normal in caliber. RETROPERITONEUM: No lymphadenopathy. PERITONEUM/MESENTERY: No abdominal ascites. No free air. PELVIS: Status post hysterectomy. No pelvic ascites or lymphadenopathy. BODY WALL: Unremarkable. BONES: Severe loss of disc height at L5-S1. IMPRESSION: 1. Cholelithiasis. No biliary ductal dilatation. 2. Small hiatal hernia. 3. Constipation. Sigmoid diverticulosis without evidence of diverticulitis. Electronically authenticated by: DARRELL MYERS Date: 2023-01-12 19:54 Normal [facility] CTA CHEST WO W CONon 023 CTA CHEST WO W CON EXAMINATION: CTA MARIA ESTHER ST WO W CON HISTORY: SHORTNESS OF BREATH COMPARISON: None. TECHNIQUE: CT angiography of the pulmonary arteries following the administration of intravenous contrast. Coronal and sagittal MIP (maximum intensity projection) images were performed. Dose reduction techniques were achieved by using automated exposure control and/or adjustment of mA and/or kV according to patient size and/or use of iterative reconstruction technique. FINDINGS: Lungs: No consolidation, mass, or effusion. Airways: Normal. Mediastinum: No adenopathy. Aorta: No aneurysm. Cardiac: Normal size. No pericardial effusion. Pulmonary vasculature: Diagnostic opacification of pulmonary arteries without evidence of pulmonary embolus. Normal morphology. Bones: No acute bony abnormality. Axilla: No adenopathy. Thyroid gland: No abnormality demonstrated on provided imaging. Soft tissues: Unremarkable. Upper abdomen: Partially visualized large gallbladder stone adjacent to the gallbladder neck. Additional findings: None. IMPRESSION: No evidence of pulmonary embolus or acute intrathoracic abnormality. Partially visualized large gallbladder stone adjacent to the gallbladder neck. Electronically authenticated by: DEREK HOUSER Date: 2023-01-12 16:02 Normal [facility] CULTURE BLOODon 01-12-2023 Microscopic examination of blood, culture Culture Observations: NO GROWTH AT 5 DAYS. Normal [facility] Comment on above: Performed By: #### C BC #### [facility] [address] [place] [address] Dr. Stephany Williamson Microscopic examination of blood, culture Culture Observations: NO GROWTH AT 5 DAYS. Normal [facility] Comment on above: Performed By: #### C BC #### [facility] [address] [place] [address] Dr. Stephany Williamson ER URINE PROFILEon 3 Bilirubin Ql (U) Negative Normal NEGATIVE [facility] Comment on above: Performed By: #### C MP, HSTROPN, BNP #### [facility] [address] [place] [address] Dr. Stephany Williamson Clarity (U) CLEAR Normal CLEAR [facility] Comment on above: Performed By: #### C MP, HSTROPN, BNP #### [facility] [address] [place] [address] Dr. Stephany Williamson Color (U) LT. YELLOW Normal YELLOW [facility] Comment on above: Performed By: #### C MP, HSTROPN, BNP #### [facility] [address] [place] [address] Dr. Stephany HOANG A micrscopic examination will be performed if indicated. Normal [facility] Comment on above: Performed By: #### C MP, HSTROPN, BNP #### [facility] [address] [place] [address] Dr. Stephany Williamson Glucose Ql (U) >1000 Abnormal NEGATIVE [facility] Comment on above: Performed By: #### C MP, HSTROPN, BNP #### [facility] [address] [place] [address] Dr. Stephany Williamson Hemoglobin Ql (U) Negative Normal NEGATIVE [facility] Comment on above: Performed By: #### C MP, HSTROPN, BNP #### [facility] [address] [place] [address] Dr. Stephany Williamson Ketones Ql (U) 15 mg/dl Abnormal NEGATIVE [facility] Comment on above: Performed By: #### C MP, HSTROPN, BNP #### [facility] [address] [place] [address] Dr. Stephany Williamson LEUKOCYTES Negative Normal NEGATIVE [facility] Comment on above: Performed By: #### C MP, HSTROPN, BNP #### [facility] [address] [place] [address] Dr. Stephany Williamson Nitrite Ql (U) Negative Normal NEGATIVE [facility] Comment on above: Performed By: #### C MP, HSTROPN, BNP #### [facility] [address] [place] [address] Dr. Stephany Willaimson pH (U) 5.0 [pH] Normal 5-9 [facility] Comment on above: Performed By: #### C MP, HSTROPN, BNP #### [facility] [address] [place] [address] Dr. Stephany Williamson SPEC GRAVITY 1.010 Normal 1.005-<=1.02 5 [facility] Comment on above: Performed By: #### C MP, HSTROPN, BNP #### [facility] [address] [place] [address] Dr. Stephany Williamson UA PROTEIN Negative Normal NEGATIVE/ TRACE [facility] Comment on above: Performed By: #### C MP, HSTROPN, BNP #### [facility] [address] [place] [address] Dr. Stephany Williamson UR MICRO IND NOT INDICATED Normal [facility] Comment on above: Performed By: #### C MP, HSTROPN, BNP #### [facility] [address] [place] [address] Dr. Stephany Williamson Urobilinogen Qn (U) 0.2 {Rachel'U}/dL Normal 0.2 - 1. 0 [facility] Comment on above: Performed By: #### C MP, HSTROPN, BNP #### [facility] [address] [place] [address] Dr. Stephany Williamson LACTATE/LACTIC ACIDon 2022 Lactate [Moles/Vol] 4.8 mmol/L Critically high 0.4-2.0 [facility] Comment on above: Performed By: #### P OCGLUC #### [facility] [address] [address] [address] Stephany Williamson Lactate [Moles/Vol] 4.9 mmol/L Critically high 0.4-2.0 [facility] Comment on above: Performed By: #### P OCGLUC #### [facility] [address] [place] [address] Dr. Stephany Williamson Lactate [Moles/Vol] 2.0 mmol/L Normal 0.4-2.0 [facility] Comment on above: Performed By: #### C MP, HSTROPN, BNP #### [facility] [address] [place] [address] Dr. Stephany Williamson LIPASEon 01-12-2023 Lipase [Catalytic activity/Vol] 152.0 U/L Normal 73.0-393.0 [facility] Comment on above: Performed By: #### C BC #### [facility] [address] [place] [address] Dr. Stephany Williamson POINT OF CARE GLUCOSEon 01-02 Glucose [Mass/Vol] 420 mg/dL Critically high [address] [place] [address] Comment on above: Performed By: #### C MREP #### [facility] [address] [place] [address] Dr. Stephany Williamson Glucose [Mass/Vol] 439 mg/dL Critically high [address] [place] [address] Comment on above: Performed By: #### C BC #### [facility] [address] [place] [address] Dr. Stephany Williamson Glucose [Mass/Vol] 481 mg/dL Critically high [facility]106 [facility] Comment on above: Performed By: #### P OCGLUC #### [facility] [address] [place] [address] Dr. Stephany Williamson Glucose [Mass/Vol] 462 mg/dL Critically high [address] [place] [address] Comment on above: Performed By: #### C MREP #### [facility] [address] [place] [address] Dr. Stephany Williamson Glucose [Mass/Vol] 457 mg/dL Critically high [facility]106 [facility] Comment on above: Performed By: #### P OCGLUC #### [facility] [address] [place] [address] Dr. Stephany Williamson PROF 14(COMP METB)on 023 Albumin [Mass/Vol] 4.3 g/dL Normal 3.4-5.0 [facility] Comment on above: Performed By: #### I MMUNGF #### [facility] [address] [place] [address] Dr. Stephany Williamson Albumin/Globulin [Mass ratio] 1.2 {ratio} Normal [facility] Comment on above: Performed By: #### I MMUNGF #### [facility] [address] [place] [address] Dr. Stephany Williamson ALP [Catalytic activity/Vol] 104 U/L Normal 46-116 [facility] Comment on above: Performed By: #### I MMUNGF #### [facility] [address] [place] [address] Dr. Stephany Williamson ALT [Catalytic activity/Vol] 40 U/L Normal 14-59 [facility] Comment on above: Performed By: #### I MMUNGF #### [facility] [address] [place] [address] Dr. Stephany Williamson Anion gap [Moles/Vol] 17.9 mmol/L Normal [facility] Comment on above: Performed By: #### I MMUNGF #### [facility] [address] [place] [address] Dr. Stephany Williamson AST [Catalytic activity/Vol] 17 U/L Normal 15-37 [facility] Comment on above: Performed By: #### I MMUNGF #### [facility] [address] [place] [address] Dr. Stephany Williamson Bilirubin [Mass/Vol] 1.0 mg/dL Normal 0.2-1.0 [facility] Comment on above: Performed By: #### I MMUNGF #### [facility] [address] [place] [address] Dr. Stephany Williamson Calcium [Mass/Vol] 8.8 mg/dL Normal 8.5-10.1 [facility] Comment on above: Performed By: #### I MMUNGF #### [facility] [address] [address] [address] Stephany Williamson Chloride [Moles/Vol] 93 mmol/L Critically low 98-107 [facility] Comment on above: Performed By: #### I MMUNGF #### [facility] [address] [place] [address] Dr. Stephany Williamson CO2 [Moles/Vol] 23.6 mmol/L Normal 21.0-32.0 [facility] Comment on above: Performed By: #### I MMUNGF #### [facility] [address] [place] [address] Dr. Stephany Williamson Creatinine [Mass/Vol] 1.18 mg/dL Critically high 0.55-1.02 [facility] Comment on above: Performed By: #### I MMUNGF #### [facility] [address] [place] [address] Dr. Stephany Williamson EGFR-AF PORTUGUESE 57 mL/min/1.73m2 Critically low >=60 [facility] Comment on above: Performed By: #### I MMUNGF #### [facility] [address] [place] [address] Dr. Stephany Williamson EGFR-NON AF [place] 47 mL/min/1.73m2 Critically low >=60 [facility] Comment on above: Performed By: #### I MMUNGF #### [facility] [address] [place] [address] Dr. Stephany Williamson Globulin (S) [Mass/Vol] 3.7 g/dL Normal [facility] Comment on above: Performed By: #### I MMUNGF #### [facility] [address] [place] [address] Dr. Stephany Williamson Glucose [Mass/Vol] 494 mg/dL Critically high 74-106 [facility] Comment on above: Performed By: #### I MMUNGF #### [facility] [address] [place] [address] Dr. Stephany Williamson Potassium [Moles/Vol] 3.5 mmol/L Normal 3.5-5.1 [facility] Comment on above: Performed By: #### I MMUNGF #### [facility] [address] [place] [address] Dr. Stephany Williamson Protein [Mass/Vol] 8.0 g/dL Normal 6.4-8.2 [facility] Comment on above: Performed By: #### I MMUNGF #### [facility] [address] [place] [address] Dr. Stephany Williamson Sodium [Moles/Vol] 131 mmol/L Critically low 136-145 Th [facility] Comment on above: Performed By: #### I MMUNGF #### [facility] [address] [place] [address] Dr. Stephany Williamson Urea nitrogen [Mass/Vol] 18.0 mg/dL Normal 7.0-18.0 [facility] Comment on above: Performed By: #### I MMUNGF #### [facility] [address] [place] [address] Dr. Stephany Williamson Urea nitrogen/Creatinine [Mass ratio] 15.3 mg/mg Normal [facility] Comment on above: Performed By: #### I MMUNGF #### [facility] [address] [place] [address] Dr. Stephany Williamson PROTIMEon 01-12-2023 INR Coag (PPP) [Relative time] 0.96 {INR} Normal [facility] Comment on above: Performed By: #### P OCGLUC #### [facility] [address] [place] [address] Dr. Stephany Williamson INR GUIDELINES SEE BELOW Normal [facility] Comment on above: Result Comment: YAN RED INR: 2.0 - 3.0 CONDITIONS NOT LISTED BELOW 2.5 - 3.5 FOR PROSTHETIC HEART VALVE REPLACEMENT 2.5 - 3.5 RECURRENT THROMBOSIS Performed By: #### P OCGLUC #### [facility] [address] [place] [address] Dr. Stephany Williamson PT Coag (PPP) [Time] 10.2 s Normal 9.0-11.6 [facility] Comment on above: Performed By: #### P OCGLUC #### [facility] [address] [place] [address] Dr. Stephany Williamson RESPIRATORY PANEL PLUSon Adenovirus Not detected Normal NOT DETECTED [facility] Comment on above: Performed By: #### I MMUNGF #### [facility] [address] [place] [address] Dr. Stephany Nails. Parapertusis Not detected Normal NOT DETECTED [facility] Comment on above: Performed By: #### I MMUNGF #### [facility] [address] [place] [address] Dr. Stephany Nails. Pertussis Not detected Normal NOT DETECTED [facility] Comment on above: Performed By: #### I MMUNGF #### [facility] [address] [place] [address] Dr. Stephany Williamson Chlamydia Pneumoniae Not detected Normal NOT DETECTED [facility] Comment on above: Performed By: #### I MMUNGF #### [facility] [address] [place] [address] Dr. Stephany Williamson Coronavirus 229E Not detected Normal NOT DETECTED [facility] Comment on above: Performed By: #### I MMUNGF #### [facility] [address] [place] [address] Dr. Stephany Williamson Coronavirus HKU1 Not detected Normal NOT DETECTED [facility] Comment on above: Performed By: #### I MMUNGF #### [facility] [address] [place] [address] Dr. Stephany Williamson Coronavirus NL63 Not detected Normal NOT DETECTED [facility] Comment on above: Performed By: #### I MMUNGF #### [facility] [address] [place] [address] Dr. Stephany Williamson Coronavirus OC43 Not detected Normal NOT DETECTED [facility] Comment on above: Performed By: #### I MMUNGF #### [facility] [address] [place] [address] Dr. Stephany Williamson Influenza A H1 Not detected Normal NOT DETECTED [facility] Comment on above: Performed By: #### I MMUNGF #### [facility] [address] [address] [address] Stephany Williamson Influenza A H1 2009 Not detected Normal NOT DETECTED [facility] Comment on above: Performed By: #### I MMUNGF #### [facility] [address] [address] [address] Stephany Williamson Influenza A H3 Not detected Normal NOT DETECTED [facility] Comment on above: Performed By: #### I MMUNGF #### [facility] [address] [place] [address] Dr. Stephany Williamson Influenza B Not detected Normal NOT DETECTED [facility] Comment on above: Performed By: #### I MMUNGF #### [facility] [address] [place] [address] Dr. Stephany Williamson Metapneumovirus Not detected Normal NOT DETECTED [facility] Comment on above: Performed By: #### I MMUNGF #### [facility] [address] [place] [address] Dr. Stephany Williamson Mycoplas. Pneumoniae Not detected Normal NOT DETECTED [facility] Comment on above: Performed By: #### I MMUNGF #### [facility] [address] [place] [address] Dr. Stephany Williamson Parainfluenza 1 Not detected Normal NOT DETECTED [facility] Comment on above: Performed By: #### I MMUNGF #### [facility] [address] [place] [address] Dr. Stephany Williamson Parainfluenza 2 Not detected Normal NOT DETECTED [facility] Comment on above: Performed By: #### I MMUNGF #### [facility] [address] [place] [address] Dr. Stephany Williamson Parainfluenza 3 Not detected Normal NOT DETECTED [facility] Comment on above: Performed By: #### I MMUNGF #### [facility] [address] [place] [address] Dr. Stephany Williamson Parainfluenza 4 Not detected Normal NOT DETECTED [facility] Comment on above: Performed By: #### I MMUNGF #### [facility] [address] [place] [address] Dr. Stephany Williamson Rhino/Enterovirus Not detected Normal NOT DETECTED [facility] Comment on above: Performed By: #### I MMUNGF #### [facility] [address] [place] [address] Dr. Stephany Williamson RP2 Header 1 RESPIRATORY PANEL: VIRUSES Normal [facility] Comment on above: Performed By: #### I MMUNGF #### [facility] [address] [place] [address] Dr. Stephany Williamson RP2 Header 2 RESPIRATORY PANEL: BACTERIA Normal [facility] Comment on above: Performed By: #### I MMUNGF #### [facility] [address] [place] [address] Dr. Stephany Williamson RSV Not detected Normal NOT DETECTED [facility] Comment on above: Performed By: #### I MMUNGF #### [facility] [address] [place] [address] Dr. Stephany Williamson SARS-CoV-2 (COVID-19) RNA REGINA+probe Ql (Unsp spec) Not detected Normal NOT DETECTED [facility] Comment on above: Performed By: #### I MMUNGF #### [facility] [address] [place] [address] Dr. Stephany Williamson SYMPTOMATIC COVID-19 ANTIGEN on 01-12-2023 EUA Statement SEE BELOW Normal [facility] Comment on above: Result Comment: This test has not been FDA cleared or approved, but has been authorized by the FDA under an Emergency Use Authorization (EUA) for use by authorized laboratories certified under CLIA that meet the requirements to perform moderate or high complexity testing. This test has been authorized only for the detection of proteins from SARS-CoV-2, not for any other viruses or pathogens. The emergency use of this test is authorized for the duration of the declaration that circumstances exist justifying the authorization of emergency use of in vitro diagnostic tests for detection and/or diagnosis of Covid-19 under section 564(b)(1) of the Act, 21 U.S.C. 360bbb-3(b)(1), unless the declaration is terminated or authorization is revoked sooner. Performed By: #### C MP, HSTROPN, BNP #### [facility] [address] [place] [address] Dr. Stephany Williamson SARS-CoV-2 (COVID-19) RNA REGINA+probe Ql (Unsp spec) Negative Normal NEGATIVE [facility] Comment on above: Performed By: #### C MP, HSTROPN, BNP #### [facility] [address] [place] [address] Dr. Stephany Williamson XR CHEST 1 Von 01-12-2023 XR CHEST 1 V EXAMINATION: XR CHES T 1 V HISTORY: SHORTNESS OF BREATH , chest pain COMPARISON: XR chest 12/12/2022 FINDINGS: LUNGS: No significant pulmonary parenchymal abnormalities. VASCULATURE: No increased pulmonary vasculature. PLEURA: No pneumothorax, effusion, or pleural thickening. CARDIAC: No cardiomegaly or cardiac silhouette abnormality. MEDIASTINUM: No visible mass or adenopathy. BONES: No fracture or visible bone lesion. OTHER: Negative. IMPRESSION: 1. No acute cardiopulmonary process. Stable chest. Electronically authenticated by: ALEJANDRA COBOS Date: 2023-01-12 15:21 Normal [facility] IMMUNOGLOBULINS IGA/IGM/IGG/ IGE QUANTITAon 01-06-2023 Immunoglobulin A, Qn, Serum 296 mg/dL Normal 87-352 [facility] Comment on above: Result Comment: Perf ormed at: CB Performed By: #### I MMUNGF #### [facility] [address] [place] [address] Dr. Stephany Williamson Immunoglobulin E, Total <2 Critically low 6-495 [facility] Comment on above: Result Comment: Perf ormed at: BN Performed By: #### I MMUNGF #### [facility] [address] [place] [address] Dr. Stephany Williamson Immunoglobulin G, Qn, Serum 804 mg/dL Normal 586-1602 [facility] Comment on above: Result Comment: Perf ormed at: CB Performed By: #### I MMUNGF #### [facility] [address] [place] [address] Dr. Stephany Williamson Immunoglobulin M, Qn, Serum 96 mg/dL Normal 26-217 [facility] Comment on above: Result Comment: Perf ormed at: CB Performed By: #### I MMUNGF #### [facility] [address] [place] [address] Dr. Stephany Nails. PERTUSSIS AB IGA/IGG/IGMo n 01-03-2023 B pertussis IgA Ab 1.0 index Critically high 0.0-0.9 [facility] Comment on above: Result Comment: Nega tive <1.0 Borderline 1.0 - 1.1 Positive >1.1 Performed By: #### C MP, HSTROPN, BNP #### [facility] [address] [place] [address] Dr. Stephany Nails pertussis IgG Ab 1.69 index Invalid Interpretation Code 0.00-0.94 [facility] Comment on above: Result Comment: Clie nt Requested Flag Negative <0.95 Equivocal 0.95 - 1.04 Positive >1.04 Performed By: #### C MP, HSTROPN, BNP #### [facility] [address] [address] [address] Stephany Nails pertussis IgM Ab <1.0 Normal 0.0-0.9 [facility] Comment on above: Result Comment: Nega tive <1.0 Borderline 1.0 - 1.1 Positive >1.1 Performed By: #### C MP, HSTROPN, BNP #### [facility] [address] [place] [address] CHEST WO CONon 01-03-2023 CT CHEST WO CON EXAMINATION: CT CHES T WO CON HISTORY: Chronic cough COMPARISON: XR chest 12/12/2022 TECHNIQUE: Helical axial CT images of the chest were obtained without the administration of IV contrast. Dose reduction techniques were achieved by using automated exposure control and/or adjustment of mA and/or kV according to patient size and/or use of iterative reconstruction technique. FINDINGS: VASCULATURE: No aneurysm. Mild calcific plaques are seen at the thoracic aorta HEART/PERICARDIUM: The heart is normal in size. No pericardial effusion. MEDIASTINAL/HILAR LYMPH NODES: Within the limitations of lack of IV contrast, no lymphadenopathy are identified. ESOPHAGUS: Normal as visualized. PLEURAL CAVITY: No pleural effusion or pneumothorax. LUNGS/AIRWAYS: No areas of consolidation, nodule or mass is seen. There are mild scarring in bilateral apices, right middle lobe and left lung base. The central airways are patent. CHEST WALL/AXILLA/LOWER NECK: Normal. VISUALIZED UPPER ABDOMEN: Images through the upper abdomen demonstrates no acute abnormality. There are partially visualized gallstones. Small hiatal hernia is noted BONES: No acute process.. There are degenerative changes of thoracic spine, most prominent at T6-7 level with severe narrowing of disc space and endplate sclerosis. IMPRESSION: No acute cardiopulmonary abnormality. Partially visualized cholelithiasis. Small hiatal hernia. Electronically authenticated by: KRZYSZTOF UNLU Date: 2023-01-03 14:07 Normal [facility] ASPERGILLUS AB, QUANTITATIVE DIDon 01-01-2023 Aspergillus flavus Negative Normal Neg:<1:1 [facility] Comment on above: Performed By: #### P OCGLUC #### [facility] [address] [address] [address] Stephany Williamson Aspergillus fumigatus Negative Normal Neg:<1:1 [facility] Comment on above: Performed By: #### P OCGLUC #### [facility] [address] [address] [address] Stephany Williamson Aspergillus niger Negative Normal Neg:<1:1 [facility] Comment on above: Performed By: #### P OCGLUC #### [facility] [address] [address] [address] Stephany Williamson QUANTIFERON TB GOLD PLUSon 0 12-31-2022 QuantiFERON Criteria Comment Normal [facility] Comment on above: Result Comment: Fabricio tiFERON-TB Gold Plus is a qualitative indirect test for M tuberculosis infection (including disease) and is intended for use in conjunction with risk assessment, radiography, and other medical and diagnostic evaluations. The QuantiFERON-TB Gold Plus result is determined by subtracting the Nil value from either TB antigen (Ag) value. The Mitogen tube serves as a control for the test. Performed By: #### P OCGLUC #### [facility] [address] [address] [address] Stephany Williamson QuantiFERON Mitogen Value >10.00 Normal [facility] Comment on above: Performed By: #### P OCGLUC #### [facility] [address] [place] [address] Dr. Stephany Williamson QuantiFERON Nil Value 0.00 IU/mL Normal [facility] Comment on above: Performed By: #### P OCGLUC #### [facility] [address] [place] [address] Dr. Stephany Williamson QuantiFERON TB1 Ag Value 0.08 IU/mL Normal [facility] Comment on above: Performed By: #### P OCGLUC #### [facility] [address] [place] [address] Dr. Stephany Williamson QuantiFERON TB2 Ag Value 0.04 IU/mL Normal [facility] Comment on above: Performed By: #### P OCGLUC #### [facility] [address] [place] [address] Dr. Stephany Williamson QuantiFERON Incubation Incubation performed. Normal [facility] Comment on above: Performed By: #### P OCGLUC #### [facility] [address] [place] [address] Dr. Stephany Williamson QuantiFERON-TB Gold Plus Negative Normal Negative [facility] Comment on above: Result Comment: No r esponse to M tuberculosis antigens detected. Infection with M tuberculosis is unlikely, but high risk individuals should be considered for additional testing (ATS/IDSA/CDC Clinical Practice Guidelines, 2017). The reference range is an Antigen minus Nil result of <0.35 IU/mL. Chemiluminescence immunoassay methodology Performed By: #### P OCGLUC #### [facility] [address] [place] [address] Dr. Stephany Williamson IGG SUBCLASSES (1-4) AND TOT Bee 12-30-2022 IgG, Subclass 1 540 mg/dL Normal 248-810 [facility] Comment on above: Performed By: #### C MP, HSTROPN, BNP #### [facility] [address] [place] [address] Dr. Stephany Williamson IgG, Subclass 2 174 mg/dL Normal 130-555 [facility] Comment on above: Performed By: #### C MP, HSTROPN, BNP #### [facility] [address] [place] [address] Dr. Stephany Williamson IgG, Subclass 3 42 mg/dL Normal 15-102 [facility] Comment on above: Performed By: #### C MP, HSTROPN, BNP #### [facility] [address] [place] [address] Dr. Stephany Williamson IgG, Subclass 4 8 mg/dL Normal 2-96 [facility] Comment on above: Performed By: #### C MP, HSTROPN, BNP #### [facility] [address] [place] [address] Dr. Stephany Williamson Immunoglobulin G, Qn, Serum 841 mg/dL Normal 586-1602 [facility] Comment on above: Performed By: #### C MP, HSTROPN, BNP #### [facility] [address] [place] [address] Dr. Stephany Williamson BNPon 12-29-2022 Natriuretic peptide B (Bld) [Mass/Vol] 267.0 pg/mL Normal <=900.0 [facility] Comment on above: Performed By: #### P OCGLUC #### [facility] [address] [place] [address] Dr. Stephany Williamson CBC AUTO DIFFon 12-29-2022 BASO # 0.1 103/ul Normal 0.0-0.1 [facility] Comment on above: Performed By: #### C BC #### [facility] [address] [place] [address] Dr. Stephany Williamson Basophils/100 WBC (Bld) 0.7 % Normal 0.2-2.0 [facility] Comment on above: Performed By: #### C BC #### [facility] [address] [place] [address] Dr. Stephany Williamson EO # 0.2 103/ul Normal 0.0-0.7 [facility] Comment on above: Performed By: #### C BC #### [facility] [address] [place] [address] Dr. Stephany Williamson Eosinophils/100 WBC (Bld) 1.6 % Normal 0.9-7.0 [facility] Comment on above: Performed By: #### C BC #### [facility] [address] [place] [address] Dr. Stephany Williamson Erythrocyte distribution width (RBC) [Ratio] 13.4 % Normal 11.0-15.0 [facility] Comment on above: Performed By: #### C BC #### [facility] [address] [place] [address] Dr. Stephany Williamson Hematocrit (Bld) [Volume fraction] 39.4 % Normal 36.0-48.0 [facility] Comment on above: Performed By: #### C BC #### [facility] [address] [place] [address] Dr. Stephany Williamson Hemoglobin (Bld) [Mass/Vol] 13.6 g/dL Normal 12.0-16.0 [facility] Comment on above: Performed By: #### C BC #### [facility] [address] [place] [address] Dr. Stephany Williamson IG # 0.03 10e3/ul Normal 0.00-0.03 [facility] Comment on above: Performed By: #### C BC #### [facility] [address] [place] [address] Dr. Stephany Williamson IG % 0.3 % Normal 0.0-0.5 [facility] Comment on above: Performed By: #### C BC #### [facility] [address] [place] [address] Dr. Stephany Williamson LYMPH # 2.8 103/ul Normal 1.2-3.8 [facility] Comment on above: Performed By: #### C BC #### [facility] [address] [place] [address] Dr. Stephany Williamson Lymphocytes/100 WBC (Bld) 30.3 % Normal 20.5-60.0 [facility] Comment on above: Performed By: #### C BC #### [facility] [address] [place] [address] Dr. Stephany Williamson MANUAL DIFF REQ NO Normal [facility] Comment on above: Performed By: #### C BC #### [facility] [address] [place] [address] Dr. Stephany Williamson MCH (RBC) [Entitic mass] 29.6 pg Normal 26.7-34.0 [facility] Comment on above: Performed By: #### C BC #### [facility] [address] [place] [address] Dr. Stephany Williamson MCHC (RBC) [Mass/Vol] 34.5 g/dL Normal 29.9-35.2 [facility] Comment on above: Performed By: #### C BC #### [facility] [address] [place] [address] Dr. Stephany Williamson MCV (RBC) [Entitic vol] 85.8 fL Normal 81.0-99.0 [facility] Comment on above: Performed By: #### C BC #### [facility] [address] [place] [address] Dr. Stephany Williamson MONO # 0.4 103/ul Normal 0.3-0.8 [facility] Comment on above: Performed By: #### C BC #### [facility] [address] [place] [address] Dr. Stephany Williamson Monocytes/100 WBC (Bld) 4.4 % Normal 1.7-12.0 [facility] Comment on above: Performed By: #### C BC #### [facility] [address] [place] [address] Dr. Stephany Williamson NEUT # 5.7 103/ul Normal 1.4-6.5 [facility] Comment on above: Performed By: #### C BC #### [facility] [address] [place] [address] Dr. Stephany Williamson Neutrophils/100 WBC (Bld) 62.7 % Normal 43.0-75.0 [facility] Comment on above: Performed By: #### C BC #### [facility] [address] [place] [address] Dr. Stephany Williamson Platelet mean volume (Bld) [Entitic vol] 10.5 fL Normal 9.5-13.5 [facility] Comment on above: Performed By: #### C BC #### [facility] [address] [place] [address] Dr. Stephany Williamson PLT 284 103/ul Normal 150-450 [facility] Comment on above: Performed By: #### C BC #### [facility] [address] [place] [address] Dr. Stephany Williamson RBC 4.59 106/ul Normal 4.20-5.40 [facility] Comment on above: Performed By: #### C BC #### [facility] [address] [place] [address] Dr. Stephany Williamson WBC 9.1 103/ul Normal 4.0-11.0 [facility] Comment on above: Performed By: #### C BC #### [facility] [address] [place] [address] Dr. Stephany Williamson Covid-19 PCR ([facility])on 12-03 SARS-CoV-2 (COVID-19) RNA REGINA+probe Ql (Unsp spec) Not detected Normal NOT DETECTED [facility] Comment on above: Result Comment: When diagnostic testing is negative, the possibility of a false negative should be considered in the context of a patient's recent exposures and the presence of clinical signs and symptoms consistent with SARS-CoV-2. This test is not yet approved or cleared by the [place] FDA. When there are no FDA-approved or cleared tests available, and other criteria are met, FDA can make tests available under an emergency access mechanism called an Emergency Use Authorization (EUA). The EUA for this test is supported by the [place] of Health and Human Service's declaration that circumstances exist to justify the emergency use of in vitro diagnostics for the detection and/or diagnosis of the virus that causes COVID-19. This EUA will remain in effect for the duration of the COVID-19 declaration justifying emergency of IVDs, unless it is terminated or revoked by the FDA (after which the test may no longer be used). Performed By: #### C MP, HSTROPN, BNP #### [facility] [address] [place] [address] Dr. Stephany Williamson XR CHEST 1 Von 12-12-2022 XR CHEST 1 V EXAM: XR CHEST 1 V HISTORY: COUGH COMPARISON: None. TECHNIQUE: Chest X-ray AP, 1 view FINDINGS: Support devices: None. Lungs/pleura: No consolidation, effusion, or pneumothorax. Heart and mediastinum: Normal contours. Bones: No acute abnormality identified. Impression: No radiographic evidence of acute cardiopulmonary process. Electronically authenticated by: DEREK HOUSER Date: 2022-12-12 12:41 Normal [facility] Covid-19 PCR ([facility])on 09-05 SARS-CoV-2 (COVID-19) RNA REGINA+probe Ql (Unsp spec) Not detected Normal NOT DETECTED [facility] Comment on above: Result Comment: This test is not yet approved or cleared by the [place] FDA. When there are no FDA-approved or cleared tests available, and other criteria are met, FDA can make tests available under an emergency access mechanism called an Emergency Use Authorization (EUA). The EUA for this test is supported by the [place] of Health and Human Service's (HHS's) declaration that circumstances exist to justify the emergency use of in vitro diagnostics for the detection and/or diagnosis of the virus that causes COVID-19. This EUA will remain in effect (meaning this test can be used) for the duration of the COVID-19 declaration justifying emergency of IVDs, unless it is terminated or revoked by FDA (after which the test may no longer be used). When diagnostic testing is negative, the possibility of a false negative should be considered in the context of a patient's recent exposures and the presence of clinical signs and symptoms consistent with SARS-CoV-2. Performed By: #### P OCGLUC #### [facility] [address] [address] [address] Stephany Williamson NM STRESS/REST MULTIon 04-27 NM STRESS/REST MULTI Patient: GIORGIO CARSON Exam Date: 04/27/2022 : 1960 Gender:F Ordering : WILFRED CHAVIRA Admission #: [id number] Family : Order #: [id number] CLICK HERE TO VIEW EXAM RADIOLOGY REPORT PROCEDURE: RADIONUCLIDE IMAGING STRESS/REST MULTI COMPARISON: None. INDICATIONS: Chest pain TECHNIQUE: Exam Description: Stress/Rest one day protocol gated SPECT Rest Imagin.8 mCi Tc-99m Cardiolite IV on 04/27/2022 Stress Imaging 30.8 mCi Tc-99m Cardiolite IV on 04/27/2022 Exercise Protocol: 0.4 mg Lexiscan given IV Heart Rate (bpm): Rest: 73 Max: 112 PMHR: 70 Blood Pressure: Rest: 116/78 Max: 126/78 Symptoms: chest pain Rest and peak stress ECG findings were abnormal and the exercise portion of the study was abnormal per attending physician Dr. Levine due to EKG changes. For more details please see separate cardiac stress test report. FINDINGS: QUALITY OF STUDY: Excellent. PERFUSION DEFECT: None. LOCATION: N/A SIZE: N/A. SEVERITY: N/A. TYPE: N/A. WALL MOTION: Normal. LV SIZE: Normal. 53 mL. TID / TCD: None; 0.8 LVEF: Normal. Calculated EF 79%. SUMMARY: Myocardial perfusion imaging study is NORMAL. CONCLUSION: 1. Normal nuclear medicine myocardial perfusion scan. 2. Abnormal exercise portion of study due to EKG changes. Please see Dr. Levine's report. Dictated by: Alejandra Cobos M.D. on 04/27/2022 at 13:48 Approved by: Alejandra Cobos M.D. on 04/27/2022 at 13:51 Normal [facility] SARS-CoV2 IgGon 04-07-2022 SARS-CoV-2 (COVID-19) IgG IA.rapid Ql (S/P/Bld) >800.0 Normal Neg <13.0 [facility] Comment on above: Performed By: #### C BC #### [facility] [address] [place] [address] Dr. Stephany Williamson SARS-CoV-2 (COVID-19) RNA REGINA+probe Ql (Unsp spec) Positive Normal [facility] Comment on above: Result Comment: Anti bodies against the SARS-CoV-2 spike protein, including the receptor binding domain (RBD) were detected. It is not yet known what level of antibody to SARS-CoV-2 spike protein correlates to immunity against developing symptomatic SARS-CoV-2 disease. This assay was performed using [employer](R) SARS-CoV-2 Trimeric S IgG assay. Performed By: #### C BC #### [facility] [address] [place] [address] Dr. Stephany Williamson BNPon 04-06-2022 Natriuretic peptide B (Bld) [Mass/Vol] 313.0 pg/mL Normal <=900.0 [facility] Comment on above: Performed By: #### C MP, HSTROPN, BNP #### [facility] [address] [place] [address] Dr. Stephany Williamson CBC AUTO DIFFon 04-06-2022 BASO # 0.1 103/ul Normal 0.0-0.1 [facility] Comment on above: Performed By: #### C MREP #### [facility] [address] [place] [address] Dr. Stephany Williamson Basophils/100 WBC (Bld) 0.5 % Normal 0.2-2.0 [facility] Comment on above: Performed By: #### C MREP #### [facility] [address] [place] [address] Dr. Stephany Williamson EO # 0.1 103/ul Normal 0.0-0.7 [facility] Comment on above: Performed By: #### C MREP #### [facility] [address] [place] [address] Dr. Stephany Williamson Eosinophils/100 WBC (Bld) 1.1 % Normal 0.9-7.0 [facility] Comment on above: Performed By: #### C MREP #### [facility] [address] [place] [address] Dr. Stephany Williamson Erythrocyte distribution width (RBC) [Ratio] 12.7 % Normal 11.0-15.0 [facility] Comment on above: Performed By: #### C MREP #### [facility] [address] [place] [address] Dr. Stephany Williamson Hematocrit (Bld) [Volume fraction] 37.0 % Normal 36.0-48.0 [facility] Comment on above: Performed By: #### C MREP #### [facility] [address] [address] [address] Stephany Williamson Hemoglobin (Bld) [Mass/Vol] 13.0 g/dL Normal 12.0-16.0 [facility] Comment on above: Performed By: #### C MREP #### [facility] [address] [address] [address] Stephany Williamson IG # 0.04 10e3/ul Critically high 0.00-0.03 [facility] Comment on above: Performed By: #### C MREP #### [facility] [address] [place] [address] Dr. Stephany Williamson IG % 0.4 % Normal 0.0-0.5 [facility] Comment on above: Performed By: #### C MREP #### [facility] [address] [place] [address] Dr. Stephany Williamson LYMPH # 3.1 103/ul Normal 1.2-3.8 [facility] Comment on above: Performed By: #### C MREP #### [facility] [address] [place] [address] Dr. Stephany Williamson Lymphocytes/100 WBC (Bld) 33.1 % Normal 20.5-60.0 [facility] Comment on above: Performed By: #### C MREP #### [facility] [address] [place] [address] Dr. Stephany Williamson MANUAL DIFF REQ NO Normal [facility] Comment on above: Performed By: #### C MREP #### [facility] [address] [place] [address] Dr. Stephany Williamson MCH (RBC) [Entitic mass] 29.9 pg Normal 26.7-34.0 [facility] Comment on above: Performed By: #### C MREP #### [facility] [address] [place] [address] Dr. Stephany Williamson MCHC (RBC) [Mass/Vol] 35.1 g/dL Normal 29.9-35.2 [facility] Comment on above: Performed By: #### C MREP #### [facility] [address] [address] [address] Stephany Williamson MCV (RBC) [Entitic vol] 85.1 fL Normal 81.0-99.0 [facility] Comment on above: Performed By: #### C MREP #### [facility] [address] [address] [address] Stephany Williamson MONO # 0.4 103/ul Normal 0.3-0.8 [facility] Comment on above: Performed By: #### C MREP #### [facility] [address] [place] [address] Dr. Stephany Williamson Monocytes/100 WBC (Bld) 4.6 % Normal 1.7-12.0 [facility] Comment on above: Performed By: #### C MREP #### [facility] [address] [place] [address] Dr. Stephany Williamson NEUT # 5.7 103/ul Normal 1.4-6.5 [facility] Comment on above: Performed By: #### C MREP #### [facility] [address] [place] [address] Dr. Stephany Williamson Neutrophils/100 WBC (Bld) 60.3 % Normal 43.0-75.0 [facility] Comment on above: Performed By: #### C MREP #### [facility] [address] [place] [address] Dr. Stephany Williamson Platelet mean volume (Bld) [Entitic vol] 10.5 fL Normal 9.5-13.5 [facility] Comment on above: Performed By: #### C MREP #### [facility] [address] [place] [address] Dr. Stephany Williamson PLT 268 103/ul Normal 150-450 [facility] Comment on above: Performed By: #### C MREP #### [facility] [address] [place] [address] Dr. Stephany Williamson RBC 4.35 106/ul Normal 4.20-5.40 [facility] Comment on above: Performed By: #### C MREP #### [facility] [address] [place] [address] Dr. Stephany Williamson WBC 9.4 103/ul Normal 4.0-11.0 [facility] Comment on above: Performed By: #### C MREP #### [facility] [address] [place] [address] Dr. Stephany Williamson CRPon 04-06-2022 CRP [Mass/Vol] mg/L Normal <=1.0 [facility] Comment on above: Performed By: #### C MP, HSTROPN, BNP #### [facility] [address] [place] [address] Dr. Stephany Williamson SED RATE WESTERGRENon 2021 SED RATE 9 mm/hr Normal <=30 [facility] Comment on above: Performed By: #### I MMUNGF #### [facility] [address] [place] [address] Dr. Stephany Williamson BNPon 02-25-2022 Natriuretic peptide B (Bld) [Mass/Vol] 126.0 pg/mL Normal <=900.0 [facility] Comment on above: Performed By: #### C MREP #### [facility] [address] [place] [address] Dr. Stephany Williamson CBC AUTO DIFFon 02-25-2022 BASO # 0.1 103/ul Normal 0.0-0.1 [facility] Comment on above: Performed By: #### P OCGLUC #### [facility] [address] [place] [address] Dr. Stephany Williamson Basophils/100 WBC (Bld) 0.5 % Normal 0.2-2.0 [facility] Comment on above: Performed By: #### P OCGLUC #### [facility] [address] [place] [address] Dr. Stephany Williamson EO # 0.1 103/ul Normal 0.0-0.7 [facility] Comment on above: Performed By: #### P OCGLUC #### [facility] [address] [place] [address] Dr. Stephany Williamson Eosinophils/100 WBC (Bld) 0.9 % Normal 0.9-7.0 [facility] Comment on above: Performed By: #### P OCGLUC #### [facility] [address] [address] [address] Stephany Williamson Erythrocyte distribution width (RBC) [Ratio] 12.5 % Normal 11.0-15.0 [facility] Comment on above: Performed By: #### P OCGLUC #### [facility] [address] [place] [address] Dr. Stephany Williamson Hematocrit (Bld) [Volume fraction] 38.5 % Normal 36.0-48.0 [facility] Comment on above: Performed By: #### P OCGLUC #### [facility] [address] [place] [address] Dr. Stephany Williamson Hemoglobin (Bld) [Mass/Vol] 13.4 g/dL Normal 12.0-16.0 [facility] Comment on above: Performed By: #### P OCGLUC #### [facility] [address] [place] [address] Dr. Stephany Williamson IG # 0.03 10e3/ul Normal 0.00-0.03 [facility] Comment on above: Performed By: #### P OCGLUC #### [facility] [address] [place] [address] Dr. Stephany Williamson IG % 0.3 % Normal 0.0-0.5 [facility] Comment on above: Performed By: #### P OCGLUC #### [facility] [address] [place] [address] Dr. Stephany Williamson LYMPH # 3.6 103/ul Normal 1.2-3.8 [facility] Comment on above: Performed By: #### P OCGLUC #### [facility] [address] [place] [address] Dr. Stephany Williamson Lymphocytes/100 WBC (Bld) 37.5 % Normal 20.5-60.0 [facility] Comment on above: Performed By: #### P OCGLUC #### [facility] [address] [place] [address] Dr. Stephany Williamson MANUAL DIFF REQ NO Normal [facility] Comment on above: Performed By: #### P OCGLUC #### [facility] [address] [address] [address] Stephany Williamson MCH (RBC) [Entitic mass] 29.8 pg Normal 26.7-34.0 [facility] Comment on above: Performed By: #### P OCGLUC #### [facility] [address] [place] [address] Dr. Stephany Williamson MCHC (RBC) [Mass/Vol] 34.8 g/dL Normal 29.9-35.2 [facility] Comment on above: Performed By: #### P OCGLUC #### [facility] [address] [place] [address] Dr. Stephany Williamson MCV (RBC) [Entitic vol] 85.7 fL Normal 81.0-99.0 [facility] Comment on above: Performed By: #### P OCGLUC #### [facility] [address] [place] [address] Dr. Stephany Williamson MONO # 0.4 103/ul Normal 0.3-0.8 [facility] Comment on above: Performed By: #### P OCGLUC #### [facility] [address] [place] [address] Dr. Stephany Williamson Monocytes/100 WBC (Bld) 4.5 % Normal 1.7-12.0 [facility] Comment on above: Performed By: #### P OCGLUC #### [facility] [address] [place] [address] Dr. Stephany Williamson NEUT # 5.4 103/ul Normal 1.4-6.5 [facility] Comment on above: Performed By: #### P OCGLUC #### [facility] [address] [place] [address] Dr. Stephany Williamson Neutrophils/100 WBC (Bld) 56.3 % Normal 43.0-75.0 [facility] Comment on above: Performed By: #### P OCGLUC #### [facility] [address] [place] [address] Dr. Stephany Williamson Platelet mean volume (Bld) [Entitic vol] 10.8 fL Normal 9.5-13.5 [facility] Comment on above: Performed By: #### P OCGLUC #### [facility] [address] [place], [place] [address] Dr. Stephany Williamson PLT 253 103/ul Normal 150-450 [facility] Comment on above: Performed By: #### P OCGLUC #### [facility] [address] [place], [place] [address] Dr. Stephany Williamson RBC 4.49 106/ul Normal 4.20-5.40 [facility] Comment on above: Performed By: #### P OCGLUC #### [facility] [address] [place], [place] [address] Dr. Stephany Williamson WBC 9.6 103/ul Normal 4.0-11.0 [facility] Comment on above: Performed By: #### P OCGLUC #### [facility] [address] [place], [place] [address] Dr. Stephany Williamson ECHO LIMITED STUDYon 022 ECHO LIMITED STUDY Patient: LATRELL CARSON Exam Date: 02/25/2022 : 1960 Gender:F Ordering : DR SHARAN RAJAN . Admission #: [id number] Family : Order #: [id number] CLICK HERE TO VIEW EXAM ECHOCARDIOGRAM REPORT PROCEDURE: CARDIO PULMONARY ECHO LIMITED STUDY INDICATIONS: Chest pain, R/O ACS COMPARISON: None. DESCRIPTION: Limited ECHOCARDIOGRAM Real-time transthoracic echocardiography with 2D and M-mode performed. QUALITY: Technical quality was good. LEFT VENTRICLE: Normal chamber size. Mild concentric left ventricular hypertrophy. Global left ventricular systolic function is normal. LV EF: Calculated left ventricular ejection fraction is 61%. DIASTOLIC: ATRIAL SEPTUM: LEFT ATRIUM: Normal chamber size. RIGHT ATRIUM: Normal chamber size. RIGHT VENTRICLE: Normal chamber size. Normal right ventricular systolic function. TRICUSPID VALVE: Normal mobility and thickness. MITRAL VALVE: Normal mobility and thickness. There is no mitral annular calcification. AORTIC VALVE: Normal trileaflet appearance. Normal leaflet mobility. AORTIC ROOT: Normal diameter and appearance. PULMONIC VALVE: Normal thickness and mobility. PERICARDIUM: No evidence of pericardial effusion. IVC: Collapses with inspirations. PLEURA: CONCLUSION: 1. Normal ventricular systolic function. LVEF is 60 to 65%. No segmental wall motion abnormalities. 2. No pericardial effusion. 3. Limited study performed with no Doppler interrogation. Adult Echocardiography Procedure Report Left Ventricle LVEDD (3.7 - 5.6 cm): 4.09 cm LVESD (2.2 - 4.0 cm): 2.60 cm LVIVS thickness (0.6 - 1.2 cm): 1.07 cm LVPW thickness (0.5 - 1.0 cm): 1.07 cm LVOT Area (cm2): 2.54 cm2 LVOT Diameter 1.80 cm Left Ventricular Ejection Fraction: 60-65 % Left Atrium LA Volume Index (2D A2C): 13.10 ml/m2 Left Atrium Systolic Dimension: 3.60 cm Left Atrium Systolic Area(A2C): 10.90 cm2 Left Atrium Systolic Area(A4C): 15.50 cm2 Left Atrium Systolic Volume(A2C): 26878 mm3 Left Atrium Systolic Volume(A4C): 22269 mm3 Mitral Valve Right Ventricle RV Internal Diastolic Dimension: 3.20 cm Aorta AO Root Diam: 2.80 cm Aortic Valve Tricuspid Valve Pulmonic Valve Right Atrium Dictated by: Sharath Beck M.D. on 02/28/2022 at 09:06 Approved by: Sharath Beck M.D. on 02/28/2022 at 09:09 Normal [facility] PROF 14(COMP METB)on 022 Albumin [Mass/Vol] 3.1 g/dL Critically low 3.4-5.0 [facility] Comment on above: Performed By: #### C MREP #### [facility] [address] [place] [address] Dr. Stephany Williamson Albumin/Globulin [Mass ratio] 0.9 {ratio} Normal [facility] Comment on above: Performed By: #### C MREP #### [facility] [address] [address] [address] Stephany Williamson ALP [Catalytic activity/Vol] 97 U/L Normal 46-116 [facility] Comment on above: Performed By: #### C MREP #### [facility] [address] [address] [address] Stephany Williamson ALT [Catalytic activity/Vol] 25 U/L Normal 14-59 [facility] Comment on above: Performed By: #### C MREP #### [facility] [address] [address] [address] Stephany Williamson Anion gap [Moles/Vol] 10.9 mmol/L Normal [facility] Comment on above: Performed By: #### C MREP #### [facility] [address] [address] [address] Stephany Williamson AST [Catalytic activity/Vol] 14 U/L Critically low 15-37 [facility] Comment on above: Performed By: #### C MREP #### [facility] [address] [address] [address] Stephany Williamson Bilirubin [Mass/Vol] 0.4 mg/dL Normal 0.2-1.0 [facility] Comment on above: Performed By: #### C MREP #### [facility] [address] [address] [address] Stephany Williamson Calcium [Mass/Vol] 8.6 mg/dL Normal 8.5-10.1 [facility] Comment on above: Performed By: #### C MREP #### [facility] [address] [address] [address] Stephany Williamson Chloride [Moles/Vol] 101 mmol/L Normal 98-107 [facility] Comment on above: Performed By: #### C MREP #### [facility] [address] [address] [address] Stephany Williamson CO2 [Moles/Vol] 29.1 mmol/L Normal 21.0-32.0 [facility] Comment on above: Performed By: #### C MREP #### [facility] [address] [address] [address] Stephany Williamson Creatinine [Mass/Vol] 0.94 mg/dL Normal 0.55-1.02 [facility] Comment on above: Performed By: #### C MREP #### [facility] [address] [address] [address] Stephany Williamson EGFR-AF PORTUGUESE >60 Normal >=60 [facility] Comment on above: Performed By: #### C MREP #### [facility] [address] [address] [address] Stephany Williamson EGFR-NON AF [place]E >60 Normal >=60 [facility] Comment on above: Performed By: #### C MREP #### [facility] [address] [address] [address] Stephany Williamson Globulin (S) [Mass/Vol] 3.3 g/dL Normal [facility] Comment on above: Performed By: #### C MREP #### [facility] [address] [address] [address] Stephany Williamson Glucose [Mass/Vol] 373 mg/dL Critically high 74-106 [facility] Comment on above: Performed By: #### C MREP #### [facility] [address] [address] [address] Stephany Williamson Potassium [Moles/Vol] 4.0 mmol/L Normal 3.5-5.1 [facility] Comment on above: Performed By: #### C MREP #### [facility] [address] [address] [address] Stephany Williamson Protein [Mass/Vol] 6.4 g/dL Normal 6.4-8.2 [facility] Comment on above: Performed By: #### C MREP #### [facility] [address] [place] [address] Dr. Stephany Williamson Sodium [Moles/Vol] 137 mmol/L Normal 136-145 [facility] Comment on above: Performed By: #### C MREP #### [facility] [address] [address] [address] Stephany Williamson Urea nitrogen [Mass/Vol] 11.0 mg/dL Normal 7.0-18.0 [facility] Comment on above: Performed By: #### C MREP #### [facility] [address] [address] [address] Stephany Williamson Urea nitrogen/Creatinine [Mass ratio] 11.7 mg/mg Normal [facility] Comment on above: Performed By: #### C MREP #### [facility] [address] [place] [address] Dr. Stephany Williamson BNPon 02-24-2022 Natriuretic peptide B (Bld) [Mass/Vol] 197.0 pg/mL Normal <=900.0 [facility] Comment on above: Performed By: #### C MP, HSTROPN, BNP #### [facility] [address] [place] [address] Dr. Stephany Williamson CARDIAC ANDREY 3-6on 2 CK [Catalytic activity/Vol] 155 U/L Normal 26-192 [facility] Comment on above: Performed By: #### C MREP #### [facility] [address] [place] [address] Dr. Stephany Williamson CK.MB [Mass/Vol] 0.96 ng/mL Normal <=3.60 [facility] Comment on above: Performed By: #### C MREP #### [facility] [address] [place] [address] Dr. Stephany Williamson HSTROP 4.9 pg/mL Normal 4.0-51.3 [facility] Comment on above: Result Comment: CUT- OFF POINTS HAVE BEEN ESTABLISHED BASED ON THE FOURTH UNIVERSAL DEFINITIONS OF MYOCARDIAL INFARCTION. THE UPPER REFERENCE LIMIT (URL) OF TROPONIN, DEFINED THE 99TH PERCENTILE OF cTnI DISTRIBUTION IN A REFERENCE POPULATION, HAS BEEN CONFIRMED THE DECISION THRESHOLD FOR [place] DIAGNOSIS. Performed By: #### C MREP #### [facility] [address] [place] [address] Dr. Stephany Williamson CK [Catalytic activity/Vol] 155 U/L Normal 26-192 [facility] Comment on above: Performed By: #### C BC #### [facility] [address] [place] [address] Dr. Stephany Williamson CK.MB [Mass/Vol] 0.50 ng/mL Normal <=3.60 [facility] Comment on above: Performed By: #### C BC #### [facility] [address] [place] [address] Dr. Stephany Williamson HSTROP 5.0 pg/mL Normal 4.0-51.3 [facility] Comment on above: Result Comment: CUT- OFF POINTS HAVE BEEN ESTABLISHED BASED ON THE FOURTH UNIVERSAL DEFINITIONS OF MYOCARDIAL INFARCTION. THE UPPER REFERENCE LIMIT (URL) OF TROPONIN, DEFINED THE 99TH PERCENTILE OF cTnI DISTRIBUTION IN A REFERENCE POPULATION, HAS BEEN CONFIRMED THE DECISION THRESHOLD FOR [place] DIAGNOSIS. Performed By: #### C BC #### [facility] [address] [place] [address] Dr. Stephany Williamson CBC AUTO DIFFon 02-24-2022 BASO # 0.1 103/ul Normal 0.0-0.1 [facility] Comment on above: Performed By: #### C MP, HSTROPN, BNP #### [facility] [address] [place] [address] Dr. Stephany Williamson Basophils/100 WBC (Bld) 0.5 % Normal 0.2-2.0 [facility] Comment on above: Performed By: #### C MP, HSTROPN, BNP #### [facility] [address] [place] [address] Dr. Stephany Williamson EO # 0.1 103/ul Normal 0.0-0.7 [facility] Comment on above: Performed By: #### C MP, HSTROPN, BNP #### [facility] [address] [place] [address] Dr. Stephany Williamson Eosinophils/100 WBC (Bld) 0.9 % Normal 0.9-7.0 [facility] Comment on above: Performed By: #### C MP, HSTROPN, BNP #### [facility] [address] [place] [address] Dr. Stephany Williamson Erythrocyte distribution width (RBC) [Ratio] 12.4 % Normal 11.0-15.0 [facility] Comment on above: Performed By: #### C MP, HSTROPN, BNP #### [facility] [address] [place] [address] Dr. Stephany Williamson Hematocrit (Bld) [Volume fraction] 38.3 % Normal 36.0-48.0 [facility] Comment on above: Performed By: #### C MP, HSTROPN, BNP #### [facility] [address] [place] [address] Dr. Stephany Williamson Hemoglobin (Bld) [Mass/Vol] 13.2 g/dL Normal 12.0-16.0 [facility] Comment on above: Performed By: #### C MP, HSTROPN, BNP #### [facility] [address] [place] [address] Dr. Stephany Williamson IG # 0.02 10e3/ul Normal 0.00-0.03 [facility] Comment on above: Performed By: #### C MP, HSTROPN, BNP #### [facility] [address] [place] [address] Dr. Stephany Williamson IG % 0.2 % Normal 0.0-0.5 [facility] Comment on above: Performed By: #### C MP, HSTROPN, BNP #### [facility] [address] [place] [address] Dr. Stephany Williamson LYMPH # 3.7 103/ul Normal 1.2-3.8 [facility] Comment on above: Performed By: #### C MP, HSTROPN, BNP #### [facility] [address] [place] [address] Dr. Stephany Williamson Lymphocytes/100 WBC (Bld) 36.0 % Normal 20.5-60.0 [facility] Comment on above: Performed By: #### C MP, HSTROPN, BNP #### [facility] [address] [place] [address] Dr. Stephany Williamson MANUAL DIFF REQ NO Normal [facility] Comment on above: Performed By: #### C MP, HSTROPN, BNP #### [facility] [address] [place] [address] Dr. Stephany Williamson MCH (RBC) [Entitic mass] 29.5 pg Normal 26.7-34.0 [facility] Comment on above: Performed By: #### C MP, HSTROPN, BNP #### [facility] [address] [place] [address] Dr. Stephany Williamson MCHC (RBC) [Mass/Vol] 34.5 g/dL Normal 29.9-35.2 [facility] Comment on above: Performed By: #### C MP, HSTROPN, BNP #### [facility] [address] [place] [address] Dr. Stephany Williamson MCV (RBC) [Entitic vol] 85.7 fL Normal 81.0-99.0 [facility] Comment on above: Performed By: #### C MP, HSTROPN, BNP #### [facility] [address] [place] [address] Dr. Stephany Williamson MONO # 0.5 103/ul Normal 0.3-0.8 [facility] Comment on above: Performed By: #### C MP, HSTROPN, BNP #### [facility] [address] [place] [address] Dr. Stephany Williamson Monocytes/100 WBC (Bld) 4.9 % Normal 1.7-12.0 [facility] Comment on above: Performed By: #### C MP, HSTROPN, BNP #### [facility] [address] [place] [address] Dr. Stephany Williamson NEUT # 5.8 103/ul Normal 1.4-6.5 [facility] Comment on above: Performed By: #### C MP, HSTROPN, BNP #### [facility] [address] [place] [address] Dr. Stephany Williamson Neutrophils/100 WBC (Bld) 57.5 % Normal 43.0-75.0 [facility] Comment on above: Performed By: #### C MP, HSTROPN, BNP #### [facility] [address] [place] [address] Dr. Stephany Williamson Platelet mean volume (Bld) [Entitic vol] 11.0 fL Normal 9.5-13.5 [facility] Comment on above: Performed By: #### C MP, HSTROPN, BNP #### [facility] [address] [place] [address] Dr. Stephany Williamson PLT 308 103/ul Normal 150-450 [facility] Comment on above: Performed By: #### C MP, HSTROPN, BNP #### [facility] [address] [address] [address] Stephnay Williamson RBC 4.47 106/ul Normal 4.20-5.40 [facility] Comment on above: Performed By: #### C MP, HSTROPN, BNP #### [facility] [address] [address] [address] Stephany Williamson WBC 10.1 103/ul Normal 4.0-11.0 [facility] Comment on above: Performed By: #### C MP, HSTROPN, BNP #### [facility] [address] [address] [address] Stephany Williamson [facility] SARS-CoV-2 (COVID-19) RNA REGINA+probe Ql (Unsp spec) Not detected Normal NOT DETECTED [facility] Comment on above: Result Comment: When diagnostic testing is negative, the possibility of a false negative should be considered in the context of a patient's recent exposures and the presence of clinical signs and symptoms consistent with SARS-CoV-2. This test is not yet approved or cleared by the [place] FDA. When there are no FDA-approved or cleared tests available, and other criteria are met, FDA can make tests available under an emergency access mechanism called an Emergency Use Authorization (EUA). The EUA for this test is supported by the Hospital Account Liaison of Health and Human Service's declaration that circumstances exist to justify the emergency use of in vitro diagnostics for the detection and/or diagnosis of the virus that causes COVID-19. This EUA will remain in effect for the duration of the COVID-19 declaration justifying emergency of IVDs, unless it is terminated or revoked by the FDA (after which the test may no longer be used). Performed By: #### C MP, HSTROPN, BNP #### [facility] [address] [address] [address] Stephany Williamson D-DIMERon 02-24-2022 D-DIMER 0.37 mg/L FEU Normal <=0.59 [facility] Comment on above: Performed By: #### I MMUNGF #### [facility] [address] [place] [address] Dr. Stephany Williamson D-DIMER COMMENTS SEE BELOW Normal [facility] Comment on above: Result Comment: Incr eases in D-Dimer concentration observed with thromboembolic events can be variable due to localization, size, and age of the thrombus. Therefore, a thromboembolic event cannot be diagnosed with certainty on the basis of the reference range. D-Dimers may also be elevated for a variety of disorders including: advanced age, , coronary disease, cancer, liver disease, infection, inflammation, hematoma, DIC, trauma, post-surgery, diabetes, thrombolytic or anticoagulant therapy, stress, and generalized hospitalization. Performed By: #### I MMUNGF #### [facility] [address] [place] [address] Dr. Stephany Williamson POINT OF CARE GLUCOSEon 02-03 Glucose [Mass/Vol] 248 mg/dL Critically high 74-106 [facility] Comment on above: Performed By: #### C BAUDILIO HSTROPN, BNP #### [facility] [address] [place] [address] Dr. Stephany Williamson Glucose [Mass/Vol] 370 mg/dL Critically high 74-106 [facility] Comment on above: Performed By: #### C BC #### [facility] [address] [place] [address] Dr. Stephany Williamson PROF 14(COMP METB)on 022 Albumin [Mass/Vol] 3.6 g/dL Normal 3.4-5.0 [facility] Comment on above: Performed By: #### C MP, HSTROPN, BNP #### [facility] [address] [place] [address] Dr. Stephany Williamson Albumin/Globulin [Mass ratio] 1.0 {ratio} Normal [facility] Comment on above: Performed By: #### C MP, HSTROPN, BNP #### [facility] [address] [place] [address] Dr. Stephany Williamson ALP [Catalytic activity/Vol] 93 U/L Normal 46-116 [facility] Comment on above: Performed By: #### C MP, HSTROPN, BNP #### [facility] [address] [place] [address] Dr. Stephany Williamson ALT [Catalytic activity/Vol] 25 U/L Normal 14-59 [facility] Comment on above: Performed By: #### C MP, HSTROPN, BNP #### [facility] [address] [place] [address] Dr. Stephany Williamson Anion gap [Moles/Vol] 11.0 mmol/L Normal [facility] Comment on above: Performed By: #### C MP, HSTROPN, BNP #### [facility] [address] [place] [address] Dr. Stephany Williamson AST [Catalytic activity/Vol] 16 U/L Normal 15-37 [facility] Comment on above: Performed By: #### C MP, HSTROPN, BNP #### [facility] [address] [place] [address] Dr. Stephany Williamson Bilirubin [Mass/Vol] 0.5 mg/dL Normal 0.2-1.0 [facility] Comment on above: Performed By: #### C MP, HSTROPN, BNP #### [facility] [address] [place] [address] Dr. Stephany Williamson Calcium [Mass/Vol] 9.2 mg/dL Normal 8.5-10.1 [facility] Comment on above: Performed By: #### C MP, HSTROPN, BNP #### [facility] [address] [place] [address] Dr. Stephany Williamson Chloride [Moles/Vol] 97 mmol/L Critically low 98-107 [facility] Comment on above: Performed By: #### C MP, HSTROPN, BNP #### [facility] [address] [place] [address] Dr. Stephany Williamson CO2 [Moles/Vol] 30.0 mmol/L Normal 21.0-32.0 [facility] Comment on above: Performed By: #### C MP, HSTROPN, BNP #### [facility] [address] [address] [address] Stephany Williamson Creatinine [Mass/Vol] 1.05 mg/dL Critically high 0.55-1.02 [facility] Comment on above: Performed By: #### C MP, HSTROPN, BNP #### [facility] [address] [address] [address] Stephany Williamson EGFR-AF PORTUGUESE >60 Normal >=60 [facility] Comment on above: Performed By: #### C MP, HSTROPN, BNP #### [facility] [address] [place] [address] Dr. Stephany Williamson EGFR-NON AF PORTUGUESE 53 mL/min/1.73m2 Critically low >=60 [facility] Comment on above: Performed By: #### C MP, HSTROPN, BNP #### [facility] [address] [place] [address] Dr. Stephany Williamson Globulin (S) [Mass/Vol] 3.6 g/dL Normal [facility] Comment on above: Performed By: #### C MP, HSTROPN, BNP #### [facility] [address] [place] [address] Dr. Stephany Williamson Glucose [Mass/Vol] 397 mg/dL Critically high 74-106 [facility] Comment on above: Performed By: #### C MP, HSTROPN, BNP #### [facility] [address] [place] [address] Dr. Stephany Williamson Potassium [Moles/Vol] 4.0 mmol/L Normal 3.5-5.1 [facility] Comment on above: Performed By: #### C MP, HSTROPN, BNP #### [facility] [address] [address] [address] Stephany Williamson Protein [Mass/Vol] 7.2 g/dL Normal 6.4-8.2 [facility] Comment on above: Performed By: #### C MP, HSTROPN, BNP #### [facility] [address] [address] [address] Stephany Williamson Sodium [Moles/Vol] 134 mmol/L Critically low 136-145 [facility] Comment on above: Performed By: #### C MP, HSTROPN, BNP #### [facility] [address] [place] [address] Dr. Stephany Williamson Urea nitrogen [Mass/Vol] 11.0 mg/dL Normal 7.0-18.0 [facility] Comment on above: Performed By: #### C MP, HSTROPN, BNP #### [facility] [address] [place] [address] Dr. Stephany Williamson Urea nitrogen/Creatinine [Mass ratio] 10.5 mg/mg Normal [facility] Comment on above: Performed By: #### C MP HSTROPN, BNP #### [facility] [address] [place] [address] Dr. Stephany Williamson PROTIMEon 02-24-2022 INR Coag (PPP) [Relative time] 1.01 {INR} Normal [facility] Comment on above: Performed By: #### I MMUNGF #### [facility] [address] [place] [address] Dr. Stephany Williamson INR GUIDELINES SEE BELOW Normal [facility] Comment on above: Result Comment: YAN RED INR: 2.0 - 3.0 CONDITIONS NOT LISTED BELOW 2.5 - 3.5 FOR PROSTHETIC HEART VALVE REPLACEMENT 2.5 - 3.5 RECURRENT THROMBOSIS Performed By: #### I MMUNGF #### [facility] [address] [place] [address] Dr. Stephany Williamson PT Coag (PPP) [Time] 10.9 s Normal 9.0-11.6 [facility] Comment on above: Performed By: #### I MMUNGF #### [facility] [address] [place] [address] Dr. Stephany Williamson PTTon 02-24-2022 aPTT Coag (Bld) [Time] 24.8 s Normal 22.3-36.2 [facility] Comment on above: Performed By: #### I MMUNGF #### [facility] [address] [place] [address] Dr. Stephany Williamson TROPONIN, HIGH SENSITIVITYon 02-24-2022 HSTROP 4.8 pg/mL Normal 4.0-51.3 [facility] Comment on above: Result Comment: CUT- OFF POINTS HAVE BEEN ESTABLISHED BASED ON THE FOURTH UNIVERSAL DEFINITIONS OF MYOCARDIAL INFARCTION. THE UPPER REFERENCE LIMIT (URL) OF TROPONIN, DEFINED THE 99TH PERCENTILE OF cTnI DISTRIBUTION IN A REFERENCE POPULATION, HAS BEEN CONFIRMED THE DECISION THRESHOLD FOR [place] DIAGNOSIS. Performed By: #### C MP, HSTROPN, BNP #### [facility] [address] [address] [address] Stephany Williamson XR CHEST 1 Von 02-24-2022 XR CHEST 1 V EXAMINATION: XR CHES T 1 V HISTORY: CHEST PAIN, UNSPECIFIED COMPARISON: XR chest 06/11/2018 FINDINGS: LUNGS: No significant pulmonary parenchymal abnormalities. VASCULATURE: No increased pulmonary vasculature. PLEURA: No pneumothorax, effusion, or pleural thickening. CARDIAC: No cardiomegaly or cardiac silhouette abnormality. MEDIASTINUM: No visible mass or adenopathy. BONES: No fracture or visible bone lesion. OTHER: Negative. IMPRESSION: 1. No acute cardiopulmonary process. Electronically authenticated by: ALEJANDRA COBOS Date: 2022-02-24 16:18 Normal [facility] ECHOCARDIO M/2D COMPLETEon 0 02-04-2022 ECHOCARDIO M/2D COMPLETE Patient: GIORGIO CARSON Exam Date: 02/04/2022 : 1960 Gender:F Ordering : [facility] Admission #: [id number] Family : Order #: [id number] CLICK HERE TO VIEW EXAM ECHOCARDIOGRAM REPORT PROCEDURE: CARDIO PULMONARY ECHOCARDIO M/2D COMP INDICATIONS: Murmur, syncope, hypertension COMPARISON: None. DESCRIPTION: COMPLETE ECHOCARDIOGRAM Real-time transthoracic echocardiography with 2D, M-mode, spectral and color flow Doppler performed. QUALITY: Technical quality was good. LEFT VENTRICLE: Normal chamber size. Thickened septal wall. No regional wall motion abnormalities. Systolic function is normal. LV EF: Normal left ventricular ejection fraction, (>55%). DIASTOLIC: Normal diastolic function. ATRIAL SEPTUM: Visually appears intact. LEFT ATRIUM: Normal chamber size. RIGHT ATRIUM: Normal chamber size. RIGHT VENTRICLE: Normal chamber size. Normal right ventricular systolic function. TRICUSPID VALVE: Normal mobility and thickness. No stenosis with trivial regurgitation. MITRAL VALVE: Normal mobility and thickness. No evidence of mitral valve stenosis. There is no mitral annular calcification. Mild mitral regurgitation. AORTIC VALVE: Normal trileaflet appearance. Normal leaflet mobility. No evidence of aortic valve stenosis. Multifocal calcifications. Mild aortic regurgitation. AORTIC ROOT: Normal diameter and appearance. Ascending aorta is normal in size. PULMONIC VALVE: Normal thickness and mobility. No stenosis. No regurgitation. PERICARDIUM: No evidence of pericardial effusion. IVC: Collapses with inspirations. IVC is normal in size. PLEURA: CONCLUSION: 1. Normal ventricular function. LVEF is 60%. 2. Mild mitral regurgitation. 3. Mild aortic regurgitation. 4. No pericardial effusion. Adult Echocardiography Procedure Report Left Ventricle LVEDD (3.7 - 5.6 cm): 4.31 cm LVESD (2.2 - 4.0 cm): 2.87 cm LVIVS thickness (0.6 - 1.2 cm): 1.22 cm LVPW thickness (0.5 - 1.0 cm): 8.38 mm e': 10.30 cm/s E - e': 8.40 LVOT Area (cm2): 4.15 cm2 LVOT Diameter 2.30 cm Left Ventricular Ejection Fraction: 60 % Left Atrium LA Volume Index (2D A2C): 19.60 ml/m2 Left Atrium Systolic Dimension: 3.80 cm Left Atrium Systolic Area(A2C): 15.40 cm2 Left Atrium Systolic Area(A4C): 16.20 cm2 Left Atrium Systolic Volume(A2C): 38448 mm3 Left Atrium Systolic Volume(A4C): 97241 mm3 Mitral Valve MV E to A Ratio: 0.90 Mitral Valve A-Wave Peak Velocity: 94.80 cm/s Mitral Valve E-Wave Peak Velocity: 86.90 cm/s Deceleration Time: 230 ms Right Ventricle Aorta AO Root Diam: 3.40 cm Aortic Valve AoV Area (Peak Alexx): 3.28 cm2 AoV Area (VTI): 3.73 cm2 Peak Velocity(Antegrade Flow): 152.00 cm/s Peak Gradient(Antegrade Flow): 9 mm[Hg] Mean Velocity(Antegrade Flow): 97.50 cm/s Mean Gradient(Antegrade Flow): 4 mm[Hg] Velocity Time Integral: 31.40 cm Tricuspid Valve Pulmonic Valve Peak Velocity: 113.00 cm/s Peak Gradient: 5 mm[Hg] Right Atrium Dictated by: Sharath Beck M.D. on 02/04/2022 at 17:47 Approved by: Sharath Beck M.D. on 02/04/2022 at 17:50 Normal [facility] US CAROTID ART BILon 05-20-2 022 US CAROTID ART EMELIA EXAMINATION: US MCKENZIE TID ART EMELIA HISTORY: Syncope and collapse COMPARISON: No relevant comparison available. TECHNIQUE: Duplex Doppler ultrasound analysis of carotid and vertebral arteries. . Bilateral carotid arterial duplex examination was performed using B-mode, color flow and spectral analysis. Carotid stenosis is reported according to validated velocity parameters, similar to NASCET criteria. FINDINGS: RIGHT CAROTID ARTERY: No visible stenosis or significant plaque. RIGHT VERTEBRAL: Antegrade flow. Subclavian: PSV: 90.5 cm/s EDV: 0.0 cm/s CCA: Prox: PSV: 87.9 cm/s EDV: 14.1 cm/s Mid: PSV: 81.4 cm/s EDV: 16.7 cm/s Distal: PSV: 59.4 cm/s EDV: 16.7 cm/s BULB: PSV: 39.2 cm/s EDV: 11.3 cm/s ICA: Prox: PSV: 47.0 cm/s EDV: 13.0 cm/s Mid: PSV: 104.3 cm/s EDV: 33.3 cm/s Distal: PSV: 101.1 cm/s EDV: 39.7 cm/s ECA: PSV: 81.7 cm/s EDV: 9.0 cm/s VERTEBRAL: PSV: 45.9 cm/s EDV: 15.4 cm/s ICA/CCA ratio: PSV: 1.2 EDV: 2.4 LEFT CAROTID ARTERY: No visible stenosis or significant plaque. LEFT VERTEBRAL: Antegrade flow. Subclavian: PSV: 114.5 cm/s EDV: 0.0 cm/s CCA: Prox: PSV: 93.5 cm/s EDV: 19.2 cm/s Mid: PSV: 75.7 cm/s EDV: 20.8 cm/s Distal: PSV: 51.4 cm/s EDV: 16.5 cm/s BULB: PSV: 46.1 cm/s EDV: 9.5 cm/s ICA: Prox: PSV: 51.1 cm/s EDV: 19.7 cm/s Mid: PSV: 94.0 cm/s EDV: 37.0 cm/s Distal: PSV: 104.3 cm/s EDV: 39.7 cm/s ECA: PSV: 89.8 cm/s EDV: 9.0 cm/s VERTEBRAL: PSV: 49.4 cm/s EDV: 17.1 cm/s ICA/CCA ratio: PSV: 1.1 EDV: 2.1 IMPRESSION: 0-49% flow stenosis within the right left carotid arteries. No significant plaque or narrowing. 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 However, the narrative phrase printed from the coding software may appear abbreviated, or result in slightly different terminology. Coded By: Yessy De La Paz Date Saved: 03/26/2019 02:14 pm [facility] Provider Orderson 03-26-2019 Provider Orders [id number] GTIFF [facility] .Auto Diff 1on 03-25-2019 Auto Benzie % 6 % Normal 12 [facility] Comment on above: Performed By: #### 2 219526, [id number], 3046875, 4018449, 68678605, 2896367, 1020923610, 5961474, 1756328138, 4000927, [id number] #### [facility] (DEFAULT) [address] [place] [address] Baso Abs# 0.1 x10 Normal 0.0-0.2 [facility] Comment on above: Performed By: #### 2 529521, [id number], 2086157, 2892516, 22597148, 6712483, 2005390476, 9827128, 4337354558, 0776095, [id number] #### [facility] (DEFAULT) [address] [place] [address]1649 Basophils/100 WBC (Bld) 0.6 % Normal 0.2-2.0 [facility] Comment on above: Performed By: #### 2 897874, [id number], 0181502, 4613573, 75186511, 1621558, 7957644517, 4080198, 9322895719, 5438636, [id number] #### [facility] (DEFAULT) [address] [place] [address] Eos Abs# 0.1 x10 Normal 0.0-0.4 [facility] Comment on above: Performed By: #### 2 175653, [id number], 7609700, 4699989, 79868638, 7871773, 6997324062, 8198760, 2587896234, 8647428, [id number] #### [facility] (DEFAULT) [address] [place] [address]493 Eosinophils/100 WBC (Bld) 1.2 % Normal 0.9-4.0 [facility] Comment on above: Performed By: #### 2 943637, [id number], 1492433, 7247836, 18789381, 3463666, 4442252510, 2127013, 6678618353, 2752148, 1458517204 #### [facility] (DEFAULT) [address] [place] [address] 89454 Lymphocytes (Bld) [#/Vol] 2.7 x10 Normal 1.3-2.9 [facility] Comment on above: Performed By: #### 2 242993, [id number], 8169450, 5852309, 03053325, 1255531, 1000392028, 2303356, 2087341770, 7894488, [id number] #### [facility] (DEFAULT) [address] [place] [address]327 Lymphocytes/100 WBC (Bld) 25 % Normal 14-48 [facility] Comment on above: Performed By: #### 2 989896, [id number], 0811866, 0967236, 22820495, 7343524, 1601468707, 8683518, 5797314621, 9175773, 3704017043 #### [facility] (DEFAULT) [address] [place] [address] Benzie Abs# 0.7 x10 Normal 0.0-0.8 [facility] Comment on above: Performed By: #### 2 192774, [id number], 6152884, 7466548, 41320878, 4176864, 3959832389, 8383258, 6491299807, 1865322, [id number] #### [facility] (DEFAULT) [address] [place] [address] Neut Abs# 7.3 x10 Normal 1.5-9.2 [facility] Comment on above: Performed By: #### 2 790991, [id number], 9321766, 0017141, 60443853, 0490115, 6348131236, 5936048, 3763770054, 9680097, 1705886866 #### [facility] (DEFAULT) [address] [place] [address] Neutrophils/100 WBC (Bld) 67 % Normal 44-88 [facility] Comment on above: Performed By: #### 2 696535, 1505514616, 3271009, 4506231, 08730930, 4359228, 2686735114, 2357105, 7217387294, 0502336, 5554816325 #### [facility] (DEFAULT) [address] [place], [place] [address] BMP Standardon 03-25-2019 eGFR Non AA 50 mL/min/1.73m2 [facility] Comment on above: Performed By: #### 2 386274, [id number], 1506986, 9489321, 66058914, 4280660, 9703872093, 7220312, 8198609868, 3489897, 8809818750 #### [facility] (DEFAULT) [address] [place] [address] 83687 eGFR AA 60 mL/min/1.73m2 [facility] Comment on above: Result Comment: [employer] Manager cynthia Kidney disease could be indicated at eGFRs of less than 60 ml/min/1.73m2. Kidney Failure is indicated at less than 15 ml/min/1.73m2 Performed By: #### 2 025955, 7009431657, 9494835, 0184121, 47217515, 1510048, 3689139235, 8141229, 9554502969, 4761453, 0532702146 #### [facility] (DEFAULT) [address] [place] [address] Anion gap [Moles/Vol] 14.0 mmol/L Normal 5.0-19.0 [facility] Comment on above: Performed By: #### 2 336676, [id number], 1161908, 6675949, 74519113, 4897612, 8876059729, 8435164, 7065684845, 5815765, 9853866026 #### [facility] (DEFAULT) [address] [place] [address] 07843 Calcium [Mass/Vol] 9.1 mg/dL Normal 8.9-10.3 [facility] Comment on above: Performed By: #### 2 395398, 9793450845, 0098396, 3711998, 54632988, 2297742, 0986352388, 4403631, 9376132097, 4778176, 3985653741 #### [facility] (DEFAULT) [address] [place] [address] 74217 Chloride [Moles/Vol] 106 mmol/L Normal 101-111 [facility] Comment on above: Performed By: #### 2 999091, 7121378739, 3617265, 0439556, 94277085, 8544869, 9541539402, 1000543, 5483900409, 0693793, 1850365027 #### [facility] (DEFAULT) [address] [place] [address] 04896 CO2 [Moles/Vol] 28 mmol/L Normal 21-32 [facility] Comment on above: Performed By: #### 2 882129, [id number], 6199279, 7174910, 05863714, 4254153, 2271664760, 5186239, 8611628032, 7848485, 0350437496 #### [facility] (DEFAULT) [address] [place] [address] 74721 Creatinine [Mass/Vol] 1.13 mg/dL Normal 0.60-1.30 [facility] Comment on above: Performed By: #### 2 097387, 1212470349, 9770368, 9446311, 29610857, 1856484, 1207970291, 8954509, 0065637399, 4686904, 2779917857 #### [facility] (DEFAULT) [address] [place] [address] 68937 Glucose [Mass/Vol] 118.0 mg/dL Normal 74.0-118.0 [facility] Comment on above: Performed By: #### 2 664997, [id number], 4281284, 5831975, 23474096, 9743845, 5720179509, 3005362, 4417605902, 4776046, [id number] #### [facility] (DEFAULT) [address] [place] [address] 06310 Osmolality [Osmolality] 289 mOsm/L [facility] Comment on above: Performed By: #### 2 109128, 3084136840, 3346179, 7497491, 02322466, 4421803, 7163567126, 9651520, 2970212131, 5024566, [id number] #### [facility] (DEFAULT) [address] [place] [address] 95794 Potassium [Moles/Vol] 4.0 mmol/L Normal 3.6-5.1 [facility] Comment on above: Performed By: #### 2 087313, 7099429823, 6340508, 5333601, 58822486, 1803899, 3210318273, 4209938, 4106491567, 2828457, 8416361411 #### [facility] (DEFAULT) [address] [place] [address] Sodium [Moles/Vol] 144.0 mmol/L Normal 136.0-144.0 [facility] Comment on above: Performed By: #### 2 890766, 6851934697, 8408821, 5451240, 79187573, 5454393, 1375823851, 4735489, 1752145775, 6482630, 2864088959 #### [facility] (DEFAULT) [address] [place] [address] Urea nitrogen [Mass/Vol] 15 mg/dL Normal 8-26 [facility] Comment on above: Performed By: #### 2 425131, 9793219761, 8306629, 4469040, 03513151, 9103460, 2728848286, 8087159, 8613336511, 2974335, 9622103212 #### [facility] (DEFAULT) [address] [place] [address] Urea nitrogen/Creatinine [Mass ratio] 13.0 mg/mg Normal 4.6-16.2 [facility] Comment on above: Performed By: #### 2 412294, 9627291707, 7722391, 6374723, 62995504, 7784950, 4982288581, 3258488, 4101747621, 6708492, 2577363784 #### [facility] (DEFAULT) [address] [place] [address] 37817 CBC w/ Auto Diffon 9 Erythrocyte distribution width (RBC) [Ratio] 14.3 % Normal 11.5-15.0 [facility] Comment on above: Performed By: #### 2 187250, 6062630054, 1348148, 4544031, 83302881, 7355682, 3180067851, 1279884, 4157121858, 2364935, 9500414370 #### [facility] (DEFAULT) [address] [place] [address] Hematocrit (Bld) [Volume fraction] 39.9 % Normal 33.7-40.4 [facility] Comment on above: Performed By: #### 2 024173, 4554258123, 1985689, 0991868, 44534141, 4316918, 6519127040, 9148264, 2844074236, 2072855, 2037638692 #### [facility] (DEFAULT) [address] [place] [address] Hemoglobin (Bld) [Mass/Vol] 13.1 g/dL Normal 11.3-15.9 [facility] Comment on above: Performed By: #### 2 169251, 0496405389, 1095466, 7982082, 22851864, 3804984, 9315011811, 7239830, 9065458775, 9706353, 0574296744 #### [facility] (DEFAULT) [address] [place] [address] Man Diff? Auto Normal [facility] Comment on above: Performed By: #### 2 618489, 1716491218, 6063753, 8297888, 41505982, 4009309, 3713824375, 0291688, 3172321299, 1569340, 0980393181 #### [facility] (DEFAULT) [address] [place] [address] MCH (RBC) [Entitic mass] 29 pg Normal 24-34 [facility] Comment on above: Performed By: #### 2 125385, 1643393701, 3022894, 7263654, 23898254, 3041869, 7154891973, 9302994, 3983938386, 3603375, 9550052689 #### [facility] (DEFAULT) [address] [place] [address] MCHC (RBC) [Mass/Vol] 33 g/dL Normal 26-37 [facility] Comment on above: Performed By: #### 2 877871, 3110680557, 0808780, 2698380, 31907363, 1470389, 1175643893, 7155309, 1237490116, 5820120, 4290844564 #### [facility] (DEFAULT) [address] [place] [address] 12749 MCV (RBC) [Entitic vol] 89 fL Normal 81-100 [facility] Comment on above: Performed By: #### 2 553976, 6064608856, 3091001, 0083150, 72744840, 0340302, 0460545571, 0254692, 7106230513, 5685018, 6948773076 #### [facility] (DEFAULT) [address] [place] [address] 78909 Platelet mean volume (Bld) [Entitic vol] 10.6 fL High 6.3-10.2 [facility] Comment on above: Performed By: #### 2 787888, 1068103487, 4277594, 1934329, 50384995, 5618079, 5945480268, 0823689, 9706504743, 6401753, 1917067262 #### [facility] (DEFAULT) [address] [place] [address] 97770 Platelets (Bld) [#/Vol] 300 x10 Normal 138-427 [facility] Comment on above: Performed By: #### 2 538906, 1588911181, 5871237, 5059074, 84630156, 9431135, 6049231676, 1132754, 3580373638, 3049572, 5027114050 #### [facility] (DEFAULT) [address] [place] [address] 28069 RBC (Bld) [#/Vol] 4.49 x10 Normal 3.70-5.30 [facility] Comment on above: Performed By: #### 2 090925, 1044908531, 9864054, 6869367, 87329555, 6208233, 3017067661, 8177044, 4422712381, 4053848, 1945621826 #### [facility] (DEFAULT) [address] [place] [address] 20235 WBC (Bld) [#/Vol] 10.8 x10 High 3.5-10.5 [facility] Comment on above: Performed By: #### 2 769475, 6597192052, 3846047, 1521168, 04557096, 6866013, 4347234232, 4169889, 8123628217, 4343946, 9676187686 #### [facility] (DEFAULT) [address] [place] [address] Hepatic Function Panel Stand jill 03-25-2019 Albumin [Mass/Vol] 3.4 g/dL Low 3.5-5.0 [facility] Comment on above: Performed By: #### 2 367388, 9347933628, 4915597, 8661541, 04127661, 8918936, 7645729569, 5295667, 8569878025, 4993433, 3749079954 #### [facility] (DEFAULT) [address] [place] [address] Albumin/Globulin [Mass ratio] 1.0 {ratio} Low 1.4-2.6 [facility] Comment on above: Performed By: #### 2 666017, 8797198590, 2625329, 7435376, 98314206, 2855260, 9548879946, 1706015, 0302578610, 3876397, 9385774777 #### [facility] (DEFAULT) [address] [place] [address] 17577 Alk Phos 91 IU/L Normal 32-91 [facility] Comment on above: Performed By: #### 2 144721, 3758947548, 3390663, 9537819, 32786566, 9933657, 7633543236, 3077078, 5448211641, 3889570, 7637097620 #### [facility] (DEFAULT) [address] [place] [address] ALT/SGPT 18.0 IU/L Normal 14.0-54.0 [facility] Comment on above: Performed By: #### 2 389795, 6833105196, 9488055, 5274414, 52699210, 7768008, 7187647827, 4055419, 2328230159, 3661781, 0070488923 #### [facility] (DEFAULT) [address] [place] [address] AST/SGOT 16 IU/L Normal 15-41 [facility] Comment on above: Performed By: #### 2 793629, 5290904726, 5875209, 1673886, 54271237, 2966508, 1899222103, 7779048, 3383915574, 5156247, 6224188310 #### [facility] (DEFAULT) [address] [place] [address] Bili Direct 0.10 mg/dL Normal 0.10-0.50 [facility] Comment on above: Performed By: #### 2 545759, 9382788479, 9425304, 3681976, 23473559, 7544256, 5189165776, 1383385, 9700939999, 0337680, 2939148787 #### [facility] (DEFAULT) [address] [place] [address] Bili Indirect 0.4 mg/dL Normal 0.2-0.8 [facility] Comment on above: Performed By: #### 2 725616, 3095989429, 6635678, 3420770, 50012847, 7332190, 6532944364, 8861887, 6118593232, 6215993, 3001545693 #### [facility] (DEFAULT) [address] [place] [address] Bili Total 0.5 mg/dL Normal 0.3-1.2 [facility] Comment on above: Performed By: #### 2 287878, 6950701324, 5802959, 5950102, 57996566, 3001794, 1453552955, 5012240, 2658987047, 1332089, 3683205126 #### [facility] (DEFAULT) [address] [place] [address] Globulin (S) [Mass/Vol] 3.3 g/dL Normal 1.5-4.3 [facility] Comment on above: Performed By: #### 2 595894, 2196853824, 2050841, 5454853, 45159157, 8428365, 3606517132, 3198069, 3877093463, 3869341, 7906508531 #### [facility] (DEFAULT) [address] [place] [address] 77317 Protein [Mass/Vol] 6.7 g/dL Normal 6.5-8.1 [facility] Comment on above: Performed By: #### 2 405617, 9706433183, 9764333, 2471626, 66002242, 3857524, 7111183967, 2387354, 3446914950, 8655557, 4719610216 #### [facility] (DEFAULT) [address] [place] [address] 64407 Thyroid Panel 4on 03-25-2019 T3 Uptake. 45 % Normal 32-48 [facility] Comment on above: Performed By: #### 2 686641, 1842659950, 7102122, 0434628, 57443607, 0027561, 8123442642, 4864706, 7133469609, 8773053, 6840333472 #### [facility] (DEFAULT) [address] [place] [address] 26756 T4 [Mass/Vol] 6.69 ug/dL Normal 6.09-12.23 [facility] Comment on above: Performed By: #### 2 528281, 0957367791, 2467695, 1039020, 94704740, 6337733, 2813849298, 4143256, 3130402222, 1938190, 7814489223 #### [facility] (DEFAULT) [address] [place] [address] 68202 T7 3.01 Normal 1.94-5.91 [facility] Comment on above: Performed By: #### 2 005284, 3186751324, 9406915, 5195346, 96120956, 3701595, 3766980452, 3942686, 8366677108, 3441044, 3669207347 #### [facility] (DEFAULT) [address] [place] [address] 35750 TSH Qn 1.22 mcIU/mL Normal 0.45-5.33 [facility] Comment on above: Result Comment: Gene ral Population (males and non- females, aged 21-88) 0.45 - 5.33 Females, 1st Trimester 0.05 - 3.70 Females, 2nd Trimester 0.31 - 4.35 Females, 3rd Trimester 0.41 - 5.18 Performed By: #### 2 310863, 4508190423, 2587991, 1460216, 16837714, 2133499, 1398999173, 8848218, 6013059051, 7127335, 5605958046 #### [facility] (DEFAULT) [address] [place] [address] UA w Culture if Ind Standard on 03-25-2019 Breakpoint UA Normal [facility] Comment on above: Performed By: #### 2 508092, 1525306442, 1589688, 8034208, 12325763, 0229338, 4831399612, 3014894, 0675485158, 8166629, 8047468582 #### [facility] (DEFAULT) [address] [place] [address] 25937 Color (U) YELLOW [facility] Comment on above: Performed By: #### 2 581812, 0291148368, 1521611, 3112037, 04542478, 3591401, 0020320102, 0845010, 3174173460, 1353105, 6685237633 #### [facility] (DEFAULT) [address] [place] [address] 61705 Culture? Not Indicated [facility] Comment on above: Performed By: #### 2 312488, 5035804727, 9631813, 2863241, 41087105, 7249321, 2158250862, 6719157, 4329680341, 3320608, 0117271484 #### [facility] (DEFAULT) [address] [place] [address] 00075 Glucose (U) [Mass/Vol] Negative [facility] Comment on above: Performed By: #### 2 987898, 9980975785, 3466382, 4604902, 09434056, 8541041, 4409838452, 7911255, 9498129039, 9374564, 9094184118 #### [facility] (DEFAULT) [address] [place] [address] Ketones Ql (U) Negative [facility] Comment on above: Performed By: #### 2 702707, 5053717262, 3796239, 5431993, 15669959, 5890131, 7973461725, 5002477, 9990924412, 6768280, 1013995953 #### [facility] (DEFAULT) [address] [place] [address] Micro? Not Indicated [facility] Comment on above: Performed By: #### 2 053200, 5051093165, 9817901, 6348405, 87229361, 3235480, 6789619240, 1093317, 0108939207, 2978233, 8383200524 #### [facility] (DEFAULT) [address] [place] [address] UA Bilirubin Negative Normal [facility] Comment on above: Performed By: #### 2 793890, 8069789114, 0237532, 7015557, 10251901, 5538952, 8154756648, 6813056, 4864889851, 7020061, 6009863968 #### [facility] (DEFAULT) [address] [place] [address] UA Blood Negative Normal NEGATIVE [facility] Comment on above: Performed By: #### 2 213017, 9269607121, 0248300, 3760562, 26998837, 9257872, 3843805780, 9059971, 5402017707, 7183721, 0481573597 #### [facility] (DEFAULT) [address] [place] [address] UA Clarity CLEAR Normal CLEAR [facility] Comment on above: Performed By: #### 2 377797, 4369159516, 7099558, 8881423, 29090901, 1204566, 7155876535, 0754873, 4959731207, 6939604, 0873684310 #### [facility] (DEFAULT) [address] [place] [address] UA Leuk Est Negative Normal NEGATIVE [facility] Comment on above: Performed By: #### 2 786532, 2899168511, 6095108, 5035858, 12548467, 7382613, 6487707633, 1530544, 9566419822, 9797455, 0685435566 #### [facility] (DEFAULT) [address] [place] [address] UA Nitrite Negative Normal NEGATIVE [facility] Comment on above: Performed By: #### 2 097448, 0861685718, 1822928, 1716192, 27605820, 1779429, 5314644014, 3305966, 1917609894, 6917854, 0833506772 #### [facility] (DEFAULT) [address] [place] [address] UA pH 5.5 5-8 [facility] Comment on above: Performed By: #### 2 772689, 8894488676, 2793138, 1783443, 28136512, 6356327, 4249531375, 6080725, 6481436660, 1840078, 3190955313 #### [facility] (DEFAULT) [address] [place] [address] UA Protein Negative Normal NEGATIVE [facility] Comment on above: Performed By: #### 2 183393, 2083602805, 2236036, 7524846, 19725451, 9991025, 7432116211, 9408500, 4793066112, 2150851, 2336322640 #### [facility] (DEFAULT) [address] [place] [address] UA Spec Grav 1.020 1.001-1.035 [facility] Comment on above: Performed By: #### 2 794356, 1900928701, 9968399, 9763806, 05002154, 0652502, 9332549234, 5942437, 6358338900, 1250511, 8151112517 #### [facility] (DEFAULT) [address] [place] [address] 90478 UA Urobilinogen 0.2 mg/dL Normal 0.2-1.0 [facility] Comment on above: Performed By: #### 2 069774, 5180133882, 4515733, 6734429, 18308666, 3322381, 5311461228, 7731394, 0755478118, 9620634, 9155570352 #### [facility] (DEFAULT) [address] [place] [address] 80610 Urine Source Clean Catch Normal [facility] Comment on above: Performed By: #### 2 967853, 2711617663, 1333108, 9984125, 05669826, 7220615, 8727482923, 1671248, 7887202687, 1009607, 1639990058 #### [facility] (DEFAULT) [address] [place] [address] 15597 .Ova + Parasite Exam Resulto n 06-20-2018 O+P Result 1 LC Comment [facility] Comment on above: Result Comment: No o va, cysts, or parasites seen. Performed At: [facility] [id number] Martha Masters PhD Ph:[phone] Performed By: #### 2 397312, 1095213765, 1868274, 9105163, 44741290, 9854405, 9832201363, 6028003, 5182929474, 0756899, 8357766442 #### [facility] (DEFAULT) [address] [place] [address] 47798 Coding Summaryon 06-20-2018 Coding Summary CODING DATE: 018 FINAL [facility] STATUS: Home PAYOR: Commercial Insurance ADMIT DX: REASON FOR VISIT DX: R07.9 Chest pain, unspecified FINAL DX: PRINCIPAL: R07.9 Chest pain, unspecified SECONDARY: M54.89 Other dorsalgia PROCEDURES DOCTOR NAME DATE NOTE: The code number assigned matches the documented diagnosis and / or procedure in the patient's chart. However, the narrative phrase printed from the coding software may appear abbreviated, or result in slightly different terminology. 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 However, the narrative phrase printed from the coding software may appear abbreviated, or result in slightly different terminology. Coded By: Jean Paul Riggs Date Saved: 06/20/2018 03:03 pm [facility] Ova + Parasite Exam LCon Ova + Parasite Exam LC Final report [facility] Comment on above: Result Comment: Thes e results were obtained using wet preparation(s) and trichrome stained smear. This test does not include testing for Cryptosporidium parvum, Cyclospora, or Microsporidia. Performed At: [address] [id number] Martha Masters PhD Ph:[phone] Performed By: #### 2 012772, 2115209307, 1980468, 4119008, 67058384, 9018975, 9894331299, 6635105, 5438442304, 5231141, 8244847068 #### [facility] (DEFAULT) [address] [place] [address] C Stoolon 06-15-2018 C Stool Campylobacter Antige n Negative Shiga Toxin 1 Negative Shiga Toxin 2 Negative No Salmonella, Shigella, Yersinia, Aeromonas, or Plesiomonas specimen isolated. [facility] Comment on above: Performed By: #### 2 381800, 2852801571, 4915951, 4453409, 49927863, 1641583, 5633126379, 0387791, 4406489656, 4034321, 1337560579 #### [facility] (DEFAULT) [address] [place] [address] C. diff DNAon 06-12-2018 Internal QC OK? Pass Normal [facility] Comment on above: Performed By: #### 2 774047, 3448355410, 5321509, 4741446, 15450481, 5896658, 0517632204, 1355523, 6974693750, 5306731, 7897235459 #### [facility] (DEFAULT) [address] [place] [address] C. diff DNA Negative Normal Negative [facility] Comment on above: Result Comment: Spec imen negative for toxigenic C. difficile by DNA amplification. Duplicate specimens will not be accepted on this patient for the next 7 days. Published data on the sensitivity of molecular assays suggest that there is no diagnostic value in repeat testing of samples in close time sequence. Performed By: #### 2 645786, 3886693778, 3709383, 4597427, 99518545, 2653093, 9065299144, 9374076, 9263939251, 9273953, 8107039731 #### [facility] (DEFAULT) [address] [place] [address] Fecal WBCon 06-12-2018 Fecal WBC None Seen [facility] Comment on above: Performed By: #### 2 579239, 7962332716, 0921108, 3591553, 76765639, 8033948, 5180772782, 6767484, 5520196618, 7101131, 3512382236 #### [facility] (DEFAULT) [address] [place] [address] 66038 Provider Orderson 06-12-2018 Provider Orders [id number] 030 [id number] GTIFF Normal [facility] .Auto Diff 1on 06-11-2018 Auto Benzie % 6 % Normal - [facility] Comment on above: Performed By: #### 2 902210, 7497739307, 1079834, 5087831, 16275676, 9127572, 5569238863, 8397532, 2532694666, 9800031, 5419757673 #### [facility] (DEFAULT) [address] [place] [address] Baso Abs# 0.1 x10 Normal 0.0-0.2 [facility] Comment on above: Performed By: #### 2 930929, 7030465143, 8577485, 1860238, 37414275, 1737016, 7533190487, 0842010, 1792233233, 8130772, 0690971577 #### [facility] (DEFAULT) [address] [place] [address] Basophils/100 WBC (Bld) 0.6 % Normal 0.2-2.0 [facility] Comment on above: Performed By: #### 2 381658, 9890324894, 3070872, 4097764, 76391501, 3460589, 9402793041, 8310160, 4021719484, 8041171, 1920726744 #### [facility] (DEFAULT) [address] [place] [address] Eos Abs# 0.1 x10 Normal 0.0-0.4 [facility] Comment on above: Performed By: #### 2 321931, 7400867087, 7856227, 8393507, 03741533, 5581850, 2329655720, 5280414, 0532234678, 4367640, 3587426959 #### [facility] (DEFAULT) [address] [place] [address] Eosinophils/100 WBC (Bld) 0.8 % Low 0.9-4.0 [facility] Comment on above: Performed By: #### 2 783146, 0360026749, 0479942, 6256960, 79573923, 6363010, 8286098413, 7259312, 6522337238, 5383388, 2455740742 #### [facility] (DEFAULT) [address] [place] [address] Lymphocytes (Bld) [#/Vol] 2.6 x10 Normal 1.3-2.9 [facility] Comment on above: Performed By: #### 2 990704, 9735798611, 1557854, 8085575, 91681038, 5455439, 5162809011, 9547039, 8859148545, 6201643, 4301776206 #### [facility] (DEFAULT) [address] [place] [address] Lymphocytes/100 WBC (Bld) 27 % Normal 14-48 [facility] Comment on above: Performed By: #### 2 030451, 1843866183, 5517199, 7392931, 30389222, 4102018, 1031280550, 8030854, 5964265474, 5139445, 3423875280 #### [facility] (DEFAULT) [address] [place] [address] Benzie Abs# 0.5 x10 Normal 0.0-0.8 [facility] Comment on above: Performed By: #### 2 861803, 2919066184, 5090753, 7826852, 44617420, 7210514, 3143852733, 5137925, 8213356722, 1648691, 2097854671 #### [facility] (DEFAULT) [address] [place] [address] Neut Abs# 6.3 x10 Normal 1.5-9.2 [facility] Comment on above: Performed By: #### 2 314179, 1770684823, 3231241, 8080710, 70921376, 1147217, 2721685032, 5128554, 5377176308, 6081162, 0597489707 #### [facility] (DEFAULT) [address] [place] [address] Neutrophils/100 WBC (Bld) 66 % Normal 44-88 [facility] Comment on above: Performed By: #### 2 554023, 4695432211, 6344444, 3799959, 30372425, 8254179, 2392918025, 8178587, 7433686530, 1366274, 7761856650 #### [facility] (DEFAULT) [address] [place], [place] [address] 06-11-2018 ALT [Catalytic activity/Vol] 23.0 U/L Normal 14.0-54.0 [facility] Comment on above: Performed By: #### 2 539200, 2234766056, 6366340, 8065386, 46652248, 2350439, 1063069109, 3736095, 7507215012, 9994565, 7622398072 #### [facility] (DEFAULT) [address] [place] [address] Sheri 06-11-2018 AST [Catalytic activity/Vol] 19 U/L Normal 15-41 [facility] Comment on above: Performed By: #### 2 863096, 1496123960, 8198949, 1822868, 05434532, 8258445, 4890766891, 5970863, 7706720047, 8364481, 5830558506 #### [facility] (DEFAULT) [address] [place] [address] BMP Standardon 06-11-2018 eGFR Non AA >60 [facility] Comment on above: Performed By: #### 2 744983, 8521090493, 4901112, 2689462, 88650501, 6931986, 1868547786, 2152330, 9700811894, 9909059, 4243801753 #### [facility] (DEFAULT) [address] [place] [address] 19359 eGFR AA >60 [facility] Comment on above: Result Comment: [employer] cynthia Kidney disease could be indicated at eGFRs of less than 60 ml/min/1.73m2. Kidney Failure is indicated at less than 15 ml/min/1.73m2 Performed By: #### 2 095363, 4819488047, 4475287, 0618843, 14166348, 2713740, 4310031000, 3911398, 2702147406, 4980783, 7525571499 #### [facility] (DEFAULT) [address] [place] [address] Anion gap [Moles/Vol] 12.0 mmol/L Normal 5.0-19.0 [facility] Comment on above: Performed By: #### 2 285834, 3748373359, 2715540, 2254828, 04518799, 1965389, 0146858844, 1106218, 1641328637, 9808937, 5779887713 #### [facility] (DEFAULT) [address] [place] [address] 53003 Calcium [Mass/Vol] 9.0 mg/dL Normal 8.9-10.3 [facility] Comment on above: Performed By: #### 2 014782, 5989379856, 5207868, 5139532, 06621347, 3181853, 4024775714, 1996818, 2367628742, 7303940, 5663235102 #### [facility] (DEFAULT) [address] [place] [address] 45596 Chloride [Moles/Vol] 103 mmol/L Normal 101-111 [facility] Comment on above: Performed By: #### 2 [id number], [id number], [id number], 1141504, [id number], 5203088, [id number], 9509455, [id number], [id number], [id number] #### [facility] (DEFAULT) [address] [place] [address] 17831 CO2 [Moles/Vol] 26 mmol/L Normal 21-32 [facility] Comment on above: Performed By: #### 2 [id number], [id number], [id number], [id number], [id number], 7609545, [id number], 3559672, [id number], 1423190, [id number] #### [facility] (DEFAULT) [address] [place] [address] 50810 Creatinine [Mass/Vol] 0.86 mg/dL Normal 0.60-1.30 [facility] Comment on above: Performed By: #### 2 [id number], [id number], 0615547, 4982611, 81762286, 6495085, 5614178279, 9445134, 5152644474, 5254876, [id number] #### [facility] (DEFAULT) [address] [place] [address] 55952 Glucose [Mass/Vol] 278.0 mg/dL High 74.0-118.0 [facility] Comment on above: Performed By: #### 2 547472, [id number], 3676753, 5636525, 06471981, 8274510, 2517487592, 6771499, 3845338452, 9128026, [id number] #### [facility] (DEFAULT) [address] [place] [address] 58348 Osmolality [Osmolality] 286 mOsm/L [facility] Comment on above: Performed By: #### 2 315395, [id number], 4677977, 2258121, 80142624, 8977297, 4126986582, 0749119, 9323470944, 3178880, 8915045195 #### [facility] (DEFAULT) [address] [place] [address] 51906 Potassium [Moles/Vol] 4.0 mmol/L Normal 3.6-5.1 [facility] Comment on above: Performed By: #### 2 088169, [id number], 9996923, 1334773, 12646735, 1787507, 1712822840, 9320559, 5258143156, 8077649, [id number] #### [facility] (DEFAULT) [address] [place] [address] 61236 Sodium [Moles/Vol] 137.0 mmol/L Normal 136.0-144.0 [facility] Comment on above: Performed By: #### 2 315116, [id number], 2570146, 5321539, 96957111, 1047917, 9502489821, 9977987, 6528810398, 5045158, [id number] #### [facility] (DEFAULT) [address] [place] [address] 72308 Urea nitrogen [Mass/Vol] 18 mg/dL Normal 8-26 [facility] Comment on above: Performed By: #### 2 955281, [id number], 6965968, 9558527, 96686814, 3513353, 5796587238, 7102557, 3015359081, 2715960, 9532944299 #### [facility] (DEFAULT) [address] [place] [address] 27325 Urea nitrogen/Creatinine [Mass ratio] 21.0 mg/mg High 4.6-16.2 [facility] Comment on above: Performed By: #### 2 210363, [id number], 8184869, 3995559, 05536954, 7649004, 4246196397, 7055998, 3625771067, 3224141, 6460237240 #### [facility] (DEFAULT) [address] [place] [address] 95747 BNP.on 06-11-2018 Internal Control Pass Normal [facility] Comment on above: Performed By: #### 2 316062, [id number], 5537906, 4498866, 58417103, 1788294, 1248289096, 7985503, 0575689595, 6000061, 0615374570 #### [facility] (DEFAULT) [address] [place] [address] 30462 Natriuretic peptide B (Bld) [Mass/Vol] 8.5 pg/mL Normal 0.0-100.0 [facility] Comment on above: Result Comment: BNP results greater than 100 pg/mL are considered abnormal and suggestive of patients with CHF. Higher BNP concentrations measured in the first 72 hours after an acute coronary syndorme are associated with an increased risk of , myocardial infarction, and CHF. Performed By: #### 2 346084, 3218492408, 6518733, 8035378, 77136701, 3514709, 7780077500, 8560973, 9835841514, 1783992, 4996669344 #### [facility] (DEFAULT) [address] [place] [address] 73240 CBC w/ Auto Diffon 8 Erythrocyte distribution width (RBC) [Ratio] 14.3 % Normal 11.5-15.0 [facility] Comment on above: Performed By: #### 2 123101, 3830800194, 0341647, 7887778, 70029055, 4265891, 3485218307, 3078188, 8466216471, 9191262, 9868578671 #### [facility] (DEFAULT) [address] [place] [address] Hematocrit (Bld) [Volume fraction] 41.3 % High 33.7-40.4 [facility] Comment on above: Performed By: #### 2 648184, 4667616211, 3268182, 0330933, 97756005, 0662595, 2713515462, 5093628, 8305878990, 0290213, 8880278368 #### [facility] (DEFAULT) [address] [place] [address] Hemoglobin (Bld) [Mass/Vol] 14.5 g/dL Normal 11.3-15.9 [facility] Comment on above: Performed By: #### 2 919130, 6478310228, 1955019, 8209314, 06036307, 8330394, 3964113790, 7057792, 4238718566, 4836421, 0993256303 #### [facility] (DEFAULT) [address] [place] [address] Man Diff? Auto Normal [facility] Comment on above: Performed By: #### 2 782786, 4058350623, 9948702, 5693049, 15101518, 0959338, 7172783660, 4826783, 0918422697, 2345961, 1033509799 #### [facility] (DEFAULT) [address] [place] [address] MCH (RBC) [Entitic mass] 30 pg Normal 24-34 [facility] Comment on above: Performed By: #### 2 165199, 2912944661, 7182433, 6179714, 58195605, 2200669, 4680589167, 5769746, 4348377849, 6033028, 0151196424 #### [facility] (DEFAULT) [address] [place] [address] 52645 MCHC (RBC) [Mass/Vol] 35 g/dL Normal 26-37 [facility] Comment on above: Performed By: #### 2 597456, 1684938084, 4752327, 8623072, 05570868, 0929026, 6515445942, 4504718, 0609014845, 0520169, 6749651801 #### [facility] (DEFAULT) [address] [place] [address] 00188 MCV (RBC) [Entitic vol] 84 fL Normal 81-100 [facility] Comment on above: Performed By: #### 2 087214, 7972068026, 6517731, 3138873, 21720946, 3600475, 1096824752, 5924840, 2290264078, 8295159, 7005540848 #### [facility] (DEFAULT) [address] [place], [place] [address] Platelet mean volume (Bld) [Entitic vol] 10.7 fL High 6.3-10.2 [facility] Comment on above: Performed By: #### 2 377922, 1600548372, 3714037, 6430878, 64165713, 5515933, 4317472648, 6451814, 2144250968, 4970329, 5758572876 #### [facility] (DEFAULT) [address] [place] [address] 37739 Platelets (Bld) [#/Vol] 259 x10 Normal 138-427 [facility] Comment on above: Performed By: #### 2 815976, 1522393061, 0212215, 0911479, 35020672, 9376508, 1410187755, 9085399, 7929623324, 6846462, 8112128186 #### [facility] (DEFAULT) [address] [place] [address] 58051 RBC (Bld) [#/Vol] 4.92 x10 Normal 3.70-5.30 [facility] Comment on above: Performed By: #### 2 646434, 5031809223, 6615673, 4158926, 59490322, 7493447, 4964523283, 7152574, 6641706473, 5634575, 9161947244 #### [facility] (DEFAULT) [address] [place] [address] WBC (Bld) [#/Vol] 9.6 x10 Normal 3.5-10.5 [facility] Comment on above: Performed By: #### 2 255525, 4813158639, 7726552, 5262271, 55328276, 5368988, 9103709793, 4349713, 9846347962, 3916052, 1308086268 #### [facility] (DEFAULT) [address] [place] [address] 90489 CKon 06-11-2018 Total CK 56 IU/L Normal 38-234 [facility] Comment on above: Performed By: #### 2 510902, 6463919916, 4815095, 2904175, 11800157, 2135578, 6544699735, 4743589, 2042934376, 3176125, 8485625225 #### [facility] (DEFAULT) [address] [place] [address] 06224 D-Dimeron 06-11-2018 D-Dimer 0.34 mg/L FEU Normal 0.19-0.50 [facility] Comment on above: Result Comment: The INNOVANCE D-Dimer assay (Cutoff Value of > 0.50) is intended for the use as an aid in the diagnosis of venous thromboembolism (VTE) deep vein thrombosis (DVT) or pulmonary embolism (PE). The measurement of D-Dimer should not be used as an aid in the diagnosis of VTE in patients with: ? Therapeutic dose anticoagulant therapy for >24 hours ? Fibrinolytic therapy within previous 7 days ? Trauma or surgery within previous 4 weeks ? Disseminated malignancies ? Aortic aneurysm ? Sepsis, sever infections, pneumonia, severe skin infections ? Liver cirrhosis ? Performed By: #### 2 003532, 8769350954, 9187283, 2606293, 92586391, 5589458, 3267730827, 1891931, 7235882987, 2544291, 4437854726 #### [facility] (DEFAULT) [address] [place] [address] 18044 HgbA1c Standardon 06-11-2018 .Hb 15.1 [facility] Comment on above: Performed By: #### 2 378922, 1395646448, 2116516, 2561769, 77739529, 6796498, 9021374130, 0422289, 7392077523, 9367156, 3610215635 #### [facility] (DEFAULT) [address] [place] [address] Glucose [Mass/Vol] 225 mg/dL [facility] Comment on above: Performed By: #### 2 919905, 3758258656, 6263995, 9505142, 26705023, 8866141, 6536177424, 7066229, 9820293781, 4489514, 0020676964 #### [facility] (DEFAULT) [address] [place], [place] [address] HbA1c (Bld) [Mass fraction] 9.5 % High 4.6-6.2 [facility] Comment on above: Performed By: #### 2 053553, 1362210207, 5716553, 8314352, 90822606, 8752318, 7137452953, 8145514, 0658032912, 1142739, 8118866835 #### [facility] (DEFAULT) [address] [place] [address] 57437 HbA1c (Bld) [Mass fraction] 1.21 g/dL [facility] Comment on above: Performed By: #### 2 020659, 9382733086, 5608082, 7140243, 17740532, 6362291, 6947655905, 9764161, 0197611242, 1484809, 7445240112 #### [facility] (DEFAULT) [address] [place] [address] 41593 Lipid Panel Standardon 06-11 Cholesterol [Mass/Vol] 195.0 mg/dL Normal 66.0-200.0 [facility] Comment on above: Result Comment: Yan rable - Less than 200 mg/dL Borderline high risk - 200-239 mg/dL High risk - 240 mg/dL and over. Performed By: #### 2 613807, 1392048351, 2590850, 1389915, 83284013, 4683783, 7328442777, 5832868, 4613419897, 8660174, 9853589601 #### [facility] (DEFAULT) [address] [place] [address] Cholesterol in HDL [Mass/Vol] 47 mg/dL Normal 40-71 [facility] Comment on above: Result Comment: High risk - <40 mg/dL. Performed By: #### 2 661046, 6739073568, 6659939, 1147456, 70141920, 3135771, 0525298003, 0576444, 3520442582, 3037495, 9739008065 #### [facility] (DEFAULT) [address] [place] [address] Cholesterol in LDL [Mass/Vol] 109 mg/dL High 1-100 [facility] Comment on above: Result Comment: Opti mal - Less than 100 mg/dL Borderline high risk - 130-159 mg/dL High risk - 160-189 mg/dL. Performed By: #### 2 303755, 1973881234, 4697562, 6459722, 66488575, 7640716, 3984155593, 4816379, 0468563463, 4336441, 0303541935 #### [facility] (DEFAULT) [address] [place] [address] 99192 Cholesterol.total/C holesterol in HDL [Mass ratio] 4.2 {ratio} Normal 0.0-4.5 [facility] Comment on above: Performed By: #### 2 599268, 5725302222, 8933457, 6165075, 74706663, 3989367, 2238523857, 4036969, 1511773331, 7192570, 8483091002 #### [facility] (DEFAULT) [address] [place] [address] 15457 Triglyceride [Mass/Vol] 199.0 mg/dL High 0.0-150.0 [facility] Comment on above: Performed By: #### 2 874097, 6281483717, 2529717, 7405201, 47742057, 6792476, 2158911519, 3182517, 7652296034, 2847921, 3433368507 #### [facility] (DEFAULT) [address] [place] [address] VLDL. 40 mg/dL Normal 5-40 [facility] Comment on above: Performed By: #### 2 192160, 9795304337, 9593676, 6485804, 41541755, 1749744, 6000514316, 9342209, 1164942396, 8340869, 1770023462 #### [facility] (DEFAULT) [address] [place] [address] Vit D25 OHon 06-11-2018 Vitamin D 25 OH 96 ng/mL [facility] Comment on above: Result Comment: In , the Clinical Guidelines Subcommittee of the Endocrine Society Task Force established the guidelines below for recommended serum 25(OH) vitamin D levels. Vitamin D Status 25 (OH) Vitamin D Concentration Range (ng/mL) 25 (OH) Vitamin D Concentration Range (nmol/L) Deficient < 20 < 50 Insufficient 20 to < 30 50 to < 75 Sufficient 30 to 100 75 to 250 Upper Safety Limit >100 >250 Reference Valentín ZAZUETA et al. Evaluation, Treatment, and Prevention of Vitamin D Deficiency: An Endocrine Society Clinical Practice Guideline, J Clin Endocrinol Metab 2011; 96 (7): 7565-0708. Performed By: #### 2 979967, 7040192328, 1390741, 1309366, 06404090, 9156321, 0656480556, 9180570, 9811057672, 2848098, 5041931367 #### [facility] (DEFAULT) [address] [place] [address] 27251 XR Spine Thoracic 3 Viewson 06-11-2018 XR Spine Thoracic 3 Views SPINE THORACIC THREE VIEWS AND CHEST TWO VIEWS CLINICAL DATA: Right side chest pain and mid back pain for the past six weeks. Three views of the thoracic spine were obtained to include AP, lateral and directed lateral cervicothoracic junction views, additional lateral thoracolumbar junction view was obtained and included in the study. The study was compared to the prior exam dated 11/03/2016. Vertebral body heights are grossly well maintained. There is no significant disc space narrowing. Areas of mild anterior spurring are noted at multiple levels. Pedicles are intact. No definite acute fracture or dislocation is seen. There is slight convexity of the thoracic spine to the right. There is finding compatible with partially visualized gallstone overlying the right upper quadrant of the abdomen. IMPRESSION: 1. THORACIC SPINE STUDY DEMONSTRATES DEGENERATIVE CHANGES DESCRIBED, SLIGHT CONVEXITY TO THE RIGHT. 2. FOLLOW-UP NEEDED. PA and lateral views of the chest were obtained and compared to the prior exam dated 12/09/2012. Heart and mediastinal contours are unremarkable in appearance. No acute infiltrate or consolidations are seen. There are mild degenerative changes in the dorsal spine. There is calcific density overlying the right upper quadrant of the abdomen likely representing gallstone. IMPRESSION: NO ACUTE PROCESS SEEN IN THE CHEST. Yury Hannah MD JOB #: [id number] bf Final Dictated by: Yury Hannah MD Dictated DT/TM: 06/11/18 9:39 Signed (Electronic Signature): Yury Hannah MD 06/11/18 12:46 p Technologist: Sandeep AHMADI [facility] Vital Signs Date Time Vital Sign Value Performing Clinician Faci lity 08-13-2024 13:01-0500 Body height 165.1 cm Corrine Teague RECORDS TECH Work Phone: [facility] 08-13-2024 13:01-0500 Body mass index (BMI) [Ratio] 29.52 kg/m2 Corrine Teague RECORDS TECH Work Phone: [facility] 08-13-2024 13:01-0500 Body temperature 98.49 [degF] Corrine Zahida RECORDS TECH Work Phone: [facility] 08-13-2024 13:01-0500 Body weight 80.47 kg Corrine Zahida RECORDS TECH Work Phone: [facility] 08-13-2024 13:01-0500 Diastolic blood pressure 60 mm[Hg] Corrine Teague RECORDS TECH Work Phone: [facility] 08-13-2024 13:01-0500 Heart rate 64 /min Corrine Aichholz RECORDS TECH Work Phone: [facility] 08-13-2024 13:01-0500 Respiratory rate 19 /min Corrine Galloholz RECORDS TECH Work Phone: [facility] 08-13-2024 13:01-0500 SaO2% (BldA) [Mass fraction] 99 % Corrine Aichholz RECORDS TECH Work Phone: [facility] 08-13-2024 13:01-0500 Systolic blood pressure 98 mm[Hg] Corrine Aichholz RECORDS TECH Work Phone: [facility] 06-25-2024 13:39-0400 Body mass index (BMI) [Ratio] 29.19 kg/m2 Corrine Aichholz RECORDS TECH Work Phone: [facility] 06-25-2024 13:39-0400 Body temperature 98.6 [degF] Corrine Aichholz RECORDS TECH Work Phone: [facility] 06-25-2024 13:39-0400 Body weight 79.56 kg Corrine Aichholz RECORDS TECH Work Phone: [facility] 06-25-2024 13:39-0400 Diastolic blood pressure 78 mm[Hg] Corrine Aichholz RECORDS TECH Work Phone: [facility] 06-25-2024 13:39-0400 Heart rate 71 /min Corrine Aichholz RECORDS TECH Work Phone: [facility] 06-25-2024 13:39-0400 Respiratory rate 18 /min Corrine Aichholz RECORDS TECH Work Phone: [facility] 06-25-2024 13:39-0400 SaO2% (BldA) [Mass fraction] 95 % Corrine Aichholz RECORDS TECH Work Phone: [facility] 06-25-2024 13:39-0400 Systolic blood pressure 116 mm[Hg] Corrine Aichholz RECORDS TECH Work Phone: [facility] 05-14-2024 13:13-0400 Body height 165.1 cm Corrine Fehholz RECORDS TECH Work Phone: [facility] 05-14-2024 13:13-0400 Body mass index (BMI) [Ratio] 29.29 kg/m2 Corrine Teague RECORDS TECH Work Phone: [facility] 05-14-2024 13:13-0400 Body temperature 98.1 [degF] Corrine Teague RECORDS TECH Work Phone: [facility] 05-14-2024 13:13-0400 Body weight 79.83 kg Corrine Teague RECORDS TECH Work Phone: [facility] 05-14-2024 13:13-0400 Diastolic blood pressure 80 mm[Hg] Corrine Teague RECORDS TECH Work Phone: [facility] 05-14-2024 13:13-0400 Heart rate 70 /min Corrine Teague RECORDS TECH Work Phone: [facility] 05-14-2024 13:13-0400 Respiratory rate 18 /min Corrine Teague RECORDS TECH Work Phone: [facility] 05-14-2024 13:13-0400 SaO2% (BldA) [Mass fraction] 95 % Corrine Teague RECORDS TECH Work Phone: [facility] 05-14-2024 13:13-0400 Systolic blood pressure 124 mm[Hg] Corrine Teague RECORDS TECH Work Phone: [facility] 10-05-2023 16:17-0500 Body height 142.2 cm Corrine Teague RECORDS TECH Work Phone: [facility] 10-05-2023 16:17-0500 Body mass index (BMI) [Ratio] 32.55 kg/m2 Corrine Teague RECORDS TECH Work Phone: [facility] 10-05-2023 16:17-0500 Body temperature 97.81 [degF] Corrine Teague RECORDS TECH Work Phone: [facility] 10-05-2023 16:17-0500 Body weight 65.86 kg Corrine Zahida RECORDS TECH Work Phone: [facility] 10-05-2023 16:17-0500 Diastolic blood pressure 80 mm[Hg] Corrine Zahida RECORDS TECH Work Phone: [facility] 10-05-2023 16:17-0500 Heart rate 98 /min Corrine Zahida RECORDS TECH Work Phone: [facility] 10-05-2023 16:17-0500 Respiratory rate 18 /min Corrine Zahida RECORDS TECH Work Phone: [facility] 10-05-2023 16:17-0500 SaO2% (BldA) [Mass fraction] 97 % Corrine Zahida RECORDS TECH Work Phone: [facility] 10-05-2023 16:17-0500 Systolic blood pressure 140 mm[Hg] Corrine Zahida RECORDS TECH Work Phone: [facility] Healthcare Encounters Encounter Date Encounter Type Care Provider Facility Start: 10-07-2024 End: 10-07-[address] [facility] Start: 09-18-2024 End: 09-18-2024 Clinisync Result Encounter Generic External Data Provider [facility] External Department Unsolicited Start: 09-18-2024 End: 09-18-2024 Clinisync Result Encounter Generic External Data Provider [facility] External Department Unsolicited Start: 08-13-2024 End: 08-13-2024 Bamboo flowsheet Corrine Teague RECORDS TECH Work Phone: [facility] Start: 08-13-2024 End: 08-13-2024 Bamboo flowsheet Corrine Teague RECORDS TECH Work Phone: [facility] Start: 08-13-2024 End: 08-13-2024 ambulatory CORRINE ZAHIDA Not Available Start: 08-13-2024 End: 08-13-2024 Office outpatient visit 25 minutes Corrine Teague RECORDS TECH Work Phone: [facility] Comment on above: Eye pain, bilateral (Primary Dx); Benign essential hypertension (CMS/HCC); Type 2 diabetes mellitus with hyperglycemia, with long-term current use of insulin (CMS/HCC); Mixed hyperlipidemia (CMS/HCC); Anxiety and depression (CMS/HCC); Asthma, unspecified asthma severity, unspecified whether complicated, unspecified whether persistent ([facility]/HCC); Ankylosing spondylitis of lumbar region ([facility]); Gastroesophageal reflux disease without esophagitis; Overweight (BMI 25.0-29.9); Diabetic polyneuropathy associated with type 2 diabetes mellitus ([facility]/HCC) Start: 07-03-2024 End: 07-03-2024 ambulatory [facility] Start: 06-27-2024 End: 06-27-2024 ambulatory [facility] Start: 06-25-2024 End: 06-25-2024 Bamboo flowsheet Corrine Zahida RECORDS TECH Work Phone: [facility] Start: 06-25-2024 End: 06-25-2024 Bamboo flowsheet Corrine Zahida RECORDS TECH Work Phone: [facility] Start: 06-25-2024 End: 06-25-2024 Office outpatient visit 25 minutes Corrine Teague RECORDS TECH Work Phone: [facility] Comment on above: Type 2 diabetes harvey itus with hyperglycemia, with long-term current use of insulin ([facility]) (Primary Dx); Abdominal pain, RLQ; Benign essential hypertension (CMS/HCC); Diabetic mononeuropathy associated with type 2 diabetes mellitus (HCC) ([facility]); Overweight (BMI 25.0-29.9); Ankylosing spondylitis of lumbar region ([facility]/HCC) Start: 06-25-2024 End: 06-25-2024 ambulatory CORRINE AICHHOLZ Not Available Start: 06-21-2024 End: 06-21-2024 Refill Corrine Haiderz RECORDS TECH Work Phone: [facility] Comment on above: Type 2 diabetes harvey itus with hyperglycemia, with long-term current use of insulin ([facility]/HCC) Start: 06-06-2024 End: 06-06-2024 Refill Corrinefrancisco javier Teague RECORDS TECH Work Phone: [facility] Comment on above: Diabetic mononeuropa thy associated with type 2 diabetes mellitus (HCC) (CMS/HCC); Gastroesophageal reflux disease without esophagitis Start: 05-14-2024 End: 05-14-2024 Bamboo flowsheet Corrine Aichholz RECORDS TECH Work Phone: [facility] Start: 05-14-2024 End: 05-14-2024 Bamboo flowsheet Corrine Aichholz RECORDS TECH Work Phone: [facility] Start: 05-14-2024 End: 05-14-2024 Office outpatient visit 25 minutes Corrinefrancisco javier Teague RECORDS TECH Work Phone: [facility] Comment on above: Type 2 diabetes harvey itus with hyperglycemia, with long-term current use of insulin (CMS/[facility]) (Primary Dx); Overweight (BMI 25.0-29.9); Dental infection; Sebaceous cyst of axilla; Upper respiratory tract infection, unspecified type Start: 05-14-2024 End: 05-14-2024 ambulatory CORRINE AICHHOLZ Not Available Start: 05-07-2024 End: 05-07-2024 [facility] Start: 05-07-2024 End: 05-07-2024 Bamboo flowsheet [facility] Work Phone: [facility] Start: 05-07-2024 End: 05-08-2024 Refill Agustin Swanson MD Work Phone: [facility] Comment on above: Ankylosing spondylit is of lumbar region (CMS/HCC) (Primary Dx); Anxiety and depression (CMS/HCC); Type 2 diabetes mellitus with hyperglycemia, with long-term current use of insulin (CMS/HCC); Benign essential hypertension (CMS/HCC); Asthma, unspecified asthma severity, unspecified whether complicated, unspecified whether persistent (CMS/[facility]); Mixed hyperlipidemia ([facility]) Start: 05-07-2024 End: 05-07-2024 Office outpatient new 30 minutes Kojoanna Calabrese APOLLO Work Phone: [facility] Comment on above: Melanocytic nevus of right lower extremity (Primary Dx); Personal history of malignant melanoma of skin; Epidermal inclusion cyst; Acrochordon; Melanocytic nevus of right shoulder; Xerosis cutis; Pain Start: 05-07-2024 End: 05-07-2024 ambulatory KOJO NORTHEIM Not Available Start: 03-26-2024 End: 03-26-2024 ambulatory CORRINE AICHHOLZ Not Available Start: 02-29-2024 End: 02-29-2024 ambulatory CORRINE AICHHOLZ Not Available Start: 02-29-2024 Patient encounter [facility] Work Phone: [facility] Start: 02-29-2024 End: 02-29-2024 ambulatory [facility] Start: 02-22-2024 End: 02-22-2024 ambulatory CORRINE AICHHOLZ Not Available Start: 01-24-2024 End: 01-24-2024 ambulatory CORRINE AICHHOLZ Not Available Start: 11-15-2023 End: 11-15-2023 [facility] Start: 10-26-2023 End: 10-26-2023 ambulatory CORRINE AICHHOLZ Not Available Start: 10-05-2023 End: 10-05-2023 ambulatory CORRINE AICHHOLZ Not Available Start: 10-05-2023 End: 10-05-2023 Office outpatient visit 25 minutes Corrine Aichholz RECORDS TECH Work Phone: [facility] Comment on above: Diabetes mellitus du e to underlying condition with diabetic polyneuropathy, with long-term current use of insulin ([facility]) (Primary Dx); Chronic obstructive pulmonary disease, unspecified COPD type ([facility]); Benign essential hypertension ([facility]); Gastroesophageal reflux disease without esophagitis; Type 2 diabetes mellitus with hyperglycemia, with long-term current use of insulin (CMS/[facility]); Anxiety and depression (CMS/[facility]); Ankylosing spondylitis of lumbar region ([facility]); Yeast infection involving the vagina and surrounding area; snf (current) use of insulin (Z79.4) Start: 10-05-2023 Bamboo flowsheet Corrine Zahida RECORDS TECH Work Phone: [facility] Start: 10-05-2023 Bamboo flowsheet Corrine Zahida RECORDS TECH Work Phone: [facility] Start: 10-05-2023 Telephone encounter Corrine Fenando twila RECORDS TECH Work Phone: [facility] Start: 01-12-2023 End: 01-13-[address] SHARAN RAJAN . Facility: Start: 01-03-2023 End: 01-04-[address] DOCTOR SCHMIDT Facility:[facility] Start: 12-29-2022 End: 12-30-[address] DOCTOR SCHMIDT Facility:[facility] Start: 12-12-2022 End: 12-12-[address] DOCTOR SCHMIDT Facility:[facility] Start: 09-27-2022 End: 09-27-[address] DOCTOR SCHMIDT Facility:[facility] Start: 04-28-2022 End: 04-29-2022 ambulatory WILFRED CHAVIRA Facility:[facility] Start: 04-27-2022 End: 04-28-2022 ambulatory WILFRED CHAVIRA Facility:[facility] Start: 04-06-2022 End: 04-07-2022 ambulatory WILFRED CHAVIRA Facility:[facility] Start: 03-22-[address] DOCTOR SCHMIDT Facility :[facility] Start: 02-24-2022 End: 02-25-[address] SHARAN RAJAN . Facility:[facility] Start: 02-04-2022 End: 02-05-2022 ambulatory LIS TEAGUE Facility:[facility] Start: 01-21-2022 End: 01-22-2022 ambulatory LIS TEAGUE Facility: Procedures Date Procedure Procedure Detail Performing Clinician Start: 09-18-2024 ALL BLOOD GAS (VENOUS) Generic External Data Provider Start: 09-18-2024 ALL HEMOGLOBIN Generic External Data Provider Start: 07-04-2024 Mammography Corrine mattson RECORDS TECH Work Phone: Start: 05-25-2023 Mammography Corrine mattson RECORDS TECH Work Phone: Start: 09-04-2022 Colonoscopy Corrine mattson RECORDS TECH Work Phone: Plan of Treatment Date Care Activity Detail Author Start: 09-04-2032 Screening for malign ant neoplasm of colon [facility] Start: 07-04-2025 Screening for malign ant neoplasm of breast Mammogram [facility] Start: 02-28-2025 Medicare Annual Wellness (AWV) Medicare Annual Wellness (AWV) [facility] Start: 11-14-2024 Urine screening for protein Diabetes: Urine Protein Screening [facility] Start: 09-27-2024 Hemoglobin A1c measurement Diabetes: Hemoglobin A1C [facility] Start: 07-25-2024 End: 07-25-2024 Patient encounter procedure 07/25/2024 1:00 PM EST Office Visit [facility] [address] [place] [address] Corrine Teague NP [address] [place] [place] [address] [facility] Start: 06-25-2024 End: 06-25-2025 Bacteria identified in Urine by Culture Urine culture (clean catch) Microbiology Routine Abdominal pain, RLQ Expected: 06/25/2024 (Approximate), Expires: 06/25/2025 [facility] Comment on above: Expected: 06/25/2024 (Approximate), Expires: 06/25/2025 Start: 06-25-2024 End: 06-25-2025 Basic metabolic 1998 panel - Serum or Plasma Basic metabolic panel Lab Routine Type 2 diabetes mellitus with hyperglycemia, with long-term current use of insulin ([facility]) Expected: 06/25/2024 (Approximate), Expires: 06/25/2025 [facility] Work Phone: Comment on above: Expected: 06/25/2024 (Approximate), Expires: 06/25/2025 Start: 06-25-2024 End: 06-25-2025 CBC W Auto Differential panel - Blood CBC and differential Lab Routine Abdominal pain, RLQ Expected: 06/25/2024 (Approximate), Expires: 06/25/2025 [facility] Comment on above: Expected: 06/25/2024 (Approximate), Expires: 06/25/2025 Start: 06-25-2024 End: 06-25-2025 Hemoglobin A1c/Hemoglobin.total in Blood Hemoglobin A1c Lab Routine Type 2 diabetes mellitus with hyperglycemia, with long-term current use of insulin ([facility]) Expected: 06/25/2024 (Approximate), Expires: 06/25/2025 [facility] Comment on above: Expected: 06/25/2024 (Approximate), Expires: 06/25/2025 Start: 06-25-2024 End: 06-25-2025 Urinalysis complete panel - Urine Urinalysis with reflex microscopic (clean catch) Lab Routine Abdominal pain, RLQ Expected: 06/25/2024 (Approximate), Expires: 06/25/2025 [facility] Comment on above: Expected: 06/25/2024 (Approximate), Expires: 06/25/2025 Start: 06-25-2024 End: 06-25-2024 Patient encounter procedure [facility] Comment on above: Type 2 diabetes harvey itus with hyperglycemia, with long-term current use of insulin ([facility]) (Primary Dx) Start: 05-31-2024 Hemoglobin A1c measurement Diabetes: Hemoglobin A1C [facility] Start: 05-25-2024 Screening for malign ant neoplasm of breast Mammogram [facility] Start: 05-14-2024 End: 05-14-2024 Patient encounter procedure [facility] Comment on above: Arrived Start: 05-08-2024 End: 05-08-2024 Patient encounter procedure 05/08/2024 1:20 PM EDT Office Visit [facility] [address] [place] [address] Corrine Teague NP [address] [place] [address] [facility] Start: 05-07-2024 End: 05-07-2024 Patient encounter procedure 05/07/2024 1:30 PM EDT Office Visit [facility] [address] [place] [address] [facility] [address] [place], [place] [address] Malignant melanoma, unspecified site (CMS/HCC) [facility] Comment on above: Malignant melanoma, unspecified site (CMS/HCC) Start: 10-26-2023 End: 10-26-2023 Patient encounter procedure 10/26/2023 2:40 PM EST Office Visit [facility] [address] [place] [id number] Corrine Teague NP [address] [place] [address] [facility] Start: 10-05-2023 End: 10-05-2024 CBC W Auto Differential panel - Blood CBC and differential Lab Routine Chronic obstructive pulmonary disease, unspecified COPD type (CMS/HCC) Expected: 10/05/2023 (Approximate), Expires: 10/05/2024 [facility] Work Phone: Comment on above: Expected: 10/05/2023 (Approximate), Expires: 10/05/2024 Start: 10-05-2023 End: 10-05-2024 Comprehensive metabolic 2000 panel - Serum or Plasma Comprehensive metabolic panel Lab Routine Benign essential hypertension (CMS/HCC) Gastroesophageal reflux disease without esophagitis Type 2 diabetes mellitus with hyperglycemia, with long-term current use of insulin (CMS/HCC) Expected: 10/05/2023 (Approximate), Expires: 10/05/2024 [facility] Comment on above: Expected: 10/05/2023 (Approximate), Expires: 10/05/2024 Start: 10-05-2023 End: 10-05-2024 Hemoglobin A1c measurement Hemoglobin A1c Lab Routine Type 2 diabetes mellitus with hyperglycemia, with long-term current use of insulin ([facility]) Expected: 10/05/2023 (Approximate), Expires: 10/05/2024 [facility] Comment on above: Expected: 10/05/2023 (Approximate), Expires: 10/05/2024 Start: 10-05-2023 End: 10-05-2024 Lipid 1996 panel - Serum or Plasma Lipid panel Lab Routine Type 2 diabetes mellitus with hyperglycemia, with long-term current use of insulin ([facility]) Expected: 10/05/2023 (Approximate), Expires: 10/05/2024 [facility] Comment on above: Expected: 10/05/2023 (Approximate), Expires: 10/05/2024 Start: 10-05-2023 End: 10-05-2024 Microalbumin/Creatinine panel in random Urine Microalbumin / creatinine, urine ratio Lab Routine Type 2 diabetes mellitus with hyperglycemia, with long-term current use of insulin ([facility]) Expected: 10/05/2023 (Approximate), Expires: 10/05/2024 [facility] Comment on above: Expected: 10/05/2023 (Approximate), Expires: 10/05/2024 Start: 10-05-2023 End: 10-05-2024 TSH W/REFLEX TO FT4 TSH W/REFLEX TO FT4 Lab Routine Anxiety and depression ([facility]) Expected: 10/05/2023 (Approximate), Expires: 10/05/2024 [facility] Comment on above: Expected: 10/05/2023 (Approximate), Expires: 10/05/2024 Start: 10-05-2023 End: 10-05-2024 Urinalysis complete panel - Urine Urinalysis with reflex microscopic (clean catch) Lab Routine Type 2 diabetes mellitus with hyperglycemia, with long-term current use of insulin ([facility]) Expected: 10/05/2023 (Approximate), Expires: 10/05/2024 [facility] Comment on above: Expected: 10/05/2023 (Approximate), Expires: 10/05/2024 Start: 05-05-2023 Influenza vaccination Influenza Vacc ine (#1) [facility] Start: 04-14-2022 Hemoglobin A1c measurement Diabetes: Hemoglobin A1C [facility] Start: 01-19-1992 Screening for malign ant neoplasm of cervix HPV/Cotest [facility] Start: 1983 Screening for malign ant neoplasm of cervix Pap Smear [facility] Start: 1981 Urine screening for protein Diabetes: Urine Protein Screening [facility] Start: 01-19-1972 Glaucoma screening Diabetes: R etinopathy Screening [facility] Start: 1962 Medicare Annual Wellness (AWV) Medicare Annual Wellness (AWV) [facility] Start: 1962 Screening for malign ant neoplasm of colon [facility] Immunizations Immunization Date Immunization Notes Care Provider Fa cility 05-05-2021 Pfizer Purple Cap SARS-CoV-2 Vaccination Corrine Aichholz RECORDS TECH Work Phone: [facility] 12-03-2020 Pfizer Purple Cap SARS-CoV-2 Vaccination Corrine Aichholz RECORDS TECH Work Phone: [facility] 05-30-2019 influenza, injectabl e, quadrivalent, preservative free Corrine Aichholz RECORDS TECH Work Phone: [facility] 05-30-2019 influenza virus vacc ine, unspecified formulation Corrine Aichholz RECORDS TECH Work Phone: [facility] 05-31-2018 influenza, injectabl e, quadrivalent, preservative free Corrine Aichholz RECORDS TECH Work Phone: [facility] 06-01-2017 influenza, injectabl e, quadrivalent, preservative free Corrine Aichholz RECORDS TECH Work Phone: [facility] 10-28-2009 novel influenza-H1N1 -09, preservative-free, injectable Corrine Aichholz RECORDS TECH Work Phone: [facility] Payers Date Payer Category Payer Medicare (Managed Care) [employer] [id number] 2024 Medicare [id number] 2023 Medicare [id number] 1962 Unknown [id number] 2.16.840.1.827502.3.579.2. 593 1962 Unknown [id number] 2.16.840.1.784948.3.579.2. 593 1962 Unknown [id number] 2.16.840.1.320500.3.579.2. 593 1962 Unknown [id number] 2.16.840.1.950989.3.579.2. 593 1962 Unknown [id number] 2.16.840.1.935340.3.579.2. 593 1962 Unknown [id number] 2.16.840.1.979608.3.579.2. 593 1962 Unknown [id number] 2.16.840.1.111728.3.579.2. 593 1962 Unknown [id number] 2.16.840.1.911022.3.579.2. 593 1962 Unknown [id number] 2.16.840.1.811211.3.579.2. 593 1962 Unknown [id number] 2.16.840.1.020741.3.579.2. 593 1962 Unknown [id number] 2.16.840.1.735852.3.579.2. 593 1962 Unknown [id number] 2.16.840.1.102755.3.579.2. 593 1962 Unknown [id number] 2.16.840.1.139229.3.579.2. 1285 1962 Unknown [id number] 2.16.840.1.675135.3.579.2. 1285 1962 Unknown [id number] 2.16.840.1.275497.3.579.2. 1285 1962 Unknown [id number] 2.16.840.1.210164.3.579.2. 1285 1962 Unknown [id number] 2.16.840.1.075410.3.579.2. 1285 1962 Unknown [id number] 2.16.840.1.304497.3.579.2. 1285 1962 Unknown [id number] 2.16.840.1.973659.3.579.2. 1285 1962 Unknown [id number] 2.16.840.1.034338.3.579.2. 1285 1962 Unknown [id number] 2.16.840.1.394120.3.579.2. 1285 1962 Unknown [id number] 2.16.840.1.691234.3.579.2. 1285 1962 Unknown [id number] 2.16.840.1.466804.3.579.2. 1258 1962 Unknown [id number] 2.16.840.1.718431.3.579.2. 1258 1962 Unknown [id number] 2.16.840.1.100783.3.579.2. 1258 1962 Unknown [id number] 2.16.840.1.158808.3.579.2. 1258 1962 Unknown [id number] 2.16.840.1.459047.3.579.2. 1258 1962 Unknown [id number] 2.16.840.1.928056.3.579.2. 1259 1962 Unknown [id number] 2.16.840.1.041369.3.579.2. 9 1962 Unknown [id number] 2.16.840.1.229463.3.579.2. 9 1962 Unknown [id number] 2.16.840.1.953711.3.579.2. 1258 1962 Unknown [id number] 2.16.840.1.775293.3.579.2. 1259 1959 Medicaid [id number] 1959 Unknown [id number] Social History Date Type Detail Facility Start: 03-09-2023 End: 03-26-2024 Tobacco smoking status NHIS Never smoked tobacco [facility] Start: 03-09-2023 End: 03-26-2024 Tobacco use and exposure Smokeless tobacco non-user [facility] Start: 10-05-2023 End: 08-13-2024 Alcohol intake Lifetime non-drinker (finding) [facility] Start: 05-18-2023 End: 03-26-2024 History of Social function [facility] Start: 05-18-2023 End: 03-26-2024 Tobacco use panel [facility] Start: 1960 Sex Assigned At Not on file [facility] NEGATED: Highlighted rowStart: NINF History of tobacco use Passive smoker [facility] Clinical Notes 01-12-2023 to 08-13-2024 Corrine Teague, TIMUR - 08/13/2024 1:45 PM Rosina Teague, TIMUR - 08/13/2024 1:29 PM Rosina Teague, TIMUR - 08/13/2024 1:18 PM Rosina Teague, RECORDS TECH - 08/13/2024 1:17 PM EST Note Date & Type Note Facility 08-13-2024 History of Present illness Narrative Associated Problem(s): Eye pain, bilateral Contacted [facility]'s office to see if we can get her in [place]: Differentnials: , glaucoma, iritis/uveitis, Diabetic complications They will see pt today at [place] office at 3pm Associated Problem(s): Diabetic polyneuropathy associated with type 2 diabetes mellitus ([facility]) Increase pain: would like to increase gabapentin Will also help with pain d/t cold weather Associated Problem(s): Anxiety and depression ([facility]) Continue duloxetine Associated Problem(s): Ankylosing spondylitis of lumbar region ([facility]) Not sure if eye issue is related to or not Has also been referred to Rheumatology as well Compliance has been an issue in the past d/t insurance loss and re establishing Stressed importance of getting into see them Associated Problem(s): Asthma ([facility]) Symbicort and spiriva Pt has been having painful eyes in the past month, she has tried to reschedule with her eye dr however her insurance does not cover her vision. Pt has been taking tylenol often for pain and ocular headaches. She is looking her vision with this. Pt complains of her pain causing a level of 8. Pt states she believes she has infection in her eyes and had the flu a while back which has caused her blood sugars in the last two weeks. She states that her avg in the last two weeks is 260 and believes it has to do with having an infection and not diet changes. Images from the original note were not included. Giorgio Carson is a 64 y.o. female presents with chief complaint of Diabetes HPI: Headaches: constant, behind and around eyes, eyes feels irritated, +blurry vision, and light bothers sight as well. Also has difficulty with night driving. No fever, no definite color to eye drainage, no ear pain or runny nose, Has hx of migraine ANAND's but not what this feels like. Hx of , but not eye involvement in the past. Does also have some cataract formation as well. Has not been able to see any eye doctors, as she is limited on funds, as well as being lost in follow up +blood shot eyes as well Sugars have increased in the last 2 weeks to 260, prior was less than 150 Diabetes She presents for her follow-up diabetic visit. She has type 2 diabetes mellitus. Her disease course has been fluctuating. There are no hypoglycemic associated symptoms. Pertinent negatives for hypoglycemia include no dizziness, headaches, seizures or tremors. Associated symptoms include blurred vision, foot paresthesias and visual change. Pertinent negatives for diabetes include no chest pain, no polydipsia, no polyphagia and no polyuria. There are no hypoglycemic complications. Symptoms are worsening. Diabetic complications include peripheral neuropathy. Risk factors for coronary artery disease include diabetes mellitus and dyslipidemia. Current diabetic treatment includes oral agent (dual therapy) and insulin injections. She is compliant with treatment most of the time. Her overall blood glucose range is >200 mg/dl. An GRUPO inhibitor/angiotensin II receptor lara is being taken. Eye exam is not current. Eye Problem Both eyes are affected. This is a new problem. The current episode started 1 to 4 weeks ago. The problem occurs constantly. The problem has been gradually worsening. There was no injury mechanism. There is No known exposure to pink eye. She Does not wear contacts. Associated symptoms include blurred vision, eye redness and photophobia. Pertinent negatives include no eye discharge, fever, nausea or vomiting. She has tried nothing for the symptoms. SUBJECTIVE: MEDICATIONS: Current Outpatient Medications Medication Instructions albuterol HFA 90 mcg/act inhaler 2 puffs, Inhalation, Every 6 hours PRN albuterol 2.5 mg, Nebulization, Every 6 hours PRN aspirin 81 mg, Oral, Daily atorvastatin (LIPITOR) 80 mg, Oral, Nightly budesonide-formoterol (Symbicort) 160-4.5 MCG/ACT inhaler 2 puffs, 2 times daily RT Continuous Glucose Spragger (Dexcom G7 Spragger) device 1 each, Does not apply, Daily Continuous Glucose Sensor (Dexcom G7 Sensor) misc CHANGE EVERY 10 DAYS DULoxetine (CYMBALTA) 60 mg, Oral, Daily fluticasone (Flonase) 50 MCG/ACT nasal spray 2 sprays, Each Nostril, 2 times daily, Shake gently. Before first use, prime pump. After use, clean tip and replace cap. furosemide (LASIX) 40 mg, Oral, Daily gabapentin (NEURONTIN) 300 mg, Oral, Every 6 hours insulin lispro (HumaLOG KWIKPEN) 100 UNIT/ML injection Sliding scale insulin up to 5 times daily, max 150 units daily Lantus SoloStar 40 Units, Subcutaneous, 2 times daily lisinopril 40 mg, Oral, Daily meloxicam (MOBIC) 15 mg, Oral, Daily metoprolol succinate XL (TOPROL-XL) 50 mg, Oral, Daily montelukast (SINGULAIR) 10 mg, Oral, Nightly omeprazole (PRILOSEC) 40 mg, Oral, Daily before breakfast, Do not crush or chew. Ozempic (1 MG/DOSE) 1 mg, Subcutaneous, Weekly tiotropium (Spiriva Respimat) 1.25 MCG/ACT inhaler 1 capsule, Daily RT ALLERGIES: Allergies Allergen Reactions Exenatide Anaphylaxis, Unknown and Swelling Hazelnut (Filbert) Anaphylaxis Rosiglitazone Anaphylaxis Carvedilol Hives and Unknown Other reaction(s): Unknown Corylus Unknown Other reaction(s): Unknown Glyburide-Metformin Hives and Unknown Other reaction(s): Unknown Losartan Hives and Unknown Other reaction(s): Unknown Metformin Hives and Unknown Other reaction(s): Unknown Metformin Hcl Unknown Morphine Sulfasalazine Other Other reaction(s): GI Upset Victoza [Liraglutide] REVIEW OF SYMPTOMS: Review of Systems Constitutional: Negative for appetite change, chills and fever. HENT: Negative for congestion, ear pain and sore throat. Eyes: Positive for blurred vision, photophobia, pain and redness. Negative for discharge and visual disturbance. Respiratory: Negative for cough, shortness of breath and wheezing. Cardiovascular: Negative for chest pain, palpitations and leg swelling. Gastrointestinal: Negative for abdominal pain, blood in stool, constipation, diarrhea, nausea and vomiting. Genitourinary: Negative for difficulty urinating, dysuria and frequency. Musculoskeletal: Positive for arthralgias, back pain and myalgias. Negative for joint swelling. Skin: Negative for rash and wound. Neurological: Negative for dizziness, tremors, seizures, syncope and headaches. Psychiatric/Behavioral: Negative for behavioral problems, self-injury and suicidal ideas. Depression Hematological: Does not bruise/bleed easily. Endocrine: Negative for polydipsia, polyphagia and polyuria. Allergic/Immunologic: Negative for environmental allergies and food allergies. PAST MEDICAL HISTORY Past Medical History: Diagnosis Date Allergies 10/05/2023 Ankylosing spondylitis of lumbar region ([facility]) Anxiety and depression ([facility]) 10/05/2023 Arthritis Asthma ([facility]) Chest pain COPD (chronic obstructive pulmonary disease) ([facility]) Edema 10/05/2023 Gallstone Gastroesophageal reflux disease without esophagitis History of COVID-19 Hyperlipidemia ([facility] Hypertension ([facility]) Melanoma ([facility]) 11/16/2023 pelvic area, back and labia Paresthesia Second hand smoke exposure Past Surgical History: Procedure Laterality Date APPENDECTOMY CARDIAC SURGERY Catherization x 3 ENDOMETRIAL ABLATION HYSTERECTOMY SKIN CANCER EXCISION malignant melanoma family history includes Cancer in her mother; Emphysema in her maternal grandfather; Graves' disease in her brother; Hartnup's disease in her father; Heart disease in her mother; Hypertension in her brother and mother; Lung cancer in her mother; Multiple myeloma in her brother. OBJECTIVE: Visit Vitals BP 98/60 (BP Location: Left arm, Patient Position: Sitting, BP Cuff Size: Adult long) Pulse 64 Temp 98.5 F (Temporal) Resp 19 Ht 5' 5 Wt 177 lb 6.4 oz SpO2 99% BMI 29.52 kg/m Smoking Status Never BSA 1.92 m Physical Exam Vitals and nursing note reviewed. Constitutional: General: She is not in acute distress. Appearance: Normal appearance. HENT: Head: Normocephalic and atraumatic. Right Ear: Tympanic membrane, ear canal and external ear normal. Left Ear: Tympanic membrane, ear canal and external ear normal. Nose: Nose normal. No congestion or rhinorrhea. Mouth/Throat: Mouth: Mucous membranes are moist. Eyes: General: No scleral icterus. Extraocular Movements: Extraocular movements intact. Conjunctiva/sclera: Conjunctivae normal. Pupils: Pupils are equal, round, and reactive to light. Comments: Very minimal erythema Neck: Vascular: No carotid bruit. Cardiovascular: Rate and Rhythm: Normal rate and regular rhythm. Pulses: Normal pulses. Heart sounds: Normal heart sounds. Pulmonary: Effort: Pulmonary effort is normal. Breath sounds: Normal breath sounds. No wheezing or rales. Abdominal: General: Bowel sounds are normal. There is no distension. Palpations: Abdomen is soft. There is no mass. Tenderness: There is no abdominal tenderness. Musculoskeletal: General: Normal range of motion. Cervical back: Normal range of motion and neck supple. Right lower leg: No edema. Left lower leg: No edema. Skin: General: Skin is warm and dry. Capillary Refill: Capillary refill takes 2 to 3 seconds. Findings: No rash. Neurological: General: No focal deficit present. Mental Status: She is alert and oriented to person, place, and time. Cranial Nerves: No cranial nerve deficit. Psychiatric: Mood and Affect: Mood normal. Behavior: Behavior normal. Thought Content: Thought content normal. Judgment: Judgment normal. ASSESSMENT AND PLAN: No follow-ups on file. Problem List Items Addressed This Visit Benign essential hypertension (CMS/HCC) - Primary Please check blood pressure daily and record DASH diet Limit caffeine Take medication as directed Contact office if chest pain, pressure, dizziness, shortness of breath, swelling legs Recommend slow position changes Current meds: lisinopril, metoprolol Relevant Medications furosemide (Lasix) 40 MG tablet lisinopril 40 MG tablet metoprolol succinate XL (Toprol-XL) 50 MG 24 hr tablet Type 2 diabetes mellitus with hyperglycemia, with long-term current use of insulin (CMS/HCC) Check blood sugars daily, notify if <70 or >200. Take medications (pills or insulin) as directed. Monitor for s/s of hypoglycemia (sweaty, dizziness, nausea, vomiting, or shakiness). Watch for increase in thirst, urination, or appetite. Inspect feet frequently monitoring for open wounds , and also recommend yearly eye exam. Pt should attempt to remain as physically active as chronic conditions allow, as well as trying to follow a diet low in carbohydrates, and simple sugars. A1c 8.2% on 06/27/24 On statin, grupo and asa Relevant Medications semaglutide (Ozempic, 1 MG/DOSE,) 4 MG/3ML solution pen-injector Hyperlipidemia ([facility]) Relevant Medications atorvastatin (Lipitor) 80 MG tablet Asthma ([facility]) Symbicort and spiriva Relevant Medications fluticasone (Flonase) 50 MCG/ACT nasal spray montelukast (Singulair) 10 MG tablet Gastroesophageal reflux disease without esophagitis Relevant Medications omeprazole (PriLOSEC) [address] capsule Ankylosing spondylitis of lumbar region ([facility]) Not sure if eye issue is related to or not Has also been referred to Rheumatology as well Compliance has been an issue in the past d/t insurance loss and re establishing Stressed importance of getting into see them Relevant Medications meloxicam (Mobic) 15 MG tablet Anxiety and depression ([facility]) Continue duloxetine Relevant Medications DULoxetine (Cymbalta) [address] capsule Overweight (BMI 25.0-29.9) Diabetic polyneuropathy associated with type 2 diabetes mellitus ([facility]) Increase pain: would like to increase gabapentin Will also help with pain d/t cold weather Relevant Medications gabapentin (Neurontin) 300 MG capsule Eye pain, bilateral Contacted [facility] office to see if we can get her in [place]: Differentnials: , glaucoma, iritis/uveitis, Diabetic complications They will see pt today at [place] office at 3pm Associated Problem(s): Type 2 diabetes mellitus with hyperglycemia, with long-term current use of insulin ([facility]) Check blood sugars daily, notify if <70 or >200. Take medications (pills or insulin) as directed. Monitor for s/s of hypoglycemia (sweaty, dizziness, nausea, vomiting, or shakiness). Watch for increase in thirst, urination, or appetite. Inspect feet frequently monitoring for open wounds , and also recommend yearly eye exam. Pt should attempt to remain as physically active as chronic conditions allow, as well as trying to follow a diet low in carbohydrates, and simple sugars. A1c 8.2% on 06/27/24 On statin, grupo and asa Associated Problem(s): Benign essential hypertension (CMS/HCC) Please check blood pressure daily and record DASH diet Limit caffeine Take medication as directed Contact office if chest pain, pressure, dizziness, shortness of breath, swelling legs Recommend slow position changes Current meds: lisinopril, metoprolol documented in this encounter [facility] 06-25-2024 History of Present illness Narrative Associated Problem(s): Type 2 diabetes mellitus with hyperglycemia, with long-term current use of insulin (CMS/HCC) No med dose changes, check labs Associated Problem(s): Benign essential hypertension (CMS/HCC) stable Associated Problem(s): Abdominal pain, RLQ No acute symptoms, may be some residual discomfort from her diarrheal illness 2 weeks ago Check labs Associated Problem(s): Diabetic mononeuropathy (CMS/HCC) Gabapentin has been out for a few weeks Fu in 4-6 weeks to re assess since restarting Pt has gotten her new insurance card but has not figured out what her insurance covers such as blood work, meds, drs/specialists Needing refills: gabapentin, omeprazole, dexcom (she has her last one on now) Pt states she still has a lump in the left axillary region-smaller and not as tender Pt has not gotten into the dentist there is a waiting list at the [facility]- there is about 8 teeth with infection. Pt is needing to see an ortho surgeon around here that accepts her insurance. Pt had flu like symptoms in the beginning of the month. Pt is still needing to get an eye exam Pt has been having some discomfort in her right lower abdomin area and bloating. Images from the original note were not included. Giorgio Carson is a 64 y.o. female presents with chief complaint of No chief complaint on file. HPI: 7 day average 184, 14 day average 180, 30 day average 175 with GMI 7.5% , 90 day supply 226 GMI 8.7% Pain in RLQ: has had recent diarrhea illness for several days. Pain is freq, stabbing, no longer has appendix, had partial hyst, one ovary removed not sure which side Hypertension This is a chronic problem. The problem is unchanged. The problem is controlled. Pertinent negatives include no blurred vision, chest pain, headaches, palpitations, peripheral edema or shortness of breath. There are no associated agents to hypertension. Risk factors for coronary artery disease include diabetes mellitus, dyslipidemia, obesity, post-menopausal state and sedentary lifestyle. Past treatments include beta blockers and GRUPO inhibitors. The current treatment provides significant improvement. There are no compliance problems. Hypertensive end-organ damage includes retinopathy. Diabetes She presents for her follow-up diabetic visit. She has type 2 diabetes mellitus. Her disease course has been fluctuating. There are no hypoglycemic associated symptoms. Pertinent negatives for hypoglycemia include no dizziness, headaches, nervousness/anxiousness, seizures or tremors. Associated symptoms include polydipsia and polyuria. Pertinent negatives for diabetes include no blurred vision, no chest pain, no polyphagia and no visual change. There are no hypoglycemic complications. Diabetic complications include peripheral neuropathy and retinopathy. Pertinent negatives for diabetic complications include no nephropathy. Risk factors for coronary artery disease include diabetes mellitus, dyslipidemia, hypertension, post-menopausal and obesity. Current diabetic treatment includes insulin injections (GLP 1). An GRUPO inhibitor/angiotensin II receptor lara is being taken. She does not see a manager infrastructure.Eye exam is not current. SUBJECTIVE: MEDICATIONS: Current Outpatient Medications Medication Instructions albuterol HFA 90 mcg/act inhaler 2 puffs, Inhalation, Every 6 hours PRN albuterol 2.5 mg, Nebulization, Every 6 hours PRN atorvastatin (LIPITOR) 80 mg, Oral, Nightly budesonide-formoterol (Symbicort) 160-4.5 MCG/ACT inhaler 2 puffs, Inhalation, 2 times daily RT, Rinse mouth with water after use to reduce aftertaste and incidence of candidiasis. Do not swallow. Continuous Glucose Spragger ([employer] G7 Spragger) device 1 each, Does not apply, Daily DULoxetine (CYMBALTA) 60 mg, Oral, Daily fluticasone (Flonase) 50 MCG/ACT nasal spray 2 sprays, Each Nostril, 2 times daily, Shake gently. Before first use, prime pump. After use, clean tip and replace cap. furosemide (LASIX) 40 mg, Oral, Daily gabapentin (NEURONTIN) 300 mg, Oral, 2 times daily insulin lispro (HumaLOG KWIKPEN) 100 UNIT/ML injection Sliding scale insulin up to 5 times daily, max 150 units daily Lantus SoloStar 40 Units, Subcutaneous, 2 times daily lisinopril 40 mg, Oral, Daily meloxicam (MOBIC) 15 mg, Oral, Daily metoprolol succinate XL (TOPROL-XL) 50 mg, Oral, Daily montelukast (SINGULAIR) 10 mg, Oral, Nightly omeprazole (PRILOSEC) 40 mg, Oral, Daily before breakfast, Do not crush or chew. Ozempic (0.25 or 0.5 MG/DOSE) 0.25 mg, Subcutaneous, Every 7 days Ozempic (1 MG/DOSE) 1 mg, Subcutaneous, Weekly tiotropium (Spiriva Respimat) 1.25 MCG/ACT inhaler 1 capsule, Inhalation, Daily RT ALLERGIES: Allergies Allergen Reactions Exenatide Anaphylaxis, Unknown and Swelling Hazelnut (Filbert) Anaphylaxis Rosiglitazone Anaphylaxis Carvedilol Hives and Unknown Other reaction(s): Unknown Corylus Unknown Other reaction(s): Unknown Glyburide-Metformin Hives and Unknown Other reaction(s): Unknown Losartan Hives and Unknown Other reaction(s): Unknown Metformin Hives and Unknown Other reaction(s): Unknown Metformin Hcl Unknown Morphine Sulfasalazine Other Other reaction(s): GI Upset Victoza [Liraglutide] REVIEW OF SYMPTOMS: Review of Systems Constitutional: Negative for appetite change, chills and fever. HENT: Negative for congestion, ear pain and sore throat. Eyes: Negative for blurred vision, pain, discharge, redness and visual disturbance. Respiratory: Negative for cough, shortness of breath and wheezing. Cardiovascular: Negative for chest pain, palpitations and leg swelling. Gastrointestinal: Positive for abdominal pain. Negative for blood in stool, constipation, diarrhea, nausea and vomiting. Genitourinary: Negative for difficulty urinating, dysuria and frequency. Musculoskeletal: Positive for arthralgias and back pain. Negative for joint swelling and myalgias. Skin: Negative for rash and wound. Neurological: Negative for dizziness, tremors, seizures, syncope and headaches. Psychiatric/Behavioral: Negative for behavioral problems, self-injury and suicidal ideas. The patient is not nervous/anxious. Hematological: Does not bruise/bleed easily. Endocrine: Positive for polydipsia and polyuria. Negative for polyphagia. Allergic/Immunologic: Negative for environmental allergies and food allergies. PAST MEDICAL HISTORY Past Medical History: Diagnosis Date Allergies 10/05/2023 Ankylosing spondylitis of lumbar region ([facility]) Anxiety and depression ([facility]) 10/05/2023 Arthritis Asthma ([facility]) Chest pain COPD (chronic obstructive pulmonary disease) ([facility]) Edema 10/05/2023 Gallstone Gastroesophageal reflux disease without esophagitis History of COVID-19 Hyperlipidemia ([facility]) Hypertension ([facility]) Melanoma ([facility]) 11/16/2023 pelvic area, back and labia Paresthesia Second hand smoke exposure Past Surgical History: Procedure Laterality Date APPENDECTOMY CARDIAC SURGERY Catherization x 3 ENDOMETRIAL ABLATION HYSTERECTOMY SKIN CANCER EXCISION malignant melanoma family history includes Cancer in her mother; Emphysema in her maternal grandfather; Graves' disease in her brother; Hartnup's disease in her father; Heart disease in her mother; Hypertension in her brother and mother; Lung cancer in her mother; Multiple myeloma in her brother. OBJECTIVE: Visit Vitals BP 116/78 (BP Location: Left arm, Patient Position: Sitting, BP Cuff Size: Adult long) Pulse 71 Temp 98.6 F (Temporal) Resp 18 Wt 175 lb 6.4 oz SpO2 95% BMI 29.19 kg/m Smoking Status Never BSA 1.91 m Physical Exam Vitals and nursing note reviewed. Constitutional: General: She is not in acute distress. Appearance: Normal appearance. HENT: Head: Normocephalic and atraumatic. Right Ear: External ear normal. Left Ear: External ear normal. Nose: Nose normal. Mouth/Throat: Mouth: Mucous membranes are moist. Eyes: Extraocular Movements: Extraocular movements intact. Conjunctiva/sclera: Conjunctivae normal. Neck: Vascular: No carotid bruit. Cardiovascular: Rate and Rhythm: Normal rate and regular rhythm. Pulses: Normal pulses. Heart sounds: Normal heart sounds. Pulmonary: Effort: Pulmonary effort is normal. Breath sounds: Normal breath sounds. No wheezing, rhonchi or rales. Abdominal: General: Bowel sounds are normal. There is no distension. Palpations: Abdomen is soft. There is no mass. Tenderness: There is no abdominal tenderness (mild tenderness to RLQ). Musculoskeletal: General: Normal range of motion. Cervical back: Normal range of motion and neck supple. Right lower leg: No edema. Left lower leg: No edema. Lymphadenopathy: Cervical: No cervical adenopathy. Skin: General: Skin is warm and dry. Capillary Refill: Capillary refill takes 2 to 3 seconds. Findings: No rash. Neurological: General: No focal deficit present. Mental Status: She is alert and oriented to person, place, and time. Psychiatric: Mood and Affect: Mood normal. Behavior: Behavior normal. Thought Content: Thought content normal. Judgment: Judgment normal. ASSESSMENT AND PLAN: No follow-ups on file. Problem List Items Addressed This Visit Benign essential hypertension (CMS/HCC) stable Type 2 diabetes mellitus with hyperglycemia, with long-term current use of insulin (CMS/HCC) - Primary No med dose changes, check labs Relevant Medications Continuous Glucose Sensor (Dexcom G7 Sensor) misc Other Relevant Orders Basic metabolic panel Hemoglobin A1c Diabetic mononeuropathy (CMS/HCC) Gabapentin has been out for a few weeks Fu in 4-6 weeks to re assess since restarting Relevant Medications gabapentin (Neurontin) 300 MG capsule Ankylosing spondylitis of lumbar region ([facility]) Relevant Orders Ambulatory referral to Rheumatology Overweight (BMI 25.0-29.9) Abdominal pain, RLQ No acute symptoms, may be some residual discomfort from her diarrheal illness 2 weeks ago Check labs Relevant Orders Urinalysis with reflex microscopic (clean catch) Urine culture (clean catch) CBC and differential documented in this encounter [facility] 05-14-2024 History of Present illness Narrative Associated Problem(s): URI (upper respiratory infection) Fluids, rest, atb Fu if not better no resp distress Associated Problem(s): Sebaceous cyst of axilla Warm compress to affected area Atb til finished fu if not better Associated Problem(s): Dental infection Waiting on dental appt atb Associated Problem(s): Type 2 diabetes mellitus with hyperglycemia, with long-term current use of insulin ([facility]) She is now using her dexcom reader. Over the last few weeks 50-60% in range, 20% high Has had a couple hypogylcemia she is questioning her insulin doses Current insulin: 40 units BID, we will take them down to 44mg BID Fast acting basal: she was doing an average of 10-13 units prior to meals, we will cut this back to 8 units before meal and no correction Insurance issues, will provide 2 samples of ozempic 2mg/3ml, lot [id number], exp 09/03/25 Instruction 0.25mg weekly for 4 weeks, then increase to 0.5mg weekly Continue difficulty with her financial and social issues. We will try to continue to work with and give her the tools to try to make this work Fu in 6 weeks 250-400 Images from the original note were not included. Giorgio Carson is a 64 y.o. female presents with chief complaint of No chief complaint on file. HPI: Here today for a recheck. Since her last appt . She has lost her insurance also got new insurance but waiting for her insurance card to come. This has been over 4 weeks, she has 2 weeks of meds left. She has not been able to go to pharmacy to get anything since she does not have a card. She also has a tender lump to left axillary region, no drainage noted Also notes infected tooth that she has some time waiting to get into dentist. She also notes coughing up green sputum, no fever,chills no acute wheezing, does feel congested Dexcom reads: 3 day average 284 , 7 days 271, 14 day 271 (9.8%) with range 14%, over 60% high/very high Diabetes She presents for her follow-up diabetic visit. She has type 2 diabetes mellitus. Her disease course has been fluctuating. There are no hypoglycemic associated symptoms. Pertinent negatives for hypoglycemia include no dizziness, headaches, nervousness/anxiousness, seizures or tremors. Associated symptoms include blurred vision, fatigue, polydipsia and polyuria. Pertinent negatives for diabetes include no chest pain, no polyphagia, no weakness and no weight loss. Symptoms are improving. Diabetic complications include peripheral neuropathy and retinopathy. Risk factors for coronary artery disease include diabetes mellitus, dyslipidemia, hypertension, obesity, sedentary lifestyle and stress. Current diabetic treatment includes oral agent (dual therapy) and insulin injections. She is compliant with treatment most of the time. She rarely participates in exercise. Her overall blood glucose range is >200 mg/dl. An GRUPO inhibitor/angiotensin II receptor lara is being taken. Eye exam is not current. SUBJECTIVE: MEDICATIONS: Current Outpatient Medications Medication Instructions albuterol HFA 90 mcg/act inhaler 2 puffs, Inhalation, Every 6 hours PRN albuterol 2.5 mg, Nebulization, Every 6 hours PRN amoxicillin-clavulanate (Augmentin) 875-125 MG tablet 875 mg, Oral, 2 times daily, Take with food atorvastatin (LIPITOR) 80 mg, Oral, Nightly budesonide-formoterol (Symbicort) 160-4.5 MCG/ACT inhaler 2 puffs, Inhalation, 2 times daily RT, Rinse mouth with water after use to reduce aftertaste and incidence of candidiasis. Do not swallow. Continuous Glucose Spragger ([employer] G7 Spragger) device 1 each, Does not apply, Daily DULoxetine (CYMBALTA) 60 mg, Oral, Daily fluticasone (Flonase) 50 MCG/ACT nasal spray 2 sprays, Each Nostril, 2 times daily, Shake gently. Before first use, prime pump. After use, clean tip and replace cap. furosemide (LASIX) 40 mg, Oral, Daily gabapentin (NEURONTIN) 300 mg, Oral, 2 times daily insulin lispro (HumaLOG KWIKPEN) 100 UNIT/ML injection Sliding scale insulin up to 5 times daily, max 150 units daily Lantus SoloStar 40 Units, Subcutaneous, 2 times daily lisinopril 40 mg, Oral, Daily meloxicam (MOBIC) 15 mg, Oral, Daily metoprolol succinate XL (TOPROL-XL) 50 mg, Oral, Daily montelukast (SINGULAIR) 10 mg, Oral, Nightly omeprazole (PRILOSEC) 40 mg, Oral, Daily before breakfast, Do not crush or chew. Ozempic (0.25 or 0.5 MG/DOSE) 0.25 mg, Subcutaneous, Every 7 days Ozempic (1 MG/DOSE) 1 mg, Subcutaneous, Weekly tiotropium (Spiriva Respimat) 1.25 MCG/ACT inhaler 1 capsule, Inhalation, Daily RT ALLERGIES: Allergies Allergen Reactions Exenatide Anaphylaxis, Unknown and Swelling Hazelnut (Filbert) Anaphylaxis Rosiglitazone Anaphylaxis Carvedilol Hives and Unknown Other reaction(s): Unknown Corylus Unknown Other reaction(s): Unknown Glyburide-Metformin Hives and Unknown Other reaction(s): Unknown Losartan Hives and Unknown Other reaction(s): Unknown Metformin Hives and Unknown Other reaction(s): Unknown Metformin Hcl Unknown Morphine Sulfasalazine Other Other reaction(s): GI Upset Victoza [Liraglutide] REVIEW OF SYMPTOMS: Review of Systems Constitutional: Positive for fatigue. Negative for appetite change, chills, fever and weight loss. HENT: Positive for congestion and dental problem. Negative for ear pain and sore throat. Eyes: Positive for blurred vision. Negative for pain, discharge, redness and visual disturbance. Respiratory: Positive for cough. Negative for shortness of breath and wheezing. Cardiovascular: Negative for chest pain, palpitations and leg swelling. Gastrointestinal: Negative for abdominal pain, blood in stool, constipation, diarrhea, nausea and vomiting. Genitourinary: Negative for difficulty urinating, dysuria and frequency. Musculoskeletal: Negative for arthralgias, back pain, joint swelling and myalgias. Skin: Negative for rash and wound. Neurological: Negative for dizziness, tremors, seizures, syncope, weakness and headaches. Psychiatric/Behavioral: Negative for behavioral problems, self-injury and suicidal ideas. The patient is not nervous/anxious. Hematological: Does not bruise/bleed easily. Endocrine: Positive for polydipsia and polyuria. Negative for polyphagia. Allergic/Immunologic: Negative for environmental allergies and food allergies. PAST MEDICAL HISTORY Past Medical History: Diagnosis Date Allergies 10/05/2023 Ankylosing spondylitis of lumbar region ([facility]) Anxiety and depression ([facility]) 10/05/2023 Arthritis Asthma ([facility]) Chest pain COPD (chronic obstructive pulmonary disease) ([facility]) Edema 10/05/2023 Gallstone Gastroesophageal reflux disease without esophagitis History of COVID-19 Hyperlipidemia ([facility]) Hypertension ([facility]) Melanoma ([facility]) 11/16/2023 pelvic area, back and labia Paresthesia Second hand smoke exposure Past Surgical History: Procedure Laterality Date APPENDECTOMY CARDIAC SURGERY Catherization x 3 ENDOMETRIAL ABLATION HYSTERECTOMY SKIN CANCER EXCISION malignant melanoma family history includes Cancer in her mother; Emphysema in her maternal grandfather; Graves' disease in her brother; Hartnup's disease in her father; Heart disease in her mother; Hypertension in her brother and mother; Lung cancer in her mother; Multiple myeloma in her brother. OBJECTIVE: Visit Vitals BP 124/80 (BP Location: Left arm, Patient Position: Sitting, BP Cuff Size: Adult long) Pulse 70 Temp 98.1 F (Temporal) Resp 18 Ht 5' 5 Wt 176 lb SpO2 95% BMI 29.29 kg/m Smoking Status Never BSA 1.91 m Physical Exam Vitals and nursing note reviewed. Constitutional: General: She is not in acute distress. Appearance: Normal appearance. She is not ill-appearing. HENT: Head: Normocephalic and atraumatic. Right Ear: Tympanic membrane, ear canal and external ear normal. Left Ear: Tympanic membrane, ear canal and external ear normal. Nose: Nose normal. No congestion or rhinorrhea. Mouth/Throat: Mouth: Mucous membranes are moist. Pharynx: No oropharyngeal exudate or posterior oropharyngeal erythema. Comments: Several broken teeth, some missing teeth, no s/s abscess noted Although is tender to the right maxillary region, Eyes: Extraocular Movements: Extraocular movements intact. Conjunctiva/sclera: Conjunctivae normal. Cardiovascular: Rate and Rhythm: Normal rate and regular rhythm. Pulses: Normal pulses. Heart sounds: Normal heart sounds. Pulmonary: Effort: Pulmonary effort is normal. Breath sounds: Normal breath sounds. Abdominal: General: Bowel sounds are normal. There is no distension. Palpations: Abdomen is soft. There is no mass. Tenderness: There is no abdominal tenderness. Musculoskeletal: General: Normal range of motion. Cervical back: Normal range of motion and neck supple. Skin: General: Skin is warm and dry. Capillary Refill: Capillary refill takes 2 to 3 seconds. Findings: No rash. Comments: Sm sebacceous cyst to left axillary region, measures approx 8mm, white cheesy substance expressed. No surrounding erythema or induration Neurological: General: No focal deficit present. Mental Status: She is alert and oriented to person, place, and time. Psychiatric: Mood and Affect: Mood normal. Behavior: Behavior normal. Thought Content: Thought content normal. Judgment: Judgment normal. ASSESSMENT AND PLAN: No follow-ups on file. Problem List Items Addressed This Visit Type 2 diabetes mellitus with hyperglycemia, with long-term current use of insulin ([facility]) - Primary She is now using her dexcom reader. Over the last few weeks 50-60% in range, 20% high Has had a couple hypogylcemia she is questioning her insulin doses Current insulin: 40 units BID, we will take them down to 44mg BID Fast acting basal: she was doing an average of 10-13 units prior to meals, we will cut this back to 8 units before meal and no correction Insurance issues, will provide 2 samples of ozempic 2mg/3ml, lot [id number], exp 09/03/25 Instruction 0.25mg weekly for 4 weeks, then increase to 0.5mg weekly Continue difficulty with her financial and social issues. We will try to continue to work with and give her the tools to try to make this work Fu in 6 weeks Overweight (BMI 25.0-29.9) Dental infection Waiting on dental appt atb Relevant Medications amoxicillin-clavulanate (Augmentin) 875-125 MG tablet Sebaceous cyst of axilla Warm compress to affected area Atb til finished fu if not better Relevant Medications amoxicillin-clavulanate (Augmentin) 875-125 MG tablet URI (upper respiratory infection) Fluids, rest, atb Fu if not better no resp distress Relevant Medications amoxicillin-clavulanate (Augmentin) 875-125 MG tablet documented in this encounter [facility] 05-07-2024 History of Present illness Narrative Images from the original note were not included. Lesions: Location: tail bone Duration: 8-9 months Quality: painful to sit at times Associated symptoms: non-healing Treatments: none Had Melanoma on her labia at 23 years old. New patient All pertinent medical history, medications, and allergies were reviewed. General Exam: alert , oriented to person, place, and time , normal affect, well appearing Unaccompanied A focused exam completed based on patient reported problems, see below: 1. Melanocytic nevus of right lower extremity Right Buttock Scattered benign appearing, regular brown to light brown melanocytic papules and macules with similar morphology Counseled regarding these benign growths. Rarely, a nevus can develop into malignant melanoma, so any changing nevi should be promptly re-evaluated. Biopsy was offered but patient declined at time of visit. Related Procedures Ambulatory referral to Dermatology 2. Personal history of malignant melanoma of skin (2) Left Labium, Right Labium No evidence of recurrence at melanoma scar. The patient was counseled that scars from excisional sites of melanoma should be monitored closely for recurrence. The patient was instructed to contact the office for any new, changing, or symptomatic moles. The patient was also instructed to contact the office for any new lesions that develop within or around the previous melanoma scar. 3. Epidermal inclusion cyst Left Axilla 0.5 x 0.5 cm erythematous, subcutaneous nodule Patient was counseled regarding cysts. Although benign, cysts often slowly enlarge and can occasionally become inflamed. Discussed the only way to definitively diagnose the lesion would be to have it removed and tested. Discussed treatment options including observation vs. excision. Patient declined to schedule excision at this time. 4. Acrochordon Left Inframammary Fold Fleshy, skin-colored sessile and pedunculated papules with surrounding erythema The patient was informed that skin tags are benign growths usually found around the neck or in the axillae. Due to symptoms/inflammation, removal performed today, see procedure note. Procedure: Skin tag removal Informed consent: Discussed risks (permanent scarring, infection, pain, bleeding, bruising, redness, and recurrence of the lesion) and benefits of the procedure, as well as the alternatives. She is aware that skin tags are benign lesions, and their removal is often not considered medically necessary. Informed consent was obtained and waiver was signed if needed. Anesthesia: 1% lidocaine with epinephrine and a 1:10 solution of 8.4% sodium bicarbonate, Quantity: 0.3 cc The area was prepared and draped in a standard fashion. Snip removal was performed. Bleeding was controlled with electrocautery A sterile dressing was applied. The patient tolerated procedure well. The patient was instructed on post-op care. Number of lesions removed: 1 5. Melanocytic nevus of right shoulder Right Upper Back Scattered benign appearing, regular brown to light brown melanocytic papules and macules with similar morphology Counseled regarding these benign growths. Rarely, a nevus can develop into malignant melanoma, so any changing nevi should be promptly re-evaluated. 6. Xerosis cutis Head - Anterior (Face) Dry, scaly skin Recommended Dove soap and moisturizer handout given along with some samples. Next Visit: 1 year skin check was recommended, declined to schedule at this time documented in this encounter [facility] 10-05-2023 Telephone encounter Note Back in August we reached out to you regarding helping this patient out. She has been living in her car over 5 months, is insulin dependant diabetic, has not been taking her insulin and meds regularly. She has given me phone number of [phone]. She also states please leave a message with a return call number if you cannot reach her. She knows to be expecting your call. Thanks Corrine Teague [facility] 10-05-2023 Miscellaneous Notes Back in August we reached out to you regarding helping this patient out. She has been living in her car over 5 months, is insulin dependant diabetic, has not been taking her insulin and meds regularly. She has given me phone number of [phone]. She also states please leave a message with a return call number if you cannot reach her. She knows to be expecting your call. Thanks Corrine Teague documented in this encounter [facility] 10-05-2023 History of Present illness Narrative Associated Problem(s): Anxiety and depression (CMS/HCC) Stable, despite her current living conditions Associated Problem(s): Type 2 diabetes mellitus with hyperglycemia, with long-term current use of insulin (CMS/HCC) Non complaint d/t living conditions Encouraged her to take insulin as directed Will also refer her to Diabetes Care at [facility] Associated Problem(s): Yeast infection involving the vagina and surrounding area Likely d/t uncontrolled sugar Will treat with diflucan Associated Problem(s): Benign essential hypertension (CMS/HCC) Under control at this time no med changes Associated Problem(s): COPD (chronic obstructive pulmonary disease) ([facility]) Breathing appears stable at this time Not feeling well. 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 Giorgio Carson is a 63 y.o. female presents with chief complaint of No chief complaint on file. HPI: Here today with multiple complaints. She has been living in her care for several months. At last office visit I did send her to the ER for evaluation. Nothing much helped their. She is back today, no insulin use for last few months, she is sleeping in her car, freq urination, yeast infection as well. 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 She is remaining quite positive despite all of her life struggles She is in need of med refills, would like a referral to Diabetes Care at [facility] as well. She is eating randomly, some constipation noted as well, SUBJECTIVE: MEDICATIONS: Current Outpatient Medications Medication Instructions albuterol HFA 90 mcg/act inhaler 2 puffs, Inhalation, Every 4 hours PRN albuterol 2.5 mg, Nebulization, Every 6 hours PRN atorvastatin (LIPITOR) 80 mg, Oral, Daily budesonide-formoterol (Symbicort) 160-4.5 MCG/ACT inhaler 2 puffs, Inhalation, 2 times daily RT, Rinse mouth with water after use to reduce aftertaste and incidence of candidiasis. Do not swallow. busPIRone (BUSPAR) 7.5 mg, Oral, 2 times daily DULoxetine (CYMBALTA) 60 mg, Oral, 2 times daily, Do not crush or chew. fluticasone (Flonase) 50 MCG/ACT nasal spray 2 sprays, Each Nostril, 2 times daily, Shake gently. Before first use, prime pump. After use, clean tip and replace cap. furosemide (LASIX) 40 mg, Oral, Daily gabapentin (NEURONTIN) 300 mg, Oral, Every 6 hours glipiZIDE (GLUCOTROL) 5 mg, Oral, 2 times daily before meals insulin detemir (LEVEMIR) 46 Units, Subcutaneous, Nightly insulin lispro (HumaLOG José Miguel KwikPen) 100 UNIT/ML injection Subcutaneous, 3 times daily with meals, sliding scale before meals less than 110 none, 151 to 200 3 units plus 10,201-250 5 units plus 10 251-300 7 units plus 10 301- 9 units
plus 10 351-400 11units plus 10 >13 units plus 10 and call doctor insulin lispro protamine-insulin lispro (HumaLOG MIX 50/50 KWIKPEN) (50-50) 100 UNIT/ML injection Subcutaneous, 2 times daily with meals, (one) subcutaneous per sliding scale up to 5 times daily, (8 units plus sliding scale) lisinopril 40 mg, Oral, Daily meloxicam (MOBIC) 15 mg, Oral, Daily metoprolol succinate XL (TOPROL-XL) 100 mg, Oral, Daily, Do not crush or chew. montelukast (SINGULAIR) 10 mg, Oral, Daily omeprazole (PRILOSEC) 40 mg, Oral, Daily before breakfast, Do not crush or chew. tiotropium (Spiriva Respimat) 1.25 MCG/ACT inhaler 1 capsule, Inhalation, Daily RT Trulicity 3 mg, Subcutaneous, Weekly ALLERGIES: Allergies Allergen Reactions Exenatide Anaphylaxis, Unknown and Swelling Rosiglitazone Anaphylaxis Carvedilol Hives and Unknown Other reaction(s): Unknown Corylus Unknown Other reaction(s): Unknown Glyburide-Metformin Hives and Unknown Other reaction(s): Unknown Losartan Hives and Unknown Other reaction(s): Unknown Metformin Hives and Unknown Other reaction(s): Unknown Metformin Hcl Unknown Morphine Sulfasalazine Other Other reaction(s): GI Upset Victoza [Liraglutide] REVIEW OF SYMPTOMS: Review of Systems Constitutional: Positive for fatigue. Negative for appetite change, chills and fever. HENT: Negative for congestion, ear pain and sore throat. Eyes: Negative for pain, discharge, redness and visual disturbance. Respiratory: Negative for cough, shortness of breath and wheezing. Cardiovascular: Positive for leg swelling. Negative for chest pain and palpitations. Gastrointestinal: Positive for constipation. Negative for abdominal pain, blood in stool, diarrhea, nausea and vomiting. Genitourinary: Positive for urgency and vaginal discharge. Negative for difficulty urinating, dysuria and frequency. Musculoskeletal: Negative for arthralgias, back pain, joint swelling and myalgias. Skin: Negative for rash and wound. Neurological: Negative for dizziness, tremors, seizures, syncope and headaches. Psychiatric/Behavioral: Negative for behavioral problems, self-injury and suicidal ideas. The patient is not nervous/anxious. Hematological: Does not bruise/bleed easily. Endocrine: Positive for polydipsia and polyuria. Negative for polyphagia. Allergic/Immunologic: Negative for environmental allergies and food allergies. PAST MEDICAL HISTORY Past Medical History: Diagnosis Date Allergies 10/05/2023 Ankylosing spondylitis of lumbar region ([facility]) Anxiety and depression ([facility]) 10/05/2023 Arthritis Asthma ([facility]) Chest pain COPD (chronic obstructive pulmonary disease) ([facility]) Diabetes mellitus, type II, insulin dependent ([facility]) Edema 10/05/2023 Gallstone Gastroesophageal reflux disease without esophagitis History of COVID-19 Hyperlipidemia ([facility]) Hypertension ([facility]) Melanoma ([facility]) pelvic area, back and labia Paresthesia Second hand smoke exposure Past Surgical History: Procedure Laterality Date APPENDECTOMY CARDIAC SURGERY Catherization x 3 ENDOMETRIAL ABLATION HYSTERECTOMY SKIN CANCER EXCISION malignant melanoma family history includes Cancer in her mother; Emphysema in her maternal grandfather; Graves' disease in her brother; Hartnup's disease in her father; Heart disease in her mother; Hypertension in her brother and mother; Lung cancer in her mother; Multiple myeloma in her brother. OBJECTIVE: Visit Vitals BP 140/80 (BP Location: Left arm, Patient Position: Sitting, BP Cuff Size: Adult) Pulse 98 Temp 97.8 F (Temporal) Resp 18 Ht 4' 8 Wt 145 lb 3.2 oz SpO2 97% BMI 32.55 kg/m Smoking Status Never BSA 1.61 m Physical Exam Vitals reviewed. Constitutional: General: She is not in acute distress. Appearance: Normal appearance. HENT: Head: Normocephalic and atraumatic. Right Ear: Tympanic membrane, ear canal and external ear normal. Left Ear: Tympanic membrane, ear canal and external ear normal. Nose: Nose normal. Mouth/Throat: Mouth: Mucous membranes are moist. Eyes: Extraocular Movements: Extraocular movements intact. Conjunctiva/sclera: Conjunctivae normal. Cardiovascular: Rate and Rhythm: Normal rate and regular rhythm. Pulses: Normal pulses. Heart sounds: Normal heart sounds. Pulmonary: Effort: Pulmonary effort is normal. Breath sounds: Normal breath sounds. Abdominal: General: Bowel sounds are normal. There is no distension. Palpations: Abdomen is soft. There is no mass. Tenderness: There is no abdominal tenderness. Genitourinary: Comments: Yeast infection with vaginal irritation noted , as well as 2 small skin tears to her bilat buttocks Musculoskeletal: General: Normal range of motion. Cervical back: Normal range of motion and neck supple. Skin: General: Skin is warm and dry. Capillary Refill: Capillary refill takes 2 to 3 seconds. Findings: No rash. Neurological: General: No focal deficit present. Mental Status: She is alert and oriented to person, place, and time. Psychiatric: Mood and Affect: Mood normal. Behavior: Behavior normal. Thought Content: Thought content normal. Judgment: Judgment normal. ASSESSMENT AND PLAN: No follow-ups on file. Problem List Items Addressed This Visit Benign essential hypertension (CMS/HCC) Under control at this time no med changes Relevant Orders Comprehensive metabolic panel Type 2 diabetes mellitus with hyperglycemia, with long-term current use of insulin (CMS/HCC) Non complaint d/t living conditions Encouraged her to take insulin as directed Will also refer her to Diabetes Care at [facility] in [place] Relevant Orders Lipid panel Microalbumin / creatinine, urine ratio Urinalysis with reflex microscopic (clean catch) Hemoglobin A1c Comprehensive metabolic panel COPD (chronic obstructive pulmonary disease) (CMS/HCC) Breathing appears stable at this time Relevant Orders CBC and differential Gastroesophageal reflux disease without esophagitis Relevant Orders Comprehensive metabolic panel Ankylosing spondylitis of lumbar region (CMS/HCC) Anxiety and depression (CMS/HCC) Stable, despite her current living conditions Relevant Orders TSH W/REFLEX TO FT4 Yeast infection involving the vagina and surrounding area Likely d/t uncontrolled sugar Will treat with diflucan Relevant Medications fluconazole (Diflucan) 150 MG tablet Other Visit Diagnoses Diabetes mellitus due to underlying condition with diabetic polyneuropathy, with long-term current use of insulin (CMS/HCC) - Primary snf (current) use of insulin (Z79.4) documented in this encounter [facility] 01-12-2023 Note PROCEDURE: US SINGLE QUAD RT UPPER, 01/12/2023 4:24 PM EDT CLINICAL INDICATIONS: Right upper quadrant abdominal pain, chest pain, symptoms for one week COMPARISON: None TECHNIQUE: Right upper quadrant abdominal sonogram FINDINGS: Visualized pancreas is unremarkable. No ductal dilatation is seen. Portions of head and tail segments obscured. Hepatic parenchyma is normal in morphology and echogenicity. Hepatic contour is smooth. Focal hepatic abnormality is not seen. Visualized portal vein is patent with antegrade phasic flow, normal velocity. Right kidney is normal in morphology. It measures 10.0 x 4.8 x 4.1 cm. No hydronephrosis or shadowing calculus is identified. Focal renal abnormality is not demonstrated. Common bile duct is dilated up to 1.2 cm.There is gallbladder wall thickening up to 0.4 cm. A 2.7 x 2.4 x 2.5 cm calculus at the gallbladder neck level is noted. Gallbladder measures up to 4.3 cm diameter. Localized pain is not evident. No free fluid. IMPRESSION: 1. 2.7 cm gallbladder calculus, gallbladder neck level with gallbladder wall thickening, no localized pain. Common bile duct dilated 1.2 cm. Acute or chronic cholecystitis is a consideration. Magnetic resonance cholangiopancreatography may be helpful in further assessment. Electronically authenticated by: OTILIO CARRASQUILLO Date: 2023-01-12 17:18 [facility] Evaluation note Diagnosis Diabetes mellitus due to underlying condition with diabetic polyneuropathy, with long-term current use of insulin (CMS/HCC)- Primary Chronic obstructive pulmonary disease, unspecified COPD type (CMS/HCC) Benign essential hypertension (CMS/HCC) Essential hypertension, benign Gastroesophageal reflux disease without esophagitis Esophageal reflux Type 2 diabetes mellitus with hyperglycemia, with long-term current use of insulin (CMS/HCC) Anxiety and depression (CMS/HCC) Ankylosing spondylitis of lumbar region (CMS/HCC) Yeast infection involving the vagina and surrounding area Candidiasis of vulva and vagina terminal manager (current) use of insulin (Z79.4) documented in this encounter [facility] HealthcareEvaluation note* Diagnosis Diabetic mononeuropathy associated with type 2 diabetes mellitus (HCC) (CMS/HCC) Gastroesophageal reflux disease without esophagitis Esophageal reflux documented in this encounter [facility] HealthcareEvaluation note* Diagnosis Diabetes mellitus due to underlying condition with diabetic polyneuropathy, with long-term current use of insulin ([facility]/HCC)- Primary Chronic obstructive pulmonary disease, unspecified COPD type (CMS/HCC) Benign essential hypertension (CMS/HCC) Essential hypertension, benign Gastroesophageal reflux disease without esophagitis Esophageal reflux Type 2 diabetes mellitus with hyperglycemia, with long-term current use of insulin ([facility]CC) Anxiety and depression (CMS/HCC) Ankylosing spondylitis of lumbar region (CMS/HCC) Yeast infection involving the vagina and surrounding area Candidiasis of vulva and vagina snf (current) use of insulin (Z79.4) Type 2 diabetes mellitus with hyperglycemia, with long-term current use of insulin ([facility]/HCC)- Primary Diabetes mellitus due to underlying condition with diabetic polyneuropathy, with long-term current use of insulin (CMS/HCC) Mixed hyperlipidemia (CMS/HCC) Mixed hyperlipidemia Anxiety and depression (CMS/HCC) Gastroesophageal reflux disease without esophagitis Esophageal reflux Benign essential hypertension (CMS/HCC) Essential hypertension, benign Diabetic mononeuropathy associated with type 2 diabetes mellitus (HCC) ([facility]/HCC) Type 2 diabetes mellitus with hyperglycemia, with long-term current use of insulin ([facility]/HCC)- Primary Diabetic mononeuropathy associated with type 2 diabetes mellitus (HCC) ([facility]/HCC) Benign essential hypertension (CMS/HCC) Essential hypertension, benign Gastroesophageal reflux disease without esophagitis Esophageal reflux Aortic valve disorder Aortic valve disorders Malignant melanoma, unspecified site (CMS/HCC) Diabetic retinopathy associated with type 2 diabetes mellitus, macular edema presence unspecified, unspecified laterality, unspecified retinopathy severity ([facility]) Encounter for subsequent annual wellness visit (AWV) in Medicare patient- Primary Benign essential hypertension (CMS/HCC) Essential hypertension, benign Type 2 diabetes mellitus with hyperglycemia, with long-term current use of insulin (CMS/HCC) Orthostatic hypotension Type 2 diabetes mellitus with hyperglycemia, with long-term current use of insulin (CMS/HCC)- Primary Type 2 diabetes mellitus with hyperglycemia (CMS/HCC) Gastroesophageal reflux disease without esophagitis Esophageal reflux Overweight (BMI 25.0-29.9) Overweight Type 2 diabetes mellitus with hyperglycemia, with long-term current use of insulin (CMS/HCC)- Primary Overweight (BMI 25.0-29.9) Overweight Dental infection Sebaceous cyst of axilla Upper respiratory tract infection, unspecified type Type 2 diabetes mellitus with hyperglycemia, with long-term current use of insulin (CMS/HCC) documented in this encounter [facility] HealthcareEvaluation note* Diagnosis Diabetes mellitus due to underlying condition with diabetic polyneuropathy, with long-term current use of insulin (CMS/HCC)- Primary Chronic obstructive pulmonary disease, unspecified COPD type (CMS/HCC) Benign essential hypertension (CMS/HCC) Essential hypertension, benign Gastroesophageal reflux disease without esophagitis Esophageal reflux Type 2 diabetes mellitus with hyperglycemia, with long-term current use of insulin (CMS/HCC) Anxiety and depression (CMS/HCC) Ankylosing spondylitis of lumbar region (CMS/HCC) Yeast infection involving the vagina and surrounding area Candidiasis of vulva and vagina terminal manager (current) use of insulin (Z79.4) Type 2 diabetes mellitus with hyperglycemia, with long-term current use of insulin (CMS/HCC)- Primary Diabetes mellitus due to underlying condition with diabetic polyneuropathy, with long-term current use of insulin (CMS/HCC) Mixed hyperlipidemia (CMS/HCC) Mixed hyperlipidemia Anxiety and depression (CMS/HCC) Gastroesophageal reflux disease without esophagitis Esophageal reflux Benign essential hypertension (CMS/HCC) Essential hypertension, benign Diabetic mononeuropathy associated with type 2 diabetes mellitus (HCC) (CMS/HCC) Type 2 diabetes mellitus with hyperglycemia, with long-term current use of insulin (CMS/HCC)- Primary Diabetic mononeuropathy associated with type 2 diabetes mellitus (HCC) (CMS/HCC) Benign essential hypertension (CMS/HCC) Essential hypertension, benign Gastroesophageal reflux disease without esophagitis Esophageal reflux Aortic valve disorder Aortic valve disorders Malignant melanoma, unspecified site (CMS/HCC) Diabetic retinopathy associated with type 2 diabetes mellitus, macular edema presence unspecified, unspecified laterality, unspecified retinopathy severity ([facility]) Encounter for subsequent annual wellness visit (AWV) in Medicare patient- Primary Benign essential hypertension ([facility]) Essential hypertension, benign Type 2 diabetes mellitus with hyperglycemia, with long-term current use of insulin ([facility]) Orthostatic hypotension Type 2 diabetes mellitus with hyperglycemia, with long-term current use of insulin ([facility])- Primary Type 2 diabetes mellitus with hyperglycemia ([facility]) Gastroesophageal reflux disease without esophagitis Esophageal reflux Overweight (BMI 25.0-29.9) Overweight Type 2 diabetes mellitus with hyperglycemia, with long-term current use of insulin ([facility])- Primary Overweight (BMI 25.0-29.9) Overweight Dental infection Sebaceous cyst of axilla Upper respiratory tract infection, unspecified type Type 2 diabetes mellitus with hyperglycemia, with long-term current use of insulin ([facility])- Primary Abdominal pain, RLQ Benign essential hypertension ([facility]) Essential hypertension, benign Diabetic mononeuropathy associated with type 2 diabetes mellitus (HCC) ([facility]) Overweight (BMI 25.0-29.9) Overweight Ankylosing spondylitis of lumbar region ([facility]) documented in this encounter [facility] HealthcareEvaluation note* Diagnosis Diabetes mellitus due to underlying condition with diabetic polyneuropathy, with long-term current use of insulin ([facility])- Primary Chronic obstructive pulmonary disease, unspecified COPD type ([facility]) Benign essential hypertension ([facility]) Essential hypertension, benign Gastroesophageal reflux disease without esophagitis Esophageal reflux Type 2 diabetes mellitus with hyperglycemia, with long-term current use of insulin ([facility]) Anxiety and depression ([facility]) Ankylosing spondylitis of lumbar region ([facility]) Yeast infection involving the vagina and surrounding area Candidiasis of vulva and vagina snf (current) use of insulin (Z79.4) Type 2 diabetes mellitus with hyperglycemia, with long-term current use of insulin ([facility])- Primary Diabetes mellitus due to underlying condition with diabetic polyneuropathy, with long-term current use of insulin ([facility]) Mixed hyperlipidemia ([facility]) Mixed hyperlipidemia Anxiety and depression ([facility]) Gastroesophageal reflux disease without esophagitis Esophageal reflux Benign essential hypertension ([facility]) Essential hypertension, benign Diabetic mononeuropathy associated with type 2 diabetes mellitus (HCC) ([facility]) Type 2 diabetes mellitus with hyperglycemia, with long-term current use of insulin (CMS/HCC)- Primary Diabetic mononeuropathy associated with type 2 diabetes mellitus (HCC) (CMS/HCC) Benign essential hypertension (CMS/HCC) Essential hypertension, benign Gastroesophageal reflux disease without esophagitis Esophageal reflux Aortic valve disorder Aortic valve disorders Malignant melanoma, unspecified site (CMS/HCC) Diabetic retinopathy associated with type 2 diabetes mellitus, macular edema presence unspecified, unspecified laterality, unspecified retinopathy severity (CMS/HCC) Encounter for subsequent annual wellness visit (AWV) in Medicare patient- Primary Benign essential hypertension (CMS/HCC) Essential hypertension, benign Type 2 diabetes mellitus with hyperglycemia, with long-term current use of insulin (CMS/HCC) Orthostatic hypotension Type 2 diabetes mellitus with hyperglycemia, with long-term current use of insulin (CMS/HCC)- Primary Type 2 diabetes mellitus with hyperglycemia (CMS/HCC) Gastroesophageal reflux disease without esophagitis Esophageal reflux Overweight (BMI 25.0-29.9) Overweight Type 2 diabetes mellitus with hyperglycemia, with long-term current use of insulin (CMS/HCC)- Primary Overweight (BMI 25.0-29.9) Overweight Dental infection Sebaceous cyst of axilla Upper respiratory tract infection, unspecified type Type 2 diabetes mellitus with hyperglycemia, with long-term current use of insulin (CMS/HCC)- Primary Abdominal pain, RLQ Benign essential hypertension (CMS/HCC) Essential hypertension, benign Diabetic mononeuropathy associated with type 2 diabetes mellitus (HCC) (CMS/HCC) Overweight (BMI 25.0-29.9) Overweight Ankylosing spondylitis of lumbar region (CMS/HCC) Eye pain, bilateral- Primary Benign essential hypertension (CMS/HCC) Essential hypertension, benign Type 2 diabetes mellitus with hyperglycemia, with long-term current use of insulin (CMS/HCC) Mixed hyperlipidemia (CMS/HCC) Mixed hyperlipidemia Anxiety and depression (CMS/HCC) Asthma, unspecified asthma severity, unspecified whether complicated, unspecified whether persistent (CMS/HCC) Ankylosing spondylitis of lumbar region (CMS/HCC) Gastroesophageal reflux disease without esophagitis Esophageal reflux Overweight (BMI 25.0-29.9) Overweight Diabetic polyneuropathy associated with type 2 diabetes mellitus (CMS/HCC) documented in this encounter [facility] HealthcareEvaluation note* Diagnosis Melanocytic nevus of right lower extremity- Primary Personal history of malignant melanoma of skin Epidermal inclusion cyst Sebaceous cyst Acrochordon Unspecified hypertrophic and atrophic condition of skin Melanocytic nevus of right shoulder Xerosis cutis Other specified disease of sebaceous glands Pain Generalized pain documented in this encounter [facility] HealthcareEvaluation note* Diagnosis Ankylosing spondylitis of lumbar region ([facility])- Primary Anxiety and depression ([facility]) Type 2 diabetes mellitus with hyperglycemia, with long-term current use of insulin ([facility]) Benign essential hypertension ([facility]) Essential hypertension, benign Asthma, unspecified asthma severity, unspecified whether complicated, unspecified whether persistent ([facility]) Mixed hyperlipidemia ([facility]) Mixed hyperlipidemia documented in this encounter [facility] Healthcare[facility] note* Diagnosis Type 2 diabetes mellitus with hyperglycemia, with long-term current use of insulin ([facility])- Primary Overweight (BMI 25.0-29.9) Overweight Dental infection Sebaceous cyst of axilla Upper respiratory tract infection, unspecified type documented in this encounter [facility] Summary Purpose Family History No Family History Records FoundNo Family History Records FoundNo Family History Records FoundNo Family History Records FoundNo Family History Records Found Advance Directives No Advanced Directives Records FoundNo Advanced Directives Records FoundNo Advanced Directives Records FoundNo Advanced Directives Records FoundNo Advanced Directives Records Found Reason for Referral Specialty Diagnoses / Procedures Referred By Contavelino t Referred To Contact Diagnoses Type 2 diabetes mellitus with hyperglycemia, with long-term current use of insulin ([facility]) Corrine Teague, TIMUR [address] [place] [address] Referral ID Status Reason Start Date Expiration Date V isits Requested Visits Authorized [id number] Pending Review 05/08/2024 11/04/2024 1 1 Additional Source Comments INFORMATION SOURCE (unrecogn ized section and content) DATE CREATED AUTHOR 03/28/2019 [facility] DATE CREATED AUTHOR AUTHOR'S ORGANIZ ATION 2023 [facility] DATE CREATED AUTHOR AUTHOR'S ORGANIZ ATION 07/05/2024 [facility] DATE CREATED AUTHOR AUTHOR'S ORGANIZ ATION 08/16/2024 [facility] EPIC DATE CREATED AUTHOR AUTHOR'S ORGANIZ ATION 10/08/2024 [facility] Care Teams (unrecognized sec tion and content) Wrist Closer Relationship Specialty Start Date End Date Agustin Swanson MD [address] [place] [phone] PCP - General Family Medicine 09/04/22 Corrine Teague NP [address] [place] [address] Nurse Practitioner Family Medicine 09/04/22 Wrist Closer Relationship Specialty Start Date End Date Agustin Swanson MD [address] [place] [address] PCP - General Family Medicine 09/04/22 Corrine Teague NP [address] [place] [address] Nurse Practitioner Family Medicine 09/04/22 Wrist Closer Relationship Specialty Start Date End Date Agustin Swanson MD [address] [place] [phone] PCP - General Family Medicine 09/04/22 Corrine Teague NP [address] [place] [address] Nurse Practitioner Family Medicine 09/04/22 Wrist Closer Relationship Specialty Start Date End Date Agustin Swanson MD [address] [place] [address] PCP - General Family Medicine 10/26/23 Corrine Teague NP [address] [place] [address] Nurse Practitioner Family Medicine 09/04/22 Corrine Teague NP [address] [place] [address] Nurse Practitioner Family Medicine 10/26/23 Wrist Closer Relationship Specialty Start Date End Date Agustin Swanson MD [address] [place] [address] PCP - General Family Medicine 10/26/23 Corrine Teague NP [address] [place] [address] Nurse Practitioner Family Medicine 09/04/22 Corrine Teague NP [address] [place] [address] Nurse Practitioner Family Medicine 10/26/23 Wrist Closer Relationship Specialty Start Date End Date Agustin Swanson MD [address] [place] [address] PCP - General Family Medicine 10/26/23 Corrine Teague NP [address] [place] [address] Nurse Practitioner Family Medicine 09/04/22 Corrine Teague NP [address] [place] [address] Nurse Practitioner Family Medicine 10/26/23 Wrist Closer Relationship Specialty Start Date End Date Unallocated, Noms MD [address] [place] [address] PCP - General Family Medicine 06/25/24 Corrine Teague NP [address] [place] [address] Nurse Practitioner Family Medicine 09/04/22 Corrine Teague NP [address] [place] [address] Nurse Practitioner Family Medicine 10/26/23 Wrist Closer Relationship Specialty Start Date End Date Agustin Swanson MD [address] [place] [phone] PCP - General Family Medicine 07/04/24 Corrine Teague NP [address] [place] [address] Nurse Practitioner Family Medicine 09/04/22 Corrine Teague NP [address] [place] [address] Nurse Practitioner Family Medicine 10/26/23 Wrist Closer Relationship Specialty Start Date End Date Agustin Swanson MD [address] [place] [address] PCP - General Family Medicine 07/04/24 Corrine Teague NP [address] [place] [address] Nurse Practitioner Family Medicine 09/04/22 Corrine Teague NP [address] [place] [address] Nurse Practitioner Family Medicine 10/26/23 Wrist Closer Relationship Specialty Start Date End Date Agustin Swanson MD [address] [place] [address] PCP - General Family Medicine 10/26/23 Corrine Teague NP [address] [place] [address] Nurse Practitioner Family Medicine 09/04/22 Corrine Teague NP [address] [place] [address] Nurse Practitioner Family Medicine 10/26/23 Wrist Closer Relationship Specialty Start Date End Date Agustin Swanson MD [address] [place] [address] PCP - General Family Medicine 10/26/23 Corrine Teague NP [address] [place] [address] Nurse Practitioner Family Medicine 09/04/22 Corrine Teague NP [address] [place] [address] Nurse Practitioner Family Medicine 10/26/23 Wrist Closer Relationship Specialty Start Date End Date Agustin Swanson MD [address] [place] [address] PCP - General Family Medicine 10/26/23 Corrine Teague NP [address] [place] [address] Nurse Practitioner Family Medicine 09/04/22 Corrine Teague NP [address] [place] [address] Nurse Practitioner Family Medicine 10/26/23 Wrist Closer Relationship Specialty Start Date End Date Agustin Swanson MD [address] [place] [address] PCP - General Family Medicine 10/26/23 Corrine Teague NP [address] [place] [address] Nurse Practitioner Family Medicine 09/04/22 Corrine Teague NP [address] [place] [address] Nurse Practitioner Family Medicine 10/26/23 Wrist Closer Relationship Specialty Start Date End Date Agustin Swanson MD [address] [place] [address] PCP - General Family Medicine 10/26/23 Corrine Teague NP [address] [place] [address] Nurse Practitioner Family Medicine 09/04/22 Corrine Teague NP [address] [place] [address] Nurse Practitioner Family Medicine 10/26/23 Wrist Closer Relationship Specialty Start Date End Date Agustin Swanson MD [address] [place] [address] PCP - General Family Medicine 07/04/24 Corrine Teague NP [address] [place] [address] Nurse Practitioner Family Medicine 09/04/22 Corrine Teague NP [address] [place] [address] Nurse Practitioner Family Medicine 10/26/23 Reason for Visit (unrecogniz ed section and content) Reason Comments Diabetes Reason Comments Suspicious Skin Lesion Specialty Diagnoses / Procedures Referred By Contac t Referred To Contact Dermatology Diagnoses Malignant melanoma, unspecified site (CMS/HCC) skin lesion of L thigh-suspicious for melanoma Procedures MS OFFICE/OUTPATIENT NEW HIGH MDM 60 MINUTES Corrine Teague NP [address] [place] [address] Kojo Calabrese PA [address] [place] [address] Referral ID Status Reason Start Date Expiration Date V isits Requested Visits Authorized [id number] Closed Specialty Services Required 02/22/2024 08/20/2024 1 1 Reason Comments New Med Request FOR RECORDS PERTAINING TO PATIENTS WHO ARE OR HAVE BEEN ENROLLED IN A CHEMICAL DEPENDENCY/SUBSTANCEABUSE PROGRAM, SOME INFORMATION MAY BE OMITTED. This clinical summary was aggregated from multiple sources. Caution should be exercised in using it in the provision of clinical care. This summary normalizes information from multiple sources, and as a consequence, information in this document may materially change the coding, format and clinical context of patient data. In addition, data may be omitted in some cases. CLINICAL DECISIONS SHOULD BE BASED ON THE PRIMARY CLINICAL RECORDS. [facility] [employer] [facility]. provides no warranty or guarantee of the accuracy or completeness of information in this document.
--- NOTE | 2024-10-28 07:55 | NM_ITS ---
Patient Name: GIORGIO CARSON MR#: [id number] : 1960 Exam Date: 10/28/2024 Ordering Doctor: MED GROSS M.D. RADIOLOGY REPORT PROCEDURE: NM KIANNA PERF SPECT REST STR COMPARISON: None. INDICATIONS: CHEST PAIN, SYNCOPE AND COLLAPSE TECHNIQUE: Exam Description: Stress/Rest one day protocol gated SPECT Rest Imagin.0 mCi Tc-99m Cardiolite IV on 10/28/2024 Stress Imaging 29.5 mCi Tc-99m Cardiolite IV on 10/28/2024 Exercise Protocol: 0.4 mg Lexiscan given IV Heart Rate (bpm): Rest: 67 Max: 89 PMHR: 56 Blood Pressure: Rest: 138/78 Max: 152/82 Symptoms: Rest and peak stress ECG findings were normal and the exercise portion of the study was normal per attending physician Dr. Gross . For more details, please see separate cardiac stress test report. FINDINGS: QUALITY OF STUDY: Good PERFUSION DEFECT: None WALL MOTION: Normal wall motion LV SIZE: 73 mL. TID / TCD: 0.7 LVEF: Calculated EF 84%. SUMMARY: Myocardial perfusion imaging study is normal CONCLUSION: 1. Myocardial perfusion is normal with soft tissue attenuation 2. Global left ventricular systolic function is hyperdynamic 3. No evidence of transient ischemic dilatation Dictated by: Saleem Mims M.D. on 10/30/2024 at 13:31 Approved by: Saleem Mims M.D. on 10/30/2024 at 13:34
--- NOTE | 2024-10-28 08:15 | CA_ITS ---
Patient Name: GIORGIO CARSON MR#: [id number] : 1960 Exam Date: 10/28/2024 Ordering Doctor: MED CALIXTO M.D. ECHOCARDIOGRAM REPORT PROCEDURE: CA ECHO DOPPLER COMPLETE INDICATIONS: Mitral valve and aortic valve insufficiency, hypertension, diabetes COMPARISON: None. DESCRIPTION: COMPLETE ECHOCARDIOGRAM Real-time transthoracic echocardiography with 2D, M-mode, spectral and color flow Doppler performed. QUALITY: Technical quality was good. LEFT VENTRICLE: Normal chamber size. Proximal septal hypertrophy (sigmoid septum). LV EF: Global left ventricular systolic function is normal; visually estimated ejection fraction is 55 to 60%. No significant wall motion abnormalities. DIASTOLIC: Normal diastolic function. ATRIAL SEPTUM: Visually appears intact. LEFT ATRIUM: Normal chamber size. RIGHT ATRIUM: Normal chamber size. RIGHT VENTRICLE: Normal chamber size. Normal right ventricular systolic function. TRICUSPID VALVE: Normal mobility and thickness. No stenosis with trivial regurgitation. No evidence of pulmonary hypertension. RVSP 31 mmHg MITRAL VALVE: Normal mobility and thickness. No evidence of mitral valve stenosis. There is no mitral annular calcification. Mild to moderate mitral regurgitation. AORTIC VALVE: Normal trileaflet appearance. Normal leaflet mobility. Doppler velocity suggests no significant aortic valve stenosis. Multifocal calcifications. Peak velocity 1.96 m/s, mean gradient 9 mmHg. DVI 0.5, RONA 1.8 cm2. Mild aortic regurgitation. AORTIC ROOT: Normal diameter and appearance. Ascending aorta is normal in size. PULMONIC VALVE: Normal thickness and mobility. No stenosis. Trivial regurgitation. PERICARDIUM: No evidence of pericardial effusion. IVC: Collapses with inspirations. IVC is normal in size. CONCLUSION: 1. Global left ventricular systolic function is normal; visually estimated ejection fraction is 55 to 60% 2. Normal right ventricular size and systolic function 3. Normal left atrial size 4. Normal diastolic function 5. Mild to moderate mitral regurgitation 6. Mild aortic valve regurgitation Adult Echocardiography Procedure Report Left Ventricle LVEDD (3.7 - 5.6 cm): 3.97 cm LVESD (2.2 - 4.0 cm): 2.99 cm LVIVS thickness (0.6 - 1.2 cm): 1.15 cm LVPW thickness (0.5 - 1.0 cm): 0.92 cm e': 0.09 m/s E - e': 9.91 LVOT Max Gradient: 3.55 mm[Hg] LVOT Area (cm2): 0.94 m/s Peak Velocity (LVOT): 0.94 m/s Mean Velocity (LVOT): 0.65 m/s LVOT Diameter 2.13 cm Left Atrium LA Volume Index (2D A2C): 32.31 ml/m2 Left Atrium Systolic Dimension: 4.06 cm Mitral Valve MV E to A Ratio: 0.76 Mitral Valve A-Wave Peak Velocity: 1.12 m/s Mitral Valve E-Wave Peak Velocity: 0.85 m/s Right Ventricle Aorta AO Root Diam: 3.59 cm Ascending Ao Diam: 2.45 cm Aortic Valve AoV Area (Peak Alexx): 1.71 cm2, 1.71 cm2, 3.53 cm2, 3.53 cm2 AoV Area (VTI): 1.80 cm2, 1.80 cm2 Peak Velocity(Antegrade Flow): 1.96 m/s, 0.95 m/s Peak Gradient(Antegrade Flow): 15.37 mm[Hg], 3.60 mm[Hg] Mean Velocity(Antegrade Flow): 1.37 m/s Mean Gradient(Antegrade Flow): 8.35 mm[Hg] Velocity Time Integral: 45.22 cm Tricuspid Valve Peak Velocity (Regurgitant Flow): 2.63 m/s Pulmonic Valve Mean Gradient: 2.12 mm[Hg] Mean Velocity: 0.68 m/s Peak Velocity: 1.00 m/s, 0.96 m/s Peak Gradient: 3.69 mm[Hg], 3.98 mm[Hg] Right Atrium Right Atrium Systolic Pressure: 33.08 ml, 33.08 ml Dictated by: Saleem Mims M.D. on 10/28/2024 at 15:45 Approved by: Saleem Mims M.D. on 10/28/2024 at 15:49
[2024-10-28] MEDS: REGADENOSON 0.4 MG/5 ML SYRINGE IV (10:46)
--- NOTE | 2024-10-28 11:15 | PC.NURSE ---
Nursing Note Cardiac Stress Test Reviewed: Medication, allergies and patient history reviewed. Stress Test: [x ] Patient tolerated stress test well. [ ] Patient unable to tolerate walking on treadmill. Switched to Lexiscan stress test. [x ] No chest pain noted per patient [ ] Chest pain that resolved prior to leaving stress lab. [ x] No dyspnea noted. [ ] Dyspnea that resolved prior to leaving stress lab. [ x Patient left stress lab asymptomatic and hemodynamically stable. [ ] Patient taken to the Emergency Room due to non-resolving symptoms following stress test. [ ] Patient achieved target heart rate. [ ] Patient unable to achieve target heart rate. [ ] Aminophylline administered as reversal agent to Lexiscan (Regadenoson). [ ] Nitro administered. Nursing Comments:
== END 2024-10-28 07:46 | disposition home or self-care (01) ==
LOC: NM 07:45
PROVIDERS: PCP Nurse Practitioner; Visit Provider Internal Medicine Cardiovascular Disease
DX: R07.89 Other chest pain (principal); R55 Syncope and collapse; I35.1 Nonrheumatic aortic (valve) insufficiency; R06.02 Shortness of breath
CPT/HCPCS: 78452; 93017; 93306; A9500; J2785

== ENCOUNTER 2024-11-27 12:25 | Outpatient (OUT) | payer MEDICARE, SELFPAY ==
--- NOTE | 2024-11-27 12:50 | CT_ITS ---
The [address] [address] Patient Name: GIORGIO CARSON MRN: [id number] date: 1960 Sex: F Assigned Patient Location: CT Current Patient Location: CT Accession/Order Number: [id number] Exam Date: 11/27/2024 14:51 Report Date: 11/27/2024 14:55 At the request of: STEFFI PRINGLE DO Procedure: CT chest high res CT CHEST WITHOUT IV CONTRAST: High-resolution protocol. CLINICAL HISTORY: Abnormal Pulmonary Function Test COMPARISON: CTA chest 01/12/2023 TECHNIQUE: Spiral images were obtained through the chest without IV contrast. High-resolution protocol was utilized with both supine and prone imaging. This CT exam was performed using one or more following dose reduction techniques: Automated exposure control, adjustment of the mA and/or kV according to patient size, or use of iterative reconstruction technique. FINDINGS: Mediastinum:Thoracic aorta appears normal in caliber. Pulmonary trunk appears nondilated. No pericardial effusion or lymphadenopathy. The esophagus is grossly unremarkable. Lungs:No consolidation pneumothorax or pleural effusion. Mild lung scarring. Trachea and distal airways appear patent. No suspicious pulmonary nodule or mass. No bronchiectasis, groundglass opacities, septal thickening or honeycombing to suggest underlying interstitial lung disease. Abd:Cholelithiasis. No acute findings. Soft tissues/Bones: Soft tissues demonstrate no acute process. Osseous structures demonstrate degenerative change. CT/CT chest high res IMPRESSION: No definitive CT evidence of interstitial lung disease. Cholelithiasis. Impression dictated by: Audi Fleming Jr. DAlvinaOAlvina11/27/2024 2:55 PM Dictation Location: [employer] Electronically authenticated by: [id number] Y Date: 11/27/2024 14:55
== END 2024-11-27 12:26 | disposition home or self-care (01) ==
LOC: CT 12:25
PROVIDERS: PCP Nurse Practitioner; Visit Provider Internal Medicine
DX: M45.6 Ankylosing spondylitis lumbar region (principal); R94.2 Abnormal results of pulmonary function studies; K80.20 Calculus of gallbladder without cholecystitis without obstruction
CPT/HCPCS: 71250

== ENCOUNTER 2024-12-23 19:31 | Emergency (ER) | payer MEDICARE, SELFPAY ==
[2024-12-23] VITALS (11 sets, daily range): BP systolic 119–140; BP diastolic 57–66; PULSE 65–78; TEMP 36.7; O2SAT 93–98; BMI 30.4
--- NOTE | 2024-12-23 19:57 | ECG_ITS ---
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 Measurements Intervals [place] Rate: 62 P: 55 [place]: 178 QRS: 41 QRSD: 82 T: 43 QT: 402 QTc: 408 Interpretive Statements 1100 Sinus rhythm 1102 Sinus arrhythmia 9110 normal ECG Compared to ECG 01/12/2023 18:23:43 Supraventricular tachycardia/Atrial flutter no longer present ST (T wave) deviation no longer present Electronically Signed On 12-23-2024 21:52:08 EDT by IHSAN BRADLEY M.D.
--- NOTE | 2024-12-23 20:00 | ED_ITS ---
HPI HPI - Head Injury General Chief complaint: Head Injury Stated complaint: FALL EARLIER TODAY-HEAD INJURY Time Seen by Provider: 12/23/24 19:34 Source: patient Mode of arrival: walk-in History of Present Illness HPI Narrative: This 64-year-old female with a history of heart disease and diabetes as well as ankylosing spondylosis of the spine presents for evaluation of a global headache and increased neck pain. The patient states she has a history of syncopal events and today was in her kitchen and did not have any warning and passed out striking the back of her head on the corner of the checkering machine operator. She has a small indentation in the posterior aspect of her right occipital scalp area and neck pain. She denies any chest pain or shortness of breath. She states she has had multiple episodes of syncope in the past but usually has some warning signs. She states that her sugar dropped and her Dexcom was alarming when she passed out. She states it went down into the 70s. She states her glucose has been very irregular lately going from low to very high. She took some Tylenol this afternoon for her headache without clinical improvement. She has no focal weakness numbness or tingling. She has no slurred speech blurred vision or confusion. Related Data Allergies Allergy/AdvReac Type Severity Reaction Status Date / Time No Known Drug Allergies Allergy Verified 12/23/24 19:39 Opioid HPI Opioid Management Most Recent Pain and Opioid Data: Last Pain Scale 8 12/23/24 20:08 12/23/24 Review of Systems ROS Status of ROS 10 or more systems reviewed and unremark able except as noted in history and below PFSH PFSH Social History Little interest or pleasure in doing things: not at all Feeling down, depressed, or hopeless: not at all Exam Narrative Exam Narrative: Vital signs and Nursing Notes reviewed: Patient is afebrile with a normal pulse, normal blood pressure, she has not hypoxic with pulse ox of 97% on room air General: Awake, alert, oriented, no acute distress, lying comfortably on the stretcher-moves easily about the stretcher, GCS 15 HEENT: Normocephalic, proximately 2 cm air indented area on the right posterior occipital aspect of the scalp with mild local erythema. Pupils are equal and reactive, there is no facial droop, no oral injury, mucous membranes are moist and pink Neck: Supple, mild tenderness to palpation without bony step-off, tenderness is greatest on the right posterior cervical musculature Chest: Lungs are clear to auscultation with good air entry, there is no wheezing rhonchi or rales appreciated no accessory muscle use, patient is speaking in complete sentences-no chest wall tenderness to palpation CVS: Regular rate and rhythm S1-S2, no murmurs rubs or gallops, pulses are brisk and equal bilaterally ABD: Soft, nondistended, nontender, no rebound guarding or rigidity, bowel sounds are normal, no pulsatile masses appreciated Extremities: Moving all extremities, no lower extremity tenderness or swelling noted, negative Homans' sign, pulses are brisk and equal bilaterally Skin: Normal in appearance without rash,pallor, petechiae or purpura Neuro: No focal deficits, speech is clear, there is no facial droop, car lot attendant strength is intact, vision is grossly intact, negative pronator drift, positive rapid alternating hand movements, NIH stroke scale is 0 Constitutional Vital Signs, click to edit/add: Last Vital Signs Temp 98.1 F 12/23/24 19:34 Pulse 66 12/23/24 21:20 Resp 20 12/23/24 21:20 BP 135/65 12/23/24 21:00 Pulse Ox 93 L 12/23/24 21:20 O2 Del Method Room Air 12/23/24 19:34 Course Vital Signs Vital signs: Vital Signs Temperature 98.1 F 12/23/24 19:34 Pulse Rate 78 12/23/24 19:34 Respiratory Rate 18 12/23/24 19:34 Blood Pressure 127/58 12/23/24 19:34 Pulse Oximetry 97 12/23/24 19:34 Oxygen Delivery Method Room Air 12/23/24 19:34 Temperature 98.1 F 12/23/24 19:34 Pulse Rate 66 12/23/24 21:20 Respiratory Rate 20 12/23/24 21:20 Blood Pressure 135/65 12/23/24 21:00 Pulse Oximetry 93 L 12/23/24 21:20 Oxygen Delivery Method Room Air 12/23/24 19:34 MDM - Head Injury MDM Narrative Medical decision making narrative: This 64-year-old female with a history of hyperglycemia and coronary artery disease and also has cervical spondylosis and has a history of syncopal events especially if her glucose drops presents after she passed out earlier today when her glucose dropped into the 70s. She states that her diabetes has been really difficult to manage lately and at times it is greater than 500 and at other times it is low. She was at home today earlier in her kitchen and her Dexcom device alerted her that her sugar was low, in the 70s, shortly after that she passed out falling backwards and striking her head on her checkering machine operator. She states that she had a brief episode of loss of consciousness and when she came back around she had a tender area with an indentation in her right posterior occipital area. She also has a history of cervical spondylosis and is having more neck pain than usual. She has no focal neurologic symptoms. She denies any chest pain or shortness of breath. She has eaten since her sugar dropped. She took Tylenol for her neck pain. The patient's vital signs and physical exam are benign. EKG was ordered which is a sinus rhythm at 62 bpm with no acute findings. Cardiac workup was ordered. She has a normal white count and hemoglobin. Electrolytes are normal with a mildly elevated glucose at 256. She has a normal troponin. Normal lactic acid. CT scan of the brain is negative for acute findings but does show a right parietal scalp contusion without underlying calvarial fracture. CT scan of the cervical spine also shows mild multilevel cervical spondylosis without high-grade canal stenosis and mild multilevel facet arthrosis. The patient was medicated with a dose of [place] and Zofran in the emergency department and her headache has resolved. Her neuroexam remained stable. The results of her labs and scans were discussed with her. She feels comfortable being discharged home at this time. She was encouraged to follow-up closely with her family physician to help maintain close management of her diabetes. Lab Data Attestation: I reviewed the patient's lab results. Labs: Lab Results 12/23/24 Range/Units 20:05 WBC 12.8 H (4.0-11.0) 10^3/uL RBC 4.17 L (4.20-5.40) 10^6/uL Hgb 12.5 (12.0-16.0) g/dL Hct 36.8 (36.0-48.0) % MCV 88.2 (81.0-99.0) fL MCH 30.0 (26.7-34.0) pg MCHC 34.0 (29.9-35.2) g/dL RDW 13.2 (11.0-15.0) % Plt Count 254 (150-450) 10^3/uL MPV 11.1 (9.5-13.5) fL Neut % (Auto) 66.3 (43.0-75.0) % Lymph % (Auto) 26.1 (20.5-60.0) % [place] % (Auto) 5.6 (1.7-12.0) % Eos % (Auto) 1.1 (0.9-7.0) % Baso % (Auto) 0.5 (0.2-2.0) % Neut # (Auto) 8.5 H (1.4-6.5) 10^3/uL Lymph # (Auto) 3.3 (1.2-3.8) 10^3/uL [place] # (Auto) 0.7 (0.3-0.8) 10^3/uL Eos # (Auto) 0.1 (0.0-0.7) 10^3/uL Baso # (Auto) 0.1 (0.0-0.1) 10^3/uL Abs Immat Gran (auto) 0.05 H (0.00-0.03) 10^3/uL Imm/Tot Granulo (auto) 0.4 (0.0-0.5) % Sodium 138 (136-145) mmol/L Potassium 3.9 (3.5-5.1) mmol/L Chloride 103 (98-107) mmol/L Carbon Dioxide 28.3 (21.0-32.0) mmol/L Anion Gap 10.6 BUN 20.0 H (7.0-18.0) mg/dL Creatinine 1.04 H (0.55-1.02) mg/dL Est GFR ( Amer) >60 (>=60 mL/min/1.73m^2) Est GFR (Non-Af Amer) 54 L (>=60 mL/min/1.73m^2) BUN/Creatinine Ratio 19.2 Glucose 256 H (74-106) mg/dL Lactate 1.5 (0.4-2.0) mmol/L Calcium 8.9 (8.5-10.1) mg/dL Total Bilirubin 0.2 (0.2-1.0) mg/dL AST <5 L (15-37) U/L ALT 28 (14-59) U/L Alkaline Phosphatase 105 (46-116) U/L Troponin I High Sens 5.4 (4.0-51.3) pg/mL Total Protein 6.3 L (6.4-8.2) g/dL Albumin 3.0 L (3.4-5.0) g/dL Globulin 3.3 g/dL Albumin/Globulin Ratio 0.9 ECG Data Attestation: I personally reviewed and interpreted this ECG as follows: (Sinus rhythm with sinus arrhythmia at 62 bpm, normal axis, normal intervals, no acute ST segment elevation or T wave inversion) Discharge Plan Discharge Chief Complaint: Head Injury Clinical Impression: Closed head injury, Syncope, Cervical strain, acute Patient Disposition: Home, Self-Care Time of Disposition Decision: 21:23 Condition: Good Print Language: Persian Instructions: Syncope (ED), Head Injury (ED), Cervical Sprain (ED) Referrals: Corrine Teague NP [Primary Care Provider] - 1 week
[2024-12-23 20:20] LABS: Basophils Absolute Auto 0.1 10^3/uL (0.0-0.1); Basophils Percent Auto 0.5 % (0.2-2.0); Eosinophils Absolute Auto 0.1 10^3/uL (0.0-0.7); Eosinophils Percent Auto 1.1 % (0.9-7.0); Hematocrit 36.8 % (36.0-48.0); Hemoglobin 12.5 g/dL (12.0-16.0); Immature Granulocytes Abs Auto 0.05 10^3/uL (0.00-0.03); Immature Granulocytes Pct Auto 0.4 % (0.0-0.5); Lymphocytes Absolute Auto 3.3 10^3/uL (1.2-3.8); Lymphocytes Percent Auto 26.1 % (20.5-60.0); Mean Corpuscular Volume 88.2 fL (81.0-99.0); Mean Platelet Volume 11.1 fL (9.5-13.5); Monocytes Absolute Auto 0.7 10^3/uL (0.3-0.8); Monocytes Percent Auto 5.6 % (1.7-12.0); Neutrophils Absolute Auto 8.5 10^3/uL (1.4-6.5); Neutrophils Percent Auto 66.3 % (43.0-75.0); Platelet Count 254 10^3/uL (150-450); Red Blood Count 4.17 10^6/uL (4.20-5.40); Red Cell Distribution Width 13.2 % (11.0-15.0); White Blood Count 12.8 10^3/uL (4.0-11.0)
[2024-12-23] MEDS: ONDANSETRON 4 MG RAPDIS TABLET SL (20:20)
[2024-12-23] MEDS: HYDROCODONE/ACET 5-325 MG TABLET 1 TAB PO (20:20)
[2024-12-23 20:39] LABS: Lactate/Lactic Acid 1.5 mmol/L (0.4-2.0)
[2024-12-23 20:46] LABS: Alanine Aminotransferase 28 U/L (14-59); Albumin Globulin Ratio 0.9; Alkaline Phosphatase 105 U/L (46-116); Anion Gap 10.6; Aspartate Amino Transferase <5 U/L (15-37); BUN Creatinine Ratio 19.2; Bilirubin Total 0.2 mg/dL (0.2-1.0); Calcium 8.9 mg/dL (8.5-10.1); Carbon Dioxide 28.3 mmol/L (21.0-32.0); Chloride 103 mmol/L (98-107); Estimated GFR (African America >60 (>=60 mL/min/1.73m^2); Estimated GFR (Non-African Ame 54 (>=60 mL/min/1.73m^2); Globulin 3.3 g/dL; Glucose 256 mg/dL (74-106); Potassium 3.9 mmol/L (3.5-5.1); Sodium 138 mmol/L (136-145); Total Protein 6.3 g/dL (6.4-8.2); Troponin I High Sensitivity 5.4 pg/mL (4.0-51.3)
== END 2024-12-23 21:32 | disposition home or self-care (01) ==
PROVIDERS: Emergency Provider Emergency Medicine; PCP Nurse Practitioner
DX: S09.8XXA Other specified injuries of head, initial encounter (principal); S16.1XXA Strain of muscle, fascia and tendon at neck level, initial encounter; R55 Syncope and collapse; W18.39XA Other fall on same level, initial encounter; E11.9 Type 2 diabetes mellitus without complications; I25.10 Atherosclerotic heart disease of native coronary artery without angina pectoris; M47.812 Spondylosis without myelopathy or radiculopathy, cervical region
CPT/HCPCS: 36415; 70450; 72125; 80053; 83605; 84484; 85025; 93005; 99285; Q0162